=== PATIENT | male | born 1965 | race Caucasian/White ===

== ENCOUNTER 2016-11-23 00:56 | Emergency (ER) | payer OTHER ==
[2016-11-23 01:01] VITALS: BP 136/65
--- NOTE | 2016-11-23 01:42 | ED ---
Tonia Concepcion Matthew, scribed for Bryan Flores MD on 11/23/16 at 0138 . Psychiatric Complaint - HPI Summary HPI Summary: A 51 y/o male presents to the ED with panic attack since 5 days ago. He states that he has 2 panic attacks per day, which last between 2-3 hours. He believes his symptoms began, because he has been decreasing his dosage of seroquel. He has a Hx of panic attacks. - History Of Current Complaint Chief Complaint: [facility]entalHealth Time Seen by Provider: 11/23/16 01:31 Hx Obtained From: Patient Onset/Duration: Sudden Onset, Lasting Hours, Resolved Timing: Intermittent Episode Lasting - 2-3 hours, twice daily Severity Initially: Moderate Severity Currently: Moderate Character: Anxious Aggravating Factor(s): Other - Recent medication change - Allergies/Home Medications Allergies/Adverse Reactions: Allergies Allergy/AdvReac Type Severity Reaction Status Date / Time Shellfish Allergy Allergy Unknown Verified 04/23/14 14:56 Reaction Details PMH/Surg Hx/FS Hx/Imm Hx Endocrine/Hematology History: Denies: Hx Diabetes, Hx Thyroid Disease Cardiovascular History: Denies: Hx Hypertension Respiratory History: Reports: Hx Asthma - child anderson Denies: Hx Chronic Obstructive Pulmonary Disease (COPD) GI History: Denies: Hx Ulcer Psychiatric History: Reports: Other Psychiatric Issues/Disorders - Hx of panic attacks Infectious Disease History: No Infectious Disease History: Denies: Hx Hepatitis, Hx Human Immunodeficiency Virus (HIV), Traveled Outside the [place] in Last 30 Days - Family History Known Family History: Positive: Cardiac Disease, Diabetes - Social History Alcohol Use: Rare Substance Use Type: Reports: None Smoking Status (MU): Heavy Every Day Tobacco Smoker Type: Cigarettes Review of Systems Constitutional: Negative Eyes: Negative ENT: Negative Cardiovascular: Negative Respiratory: Negative Gastrointestinal: Negative Genitourinary: Negative Musculoskeletal: Negative Skin: Negative Neurological: Negative Psychological: Other - Panic Attacks All Other Systems Reviewed And Are Negative: Yes Physical Exam Triage Information Reviewed: Yes Vital Signs On Initial Exam: Initial Vitals Temp Pulse Resp BP Pulse Ox 97.9 F 116 20 136/65 99 11/23/16 00:58 11/23/16 00:58 11/23/16 00:58 11/23/16 00:58 11/23/16 00:58 Vital Signs Reviewed: Yes Appearance: Positive: Well-Appearing, No Pain Distress Skin: Positive: Warm Head/Face: Positive: Normal Head/Face Inspection Eyes: Positive: JOCELYN ENT: Positive: Hearing grossly normal Neck: Positive: Supple Respiratory/Lung Sounds: Positive: Breath Sounds Present Cardiovascular: Positive: RRR Abdomen Description: Positive: Nontender, Soft Musculoskeletal: Positive: Strength/ROM Intact Neurological: Positive: Alert, Oriented to Person Place, Time Psychiatric: Positive: Anxious Diagnostics - Vital Signs Vital Signs Temp Pulse Resp BP Pulse Ox 11/23/16 01:01 97.9 F 116 20 136/65 99 11/23/16 00:58 97.9 F 116 20 136/65 99 - Laboratory Result Diagrams: 11/23/16 01:50 11/23/16 01:50 Lab Statement: Any lab studies that have been ordered have been reviewed, and results considered in the medical decision making process. Course/Dx - Course Assessment/Plan: A 51 y/o male presents to the ED with panic attack since 5 days ago. He states that he has 2 panic attacks per day, which last between 2-3 hours. He believes his symptoms began, because he has been decreasing his dosage of Seroquel. He has a Hx of panic attacks. Labs were reviewed. The patient was cleared for a MHE and have evaluation determined to be safe for discharge. - Differential Dx/Clinical Impression Provider Diagnosis: Panic attack Discharge - Discharge Plan Condition: Stable Disposition: HOME Patient Education Materials: Panic Attack (ED) Referrals: Maxwell Suero MD [Primary Care Provider] - As Soon As Possible (Please call Dr. Suero , at your earliest convenience, for medication management.) The documentation as recorded by the Tonia aldana Matthew accurately reflects the service I personally performed and the decisions made by , Bryan Flores MD.
[2016-11-23 02:01] LABS: Hematocrit 39 % (42-52); Hemoglobin 13.1 g/dl (14.0-18.0); Mean Corpuscular HGB Conc 34 g/dl (31-36); Mean Corpuscular Hemoglobin 32 pg (27-31); Mean Corpuscular Volume 95 fL (80-94); Mean Platelet Volume 7 um3 (7.4-10.4); Red Blood Count 4.07 10^6/ul (4.0-5.4); Red Cell Distribution Width 13 % (10.5-15); White Blood Count 8.4 10^3/ul (3.5-10.8)
[2016-11-23 02:12] LABS: ALT 22 U/L (7-52); AST 21 U/L (13-39); Albumin 4.1 g/dL (3.2-5.2); Alkaline Phosphatase 85 U/L (34-104); Anion Gap 7 mmol/L (2-11); Blood Urea Nitrogen 14 mg/dL (6-24); CO2 Carbon Dioxide 25 mmol/L (22-32); Chloride 105 mmol/L (101-111); EGFR African American 77.5 (>60); EGFR Non-African American 60.3 (>60); Globulin 2.7 g/dL (2-4); Glucose 123 mg/dL (70-100); Potassium 3.6 mmol/L (3.5-5.0); Sodium 137 mmol/L (133-145); Total Protein 6.8 g/dL (6.4-8.9)
[2016-11-23 02:21] LABS: Acetaminophen < 15 mcg/mL; Alcohol < 10 mg/dL (<10); Salicylate < 2.50 mg/dL (<30)
[2016-11-23 02:33] LABS: TSH (Thyroid Stimulating Horm) 5.56 mcIU/mL (0.34-5.60)
== END 2016-11-23 03:20 | disposition home or self-care (01) ==
LOC: ED 00:56
DX: F41.0 Panic disorder [episodic paroxysmal anxiety] (principal); F17.210 Nicotine dependence, cigarettes, uncomplicated
CPT/HCPCS: 36415; 80053; 80320; 80329; 84443; 85025; 99284; G0480

== ENCOUNTER 2016-11-25 21:29 | Emergency (ER) | payer OTHER ==
[2016-11-25] MEDS ORDERED: Aspirin Low Dose CHEW TAB* 81 MG PO ONE (21:45)
[2016-11-25 22:07] LABS: Hematocrit 40 % (42-52); Hemoglobin 13.5 g/dl (14.0-18.0); Mean Corpuscular HGB Conc 34 g/dl (31-36); Mean Corpuscular Hemoglobin 32 pg (27-31); Mean Corpuscular Volume 95 fL (80-94); Mean Platelet Volume 7 um3 (7.4-10.4); Red Blood Count 4.16 10^6/ul (4.0-5.4); Red Cell Distribution Width 13 % (10.5-15); White Blood Count 8.2 10^3/ul (3.5-10.8)
[2016-11-25 22:25] LABS: Troponin I 0.01 ng/mL (<0.04)
--- NOTE | 2016-11-25 22:25 | RAD ---
INDICATION: Chest pain COMPARISON: None. TECHNIQUE: Single AP portable view of the chest was obtained. FINDINGS: Image quality is compromised due to the relative inferiority of a portable chest x-ray. The heart and mediastinum exhibit normal size and contour. The lungs are grossly clear. There is no evidence of a large pleural effusion. Visualized bones are normal for the patient's age. IMPRESSION: No radiographic evidence for acute cardiopulmonary abnormality on this portable chest x-ray.
[2016-11-25 22:27] LABS: ALT 20 U/L (7-52); AST 18 U/L (13-39); Albumin 4.1 g/dL (3.2-5.2); Alkaline Phosphatase 83 U/L (34-104); Anion Gap 8 mmol/L (2-11); BUN/Creatinine Ratio 7.4 (8-20); Blood Urea Nitrogen 9 mg/dL (6-24); CO2 Carbon Dioxide 25 mmol/L (22-32); Calcium 9.2 mg/dL (8.6-10.3); Chloride 104 mmol/L (101-111); EGFR Non-African American 63.7 (>60); Globulin 2.8 g/dL (2-4); Glucose 137 mg/dL (70-100); Potassium 3.3 mmol/L (3.5-5.0); Sodium 137 mmol/L (133-145); Total Protein 6.9 g/dL (6.4-8.9)
[2016-11-26 01:36] LABS: Acetaminophen < 15 mcg/mL; Alcohol < 10 mg/dL (<10); Salicylate < 2.50 mg/dL (<30)
[2016-11-26 01:46] LABS: TSH (Thyroid Stimulating Horm) 2.27 mcIU/mL (0.34-5.60)
[2016-11-26 06:21] VITALS: BP 99/53
--- NOTE | 2016-12-14 12:37 | ED ---
Brandie Concepcion Michael, scribed for Dee Bar MD on 11/25/16 at 2156 . HPI Chest Pain - HPI Summary HPI Summary: 51 y/o male was BIBA to the ED presenting with constant CP that started 7 days ago. The pt describes the CP as crushing throughout his entire torso. The CP does not radiate to other areas, and it is aggravated by movement and not by deep breaths. He also c/o SOB. The pt denies all other symptoms. He is a former smoker who quit 4 months ago. The FHx is significant for ID before the age of 55 , blood cots, and HTN. - History of Current Complaint Chief Complaint: EDChestPainROMI Hx Obtained From: Patient, EMS, Medical Records Onset/Duration: Started Days Ago - 7, Still Present Timing: Constant Initial Severity: Moderate Current Severity: Moderate Pain Intensity: 9 Pain Scale Used: 0-10 Numeric Chest Pain Location: Diffuse Chest Pain Radiates: No Character: Crushing Aggravating Factor(s): Movement Alleviating Factor(s): Nothing Associated Signs and Symptoms: Positive: Chest Pain, Shortness of Breath - Allergy/Home Medications Allergies/Adverse Reactions: Allergies Allergy/AdvReac Type Severity Reaction Status Date / Time Shellfish Allergy Allergy Unknown Verified 04/23/14 14:56 Reaction Details PMH/Surg Hx/FS Hx/Imm Hx Endocrine/Hematology History: Denies: Hx Diabetes, Hx Thyroid Disease Cardiovascular History: Denies: Hx Hypertension Respiratory History: Reports: Hx Asthma - child anderson Denies: Hx Chronic Obstructive Pulmonary Disease (COPD) GI History: Denies: Hx Ulcer Psychiatric History: Reports: Other Psychiatric Issues/Disorders - Hx of panic attacks Denies: Hx Eating Disorder Infectious Disease History: Denies: Hx Hepatitis, Hx Human Immunodeficiency Virus (HIV), Traveled Outside the [place] in Last 30 Days - Family History Known Family History: Positive: Cardiac Disease, Hypertension, Diabetes, Other - blood clots - Social History Lives: Alone Alcohol Use: Rare Substance Use Type: Reports: None Smoking Status (MU): Heavy Every Day Tobacco Smoker Type: Cigarettes Review of Systems Negative: Fever Positive: Chest Pain Positive: Shortness Of Breath All Other Systems Reviewed And Are Negative: Yes Physical Exam Triage Information Reviewed: Yes Vital Signs On Initial Exam: Initial Vitals Temp Pulse Resp BP Pulse Ox 99.2 F 92 16 113/89 98 11/25/16 21:38 11/25/16 21:38 11/25/16 21:38 11/25/16 21:38 11/25/16 21:38 Vital Signs Reviewed: Yes Appearance: Positive: Well-Appearing, No Pain Distress Skin: Positive: Warm, Skin Color Reflects Adequate Perfusion, Dry Eyes: Positive: EOMI, JOCELYN ENT: Positive: Hearing grossly normal, TMs normal Neck: Positive: Supple, Nontender Respiratory/Lung Sounds: Positive: Clear to Auscultation, Breath Sounds Present. Negative: Rales, Rhonchi, Wheezes Cardiovascular: Positive: RRR, Other - no gallops. Negative: Murmur, Rub Abdomen Description: Positive: Nontender, Soft, Other: - no rebound. Negative: Distended, Guarding Bowel Sounds: Positive: Present Musculoskeletal: Positive: Strength/ROM Intact. Negative: Edema Left, Edema Right Neurological: Positive: Sensory/Motor Intact, Alert, Oriented to Person Place, Time, CN Intact II-III Psychiatric: Positive: Affect/Mood Appropriate Diagnostics - Vital Signs Vital Signs Temp Pulse Resp BP Pulse Ox 11/25/16 21:38 99.2 F 92 16 113/89 98 - Laboratory Lab Results: Lab Results 11/25/16 11/25/16 11/25/16 Range/Units 22:00 22:00 22:00 WBC 8.2 (3.5-10.8) 10^3/ul RBC 4.16 (4.0-5.4) 10^6/ul Hgb 13.5 L (14.0-18.0) g/dl Hct 40 L (42-52) % MCV 95 H (80-94) fL MCH 32 H (27-31) pg MCHC 34 (31-36) g/dl RDW 13 (10.5-15) % Plt Count 220 (150-450) 10^3/ul MPV 7 L (7.4-10.4) um3 Neut % (Auto) 74.8 (38-83) % Lymph % (Auto) 16.6 L (25-47) % [place] % (Auto) 7.7 (1-9) % Eos % (Auto) 0.4 (0-6) % Baso % (Auto) 0.5 (0-2) % Absolute Neuts (auto) 6.2 (1.5-7.7) 10^3/ul Absolute Lymphs (auto) 1.4 (1.0-4.8) 10^3/ul Absolute Monos (auto) 0.6 (0-0.8) 10^3/ul Absolute Eos (auto) 0 (0-0.6) 10^3/ul Absolute Basos (auto) 0 (0-0.2) 10^3/ul Absolute Nucleated RBC 0 10^3/ul Nucleated RBC % 0 Sodium 137 (133-145) mmol/L Potassium 3.3 L (3.5-5.0) mmol/L Chloride 104 (101-111) mmol/L Carbon Dioxide 25 (22-32) mmol/L Anion Gap 8 (2-11) mmol/L BUN 9 (6-24) mg/dL Creatinine 1.21 H (0.67-1.17) mg/dL Est GFR ( Amer) 82.0 (>60) Est GFR (Non-Af Amer) 63.7 (>60) BUN/Creatinine Ratio 7.4 L (8-20) Glucose 137 H (70-100) mg/dL Lactic Acid 1.5 (0.5-2.0) mmol/L Calcium 9.2 (8.6-10.3) mg/dL Total Bilirubin 0.50 (0.2-1.0) mg/dL AST 18 (13-39) U/L ALT 20 (7-52) U/L Alkaline Phosphatase 83 (34-104) U/L Troponin I 0.01 (<0.04) ng/mL Total Protein 6.9 (6.4-8.9) g/dL Albumin 4.1 (3.2-5.2) g/dL Globulin 2.8 (2-4) g/dL Albumin/Globulin Ratio 1.5 (1-3) TSH 2.27 (0.34-5.60) mcIU/mL Salicylates < 2.50 (<30) mg/dL Acetaminophen < 15 mcg/mL Serum Alcohol < 10 (<10) mg/dL Result Diagrams: 11/25/16 22:00 11/25/16 22:00 Lab Statement: Any lab studies that have been ordered have been reviewed, and results considered in the medical decision making process. - Radiology CXR Xray Interpretation: No Acute Changes Radiology Interpretation Completed By: Radiologist - EKG EK EKG Rhythm: Sinus Rhythm - [address] Segment: Normal Ectopy: None EKG Interpretation: no st elevation Chest Pain Course/Dx - Course Course Of Treatment: Pt is clear for MHE and transferred to flex unit at 2348 - Diagnoses Provider Diagnoses: Anxiety disorder, Chest pain Discharge - Discharge Plan Condition: Stable Disposition: HOME Referrals: Maxwell Suero MD [Primary Care Provider] - Additional Instructions: Per completion of a mental health evaluation, you are cleared for release and do not require inpatient psychiatric hospitalization at this time. Please go to nearest emergency room or call 911 if safety concerns arise or condition worsens. Contact [facility] for Urgent Intake [address] [place] [address] [phone] Important Phone Numbers: [facility] Unit ph:[phone] Suicide Prevention and Crisis Services ph:[phone] [place] [facility]eline ph:[phone] ([phone]) Alcoholics Anonymous ph:[phone] [facility] ph:[phone] [place] [employer] ph:[phone] The documentation as recorded by the Brandie aldana Michael accurately reflects the service I personally performed and the decisions made by me, Dee Bar MD.
== END 2016-11-26 06:20 | disposition home or self-care (01) ==
LOC: ED 21:29
DX: F41.9 Anxiety disorder, unspecified (principal); R07.9 Chest pain, unspecified; R06.02 Shortness of breath; F17.210 Nicotine dependence, cigarettes, uncomplicated
CPT/HCPCS: 36415; 71010; 80053; 80320; 80329; 83605; 84443; 84484; 85025; 93005; 99282; G0480

== ENCOUNTER 2016-11-27 13:28 | Observation (INO) | payer OTHER ==
--- NOTE | 2016-11-27 15:00 | RAD ---
Indication: Shortness of breath, cough, palpitations. History of tobacco use. Comparison: November 25, 2016 Technique: Upright AP 1425 hours Report: Clear lungs and pleural spaces. Negative for pneumothorax. The heart, pulmonary vasculature, and mediastinal contours are unremarkable. Unremarkable osseous structures and soft tissue contours. IMPRESSION: No evidence for acute intrathoracic disease.
[2016-11-27] MEDS: NS 0.9% 1000 ML* 1,000 ML IV SCH ×2 (15:13→23:17)
[2016-11-27 15:19] LABS: Hematocrit 44 % (42-52); Hemoglobin 14.8 g/dl (14.0-18.0); Mean Corpuscular HGB Conc 34 g/dl (31-36); Mean Corpuscular Hemoglobin 32 pg (27-31); Mean Corpuscular Volume 95 fL (80-94); Mean Platelet Volume 7 um3 (7.4-10.4); Red Cell Distribution Width 13 % (10.5-15)
[2016-11-27 16:18] LABS: Acetaminophen < 15 mcg/mL; Alcohol < 10 mg/dL (<10); Salicylate < 2.50 mg/dL (<30)
[2016-11-27 16:51] LABS: ALT 18 U/L (7-52); AST 19 U/L (13-39); Albumin 4.3 g/dL (3.2-5.2); Alkaline Phosphatase 86 U/L (34-104); Anion Gap 10 mmol/L (2-11); Blood Urea Nitrogen 12 mg/dL (6-24); C Reactive Protein 1.05 mg/L (< 5.00); CO2 Carbon Dioxide 23 mmol/L (22-32); Calcium 9.5 mg/dL (8.6-10.3); Chloride 105 mmol/L (101-111); Creatine Kinase 64 U/L (10-223); EGFR African American 73.5 (>60); EGFR Non-African American 57.1 (>60); Glucose 100 mg/dL (70-100); Lipase 19 U/L (11.0-82.0); Magnesium 2.1 mg/dL (1.9-2.7); Potassium 3.6 mmol/L (3.5-5.0); Sodium 138 mmol/L (133-145); Total Protein 7.3 g/dL (6.4-8.9)
--- NOTE | 2016-11-27 20:09 | HP ---
H&P (Free Text) History and Physical: PCP: Jose Suero MD Date/Time of Evaluation: 11/27/20162009 CC: palpitations, SOB HPI: Mr Marion is a 51YO male HX bipolar, agoraphobia, & social anxiety disorder whose quetiapine has recently been being weaned from 300mg daily, now down to 150mg daily. He relates that ~9 days ago he began having palpitations, SOB, and generalized weakness for which he has been seen twice in the ED this week previously. Today he developed a tightness affecting his entire torso ( abdomen & chest) occurring at rest with associated SOB and palpitations. He denies specific chest pain, but relates his heart races when he stands and so he has been remaining in bed more and more. He denies focal W/N/T, change in vision/swallow, light-headedness, N/V/D, F/C, cough, congestion, or other issues. Today he was found to have a BNP in the 300s and his case was discussed between Ulises Brock MD ED and A MD Pio PCP who felt he could be give furosemide and discharged with follow up at his office on Tuesday. However, mr Marion is quite perseverant regarding his symptoms and belief that he " nearly " today. He states he "saw the white light and everything" and is refusing discharge. I explained to him that his ECG and lab values were non- threatening and that his symptoms were most likely related to a resurgence of anxiety previously controlled on the higher dose of quetiapine, but this did not comfort or satisfy him. He reports being advised by Dr Suero to increase his quetiapine to 200mg/daily which he did today. As such, I agreed to monitor him over night on telemetry and obtain an ECHO in the AM to further evaluate his elevated BNP. PMedHx bipolar disorder agoraphobia social anxiety disorder GERD Ambulatory Orders Nursing to reconcile. Quetiapine Fumarate 300 mg PO DAILY 04/23/14 Ranitidine HCl 150 mg PO Q4HR 04/23/14 Ibuprofen [Advil] 600 mg PO 11/24/14 Omeprazole [Prilosec] 20 mg PO 11/24/14 Allergies Shellfish Allergy Allergy (Verified 04/23/14 14:56) Unknown Reaction Details PSurgHx denies SocHx: former smoker quit 4months ago w/ ~20PYHX, denies alcohol or recreational drugs; full code status FamHx: positive for HTN, CAD, & CVA ROS: as above, otherwise reviewed and all were negative Constitutional: NAD, normally developed, well-nourished white male vitals: Vital Signs Temp 37.6 C 11/27/16 13:32 Pulse 77 11/27/16 19:00 Resp 14 11/27/16 19:00 BP 110/65 11/27/16 19:00 Pulse Ox 97 11/27/16 19:00 Intake & Output 11/26/16 11/27/16 11/27/16 23:59 11:59 23:59 Intake Total 1000 Balance 1000 Weight 58.967 kg Intake: IV Fluids 1000 HEENM: atraumatic; sclera/conjunctiva: non-icteric/clear; hearing: clinically intact; oropharynx: clear, mucosa moist Neck: soft tissue: non-tender; thyroid: normal Pulmonary: clear to auscultation bilaterally, good aeration, no accessory muscle use CV: RR/RR, normal S1S2, no carotid bruit, no jugular venous distention, 2+ B DP/ PT, no edema Abdominal: soft, non-distended, non-tender, no rebound/guarding/rigidity, normoactive bowel sounds, no hepatosplenomegaly or masses, no costovertebral angle tenderness Musculoskeletal: general: grossly intact; gait: stable Integumental: normal appearance and texture Psychiatric orientation: AA&O to PPS affect: calm mood: cooperative eye contact: good content: reliable responses: perseverant regarding concern for near sensation insight: fair to poor Testing: Lab Results 11/27/16 11/27/16 11/27/16 Range/Units 15:07 15:07 15:07 WBC 10.0 (3.5-10.8) 10^3/ul RBC 4.60 (4.0-5.4) 10^6/ul Hgb 14.8 (14.0-18.0) g/dl Hct 44 (42-52) % MCV 95 H (80-94) fL MCH 32 H (27-31) pg MCHC 34 (31-36) g/dl RDW 13 (10.5-15) % Plt Count 230 (150-450) 10^3/ul MPV 7 L (7.4-10.4) um3 Neut % (Auto) 79.2 (38-83) % Lymph % (Auto) 12.9 L (25-47) % [place] % (Auto) 7.3 (1-9) % Eos % (Auto) 0.1 (0-6) % Baso % (Auto) 0.5 (0-2) % Absolute Neuts (auto) 7.9 H (1.5-7.7) 10^3/ul Absolute Lymphs (auto) 1.3 (1.0-4.8) 10^3/ul Absolute Monos (auto) 0.7 (0-0.8) 10^3/ul Absolute Eos (auto) 0 (0-0.6) 10^3/ul Absolute Basos (auto) 0 (0-0.2) 10^3/ul Absolute Nucleated RBC 0 10^3/ul Nucleated RBC % 0 INR (Anticoag Therapy) 0.98 (0.89-1.11) APTT 30.5 (26.0-36.3) seconds D-Dimer, Quantitative < 200 (Less Than 230) ng/mL Sodium 138 (133-145) mmol/L Potassium 3.6 (3.5-5.0) mmol/L Chloride 105 (101-111) mmol/L Carbon Dioxide 23 (22-32) mmol/L Anion Gap 10 (2-11) mmol/L BUN 12 (6-24) mg/dL Creatinine 1.33 H (0.67-1.17) mg/dL Est GFR ( Amer) 73.5 (>60) Est GFR (Non-Af Amer) 57.1 (>60) BUN/Creatinine Ratio 9.0 (8-20) Glucose 100 (70-100) mg/dL Lactic Acid (0.5-2.0) mmol/L Calcium 9.5 (8.6-10.3) mg/dL Magnesium 2.1 (1.9-2.7) mg/dL Total Bilirubin 0.60 (0.2-1.0) mg/dL AST 19 (13-39) U/L ALT 18 (7-52) U/L Alkaline Phosphatase 86 (34-104) U/L Total Creatine Kinase 64 (10-223) U/L CK-MB (CK-2) 0.7 (0.6-6.3) ng/mL Troponin I 0.00 (<0.04) ng/mL C-Reactive Protein 1.05 (< 5.00) mg/L B-Natriuretic Peptide ( - 100) pg/mL Total Protein 7.3 (6.4-8.9) g/dL Albumin 4.3 (3.2-5.2) g/dL Globulin 3.0 (2-4) g/dL Albumin/Globulin Ratio 1.4 (1-3) Lipase 19 (11.0-82.0) U/L TSH 1.70 (0.34-5.60) mcIU/mL Salicylates < 2.50 (<30) mg/dL Acetaminophen < 15 mcg/mL Serum Alcohol < 10 (<10) mg/dL 11/27/16 11/27/16 Range/Units 15:07 15:07 WBC (3.5-10.8) 10^3/ul RBC (4.0-5.4) 10^6/ul Hgb (14.0-18.0) g/dl Hct (42-52) % MCV (80-94) fL MCH (27-31) pg MCHC (31-36) g/dl RDW (10.5-15) % Plt Count (150-450) 10^3/ul MPV (7.4-10.4) um3 Neut % (Auto) (38-83) % Lymph % (Auto) (25-47) % [place] % (Auto) (1-9) % Eos % (Auto) (0-6) % Baso % (Auto) (0-2) % Absolute Neuts (auto) (1.5-7.7) 10^3/ul Absolute Lymphs (auto) (1.0-4.8) 10^3/ul Absolute Monos (auto) (0-0.8) 10^3/ul Absolute Eos (auto) (0-0.6) 10^3/ul Absolute Basos (auto) (0-0.2) 10^3/ul Absolute Nucleated RBC 10^3/ul Nucleated RBC % INR (Anticoag Therapy) (0.89-1.11) APTT (26.0-36.3) seconds D-Dimer, Quantitative (Less Than 230) ng/mL Sodium (133-145) mmol/L Potassium (3.5-5.0) mmol/L Chloride (101-111) mmol/L Carbon Dioxide (22-32) mmol/L Anion Gap (2-11) mmol/L BUN (6-24) mg/dL Creatinine (0.67-1.17) mg/dL Est GFR ( Amer) (>60) Est GFR (Non-Af Amer) (>60) BUN/Creatinine Ratio (8-20) Glucose (70-100) mg/dL Lactic Acid 0.7 (0.5-2.0) mmol/L Calcium (8.6-10.3) mg/dL Magnesium (1.9-2.7) mg/dL Total Bilirubin (0.2-1.0) mg/dL AST (13-39) U/L ALT (7-52) U/L Alkaline Phosphatase (34-104) U/L Total Creatine Kinase (10-223) U/L CK-MB (CK-2) (0.6-6.3) ng/mL Troponin I (<0.04) ng/mL C-Reactive Protein (< 5.00) mg/L B-Natriuretic Peptide 382 H ( - 100) pg/mL Total Protein (6.4-8.9) g/dL Albumin (3.2-5.2) g/dL Globulin (2-4) g/dL Albumin/Globulin Ratio (1-3) Lipase (11.0-82.0) U/L TSH (0.34-5.60) mcIU/mL Salicylates (<30) mg/dL Acetaminophen mcg/mL Serum Alcohol (<10) mg/dL ECG, personally reviewed: NSR rate 84, no ischemia CXR, personally reviewed: IMPRESSION: No evidence for acute intrathoracic disease. Impression: 51M presenting with SOB, palpitations, & generalized weakness DIAGNOSIS & PLAN Primary palpitations, SOB, generalized weakness : BNP elevated ? etiology : telemetry : trend troponin : supplemental oxygen : check ECHO in AM : check orthostatic vitals : TSH normal : supportive care anxiety : increase quetiapine to 100mg BID Secondary GERD : continue ranitidine & omeprazole once reconciled Admission Rational: CDU observation for palpitations & SOB DVTp: DWAYNE Code Status: full
--- NOTE | 2016-11-27 20:11 | ED ---
Jojo Concepcion Erika, scribed for Lamont Brock MD on 11/27/16 at 1556 . Palpitations / Dysrhythmia - HPI Summary HPI Summary: Patient is a 51-year-old male presenting to the ED with a CC of palpitations for the past 6-7 days. Patient reports that he can feel his heart rate increase and decrease, and sometimes he can feel a pounding sensation. He denies feeling skipped beats. Patient also reports 9 days of fatigue, weakness, lightheadedness , chest pain, and SOB. Patient reports he has had decreased PO intake since . He also notes that he has SOB with exertion for at least the last 3 months. Patient denies Hx stress test. Hx agoraphobia, but patient reports he has been able to hike in the last 3 months, but not in the past 9 days. Patient takes seraquil. He denies Hx HTN. FHx CAD, CABG, CVA, HTN. - History of Current Complaint Chief Complaint: EDDysrhythmPalp Time Seen by Provider: 11/27/16 14:32 Hx Obtained From: Patient, Family/Prospecting Observer - Brother Onset/Duration: Gradual Onset, Lasting Weeks - about 9 days, Still Present Timing: Constant Severity Currently: Moderate Character: Slow, Fast, Pounding Alleviating: Nothing Associated Signs & Symptoms: Lightheadedness, Chest Pain, Shortness of Breath - Allergy/Home Medications Allergies/Adverse Reactions: Allergies Allergy/AdvReac Type Severity Reaction Status Date / Time Shellfish Allergy Allergy Unknown Verified 04/23/14 14:56 Reaction Details PMH/Surg Hx/FS Hx/Imm Hx Endocrine/Hematology History: Denies: Hx Diabetes, Hx Thyroid Disease Cardiovascular History: Denies: Hx Hypertension Respiratory History: Reports: Hx Asthma - childhood Denies: Hx Chronic Obstructive Pulmonary Disease (COPD) GI History: Denies: Hx Ulcer Psychiatric History: Reports: Hx Panic Disorder Denies: Hx Eating Disorder, Hx of Violent Episodes Against Others - Immunization History Date of Tetanus Vaccine: unk Date of Influenza Vaccine: none Infectious Disease History: No Infectious Disease History: Denies: Hx Hepatitis, Hx Human Immunodeficiency Virus (HIV), Traveled Outside the [place] in Last 30 Days - Family History Known Family History: Positive: Cardiac Disease, Hypertension, Other - CVA - Social History Alcohol Use: Occasionally Substance Use Type: Reports: None Hx Tobacco Use: Yes Smoking Status (MU): Former Smoker Type: Cigarettes Review of Systems Positive: Fatigue Positive: Palpitations, Chest Pain Positive: Shortness Of Breath Neurological: Other - lightheadedness Positive: Weakness All Other Systems Reviewed And Are Negative: Yes Physical Exam Triage Information Reviewed: Yes Vital Signs On Initial Exam: Initial Vitals Temp Pulse Resp BP Pulse Ox 99.7 F 95 18 114/66 98 11/27/16 13:32 11/27/16 13:32 11/27/16 13:32 11/27/16 13:32 11/27/16 13:32 Vital Signs Reviewed: Yes Appearance: Positive: Well-Appearing, No Pain Distress Skin: Positive: Warm, Skin Color Reflects Adequate Perfusion, Dry Head/Face: Positive: Normal Head/Face Inspection Eyes: Positive: EOMI, JOCELYN ENT: Positive: Normal ENT inspection Neck: Positive: Supple, Nontender Respiratory/Lung Sounds: Positive: Clear to Auscultation, Breath Sounds Present Cardiovascular: Positive: RRR Abdomen Description: Positive: Nontender, Soft Bowel Sounds: Positive: Present Musculoskeletal: Positive: Normal, Strength/ROM Intact Neurological: Positive: Normal, Sensory/Motor Intact, Alert, Oriented to Person Place, Time Psychiatric: Positive: Anxious - Trav Coma Scale Coma Scale Total: 15 Diagnostics - Vital Signs Vital Signs Temp Pulse Resp BP Pulse Ox 11/27/16 13:36 95 16 98 11/27/16 13:32 99.7 F 95 18 114/66 98 - Laboratory Lab Results: Lab Results 11/27/16 11/27/16 11/27/16 Range/Units 15:07 15:07 15:07 WBC 10.0 (3.5-10.8) 10^3/ul RBC 4.60 (4.0-5.4) 10^6/ul Hgb 14.8 (14.0-18.0) g/dl Hct 44 (42-52) % MCV 95 H (80-94) fL MCH 32 H (27-31) pg MCHC 34 (31-36) g/dl RDW 13 (10.5-15) % Plt Count 230 (150-450) 10^3/ul MPV 7 L (7.4-10.4) um3 Neut % (Auto) 79.2 (38-83) % Lymph % (Auto) 12.9 L (25-47) % [place] % (Auto) 7.3 (1-9) % Eos % (Auto) 0.1 (0-6) % Baso % (Auto) 0.5 (0-2) % Absolute Neuts (auto) 7.9 H (1.5-7.7) 10^3/ul Absolute Lymphs (auto) 1.3 (1.0-4.8) 10^3/ul Absolute Monos (auto) 0.7 (0-0.8) 10^3/ul Absolute Eos (auto) 0 (0-0.6) 10^3/ul Absolute Basos (auto) 0 (0-0.2) 10^3/ul Absolute Nucleated RBC 0 10^3/ul Nucleated RBC % 0 INR (Anticoag Therapy) 0.98 (0.89-1.11) APTT 30.5 (26.0-36.3) seconds D-Dimer, Quantitative < 200 (Less Than 230) ng/mL Sodium 138 (133-145) mmol/L Potassium 3.6 (3.5-5.0) mmol/L Chloride 105 (101-111) mmol/L Carbon Dioxide 23 (22-32) mmol/L Anion Gap 10 (2-11) mmol/L BUN 12 (6-24) mg/dL Creatinine 1.33 H (0.67-1.17) mg/dL Est GFR ( Amer) 73.5 (>60) Est GFR (Non-Af Amer) 57.1 (>60) BUN/Creatinine Ratio 9.0 (8-20) Glucose 100 (70-100) mg/dL Lactic Acid (0.5-2.0) mmol/L Calcium 9.5 (8.6-10.3) mg/dL Magnesium 2.1 (1.9-2.7) mg/dL Total Bilirubin 0.60 (0.2-1.0) mg/dL AST 19 (13-39) U/L ALT 18 (7-52) U/L Alkaline Phosphatase 86 (34-104) U/L Total Creatine Kinase 64 (10-223) U/L CK-MB (CK-2) 0.7 (0.6-6.3) ng/mL Troponin I 0.00 (<0.04) ng/mL C-Reactive Protein 1.05 (< 5.00) mg/L B-Natriuretic Peptide ( - 100) pg/mL Total Protein 7.3 (6.4-8.9) g/dL Albumin 4.3 (3.2-5.2) g/dL Globulin 3.0 (2-4) g/dL Albumin/Globulin Ratio 1.4 (1-3) Lipase 19 (11.0-82.0) U/L TSH 1.70 (0.34-5.60) mcIU/mL Salicylates < 2.50 (<30) mg/dL Acetaminophen < 15 mcg/mL Serum Alcohol < 10 (<10) mg/dL 11/27/16 11/27/16 Range/Units 15:07 15:07 WBC (3.5-10.8) 10^3/ul RBC (4.0-5.4) 10^6/ul Hgb (14.0-18.0) g/dl Hct (42-52) % MCV (80-94) fL MCH (27-31) pg MCHC (31-36) g/dl RDW (10.5-15) % Plt Count (150-450) 10^3/ul MPV (7.4-10.4) um3 Neut % (Auto) (38-83) % Lymph % (Auto) (25-47) % [place] % (Auto) (1-9) % Eos % (Auto) (0-6) % Baso % (Auto) (0-2) % Absolute Neuts (auto) (1.5-7.7) 10^3/ul Absolute Lymphs (auto) (1.0-4.8) 10^3/ul Absolute Monos (auto) (0-0.8) 10^3/ul Absolute Eos (auto) (0-0.6) 10^3/ul Absolute Basos (auto) (0-0.2) 10^3/ul Absolute Nucleated RBC 10^3/ul Nucleated RBC % INR (Anticoag Therapy) (0.89-1.11) APTT (26.0-36.3) seconds D-Dimer, Quantitative (Less Than 230) ng/mL Sodium (133-145) mmol/L Potassium (3.5-5.0) mmol/L Chloride (101-111) mmol/L Carbon Dioxide (22-32) mmol/L Anion Gap (2-11) mmol/L BUN (6-24) mg/dL Creatinine (0.67-1.17) mg/dL Est GFR ( Amer) (>60) Est GFR (Non-Af Amer) (>60) BUN/Creatinine Ratio (8-20) Glucose (70-100) mg/dL Lactic Acid 0.7 (0.5-2.0) mmol/L Calcium (8.6-10.3) mg/dL Magnesium (1.9-2.7) mg/dL Total Bilirubin (0.2-1.0) mg/dL AST (13-39) U/L ALT (7-52) U/L Alkaline Phosphatase (34-104) U/L Total Creatine Kinase (10-223) U/L CK-MB (CK-2) (0.6-6.3) ng/mL Troponin I (<0.04) ng/mL C-Reactive Protein (< 5.00) mg/L B-Natriuretic Peptide 382 H ( - 100) pg/mL Total Protein (6.4-8.9) g/dL Albumin (3.2-5.2) g/dL Globulin (2-4) g/dL Albumin/Globulin Ratio (1-3) Lipase (11.0-82.0) U/L TSH (0.34-5.60) mcIU/mL Salicylates (<30) mg/dL Acetaminophen mcg/mL Serum Alcohol (<10) mg/dL Result Diagrams: 11/27/16 15:07 11/27/16 15:07 Lab Statement: Any lab studies that have been ordered have been reviewed, and results considered in the medical decision making process. - Radiology CXR Radiology Interpretation Completed By: Radiologist - IMPRESSION: No evidence for acute intrathoracic disease. - EKG 13:27 Cardiac Rate: NL - at 88 bpm EKG Rhythm: Sinus Rhythm Ectopy: None EKG Interpretation: ST elevation in V3-V4 which is similar to his EKG on 2016 Re-Evaluation - Re-Evaluation First Eval Re-Evaluation Time: 19:25 Comment: Discussed Dr. Gomez's recommendations. Patient states he "saw the light today" and believes he needs to be admitted. Will consult with hospitalist. Course/Dx - Course Course Of Treatment: NO CRITICAL CARE TIME. Assessment/Plan: DISCUSSED RESULTS WITH DR GOMEZ AND PATIENT/BROTHER. PATIENT STATES HE "SAW THE WHITE LIGHT" TODAY AND WISHES TO BE ADMITTED. ADMIT HOSPITALIST STABLE. - Diagnoses Provider Diagnoses: Dyspnea, Palpitations, Chest pain, Anxiety - Physician Notifications Discussed Care Of Patient With: Dr. Gomez (Patient's PCP/Hospitalist) at 17:46 - Discussed plan of care. Recommends starting him on a diuretic and having him follow up with Dr. Gomez on Tuesday. Dr. Wright (hospitalist) at 19:33 - agrees to admit. Discharge - Discharge Plan Condition: Stable Disposition: ADMITTED TO [facility] Referrals: Maxwell Gomez MD [Primary Care Provider] - The documentation as recorded by the Jojo aldana Erika accurately reflects the service I personally performed and the decisions made by me, Lamont Brock MD.
[2016-11-27] MEDS ORDERED: Albuterol 2.5 MG/3 ML NEB.SOL* (0.083%) INH PRN (20:42)
[2016-11-27] MEDS ORDERED: CMCS: Melatonin (NF) 3 MG TAB PO PRN (20:42)
[2016-11-27] MEDS ORDERED: Acetaminophen TAB* 325 MG PO PRN (20:42)
[2016-11-27] MEDS ORDERED: Furosemide IV* 10 MG/ML 10 ML VIAL (100 MG) IV ONE (20:42)
[2016-11-27] MEDS ORDERED: Ondansetron INJ* 2 MG/ML VIAL IV PRN (20:45)
[2016-11-27] MEDS ORDERED: Furosemide IV* 10 MG/ML 2 ML VIAL (20 MG) ONE (23:11)
[2016-11-27] MEDS: Aspirin TAB* 325 MG PO SCH (23:17)
[2016-11-27] MEDS: Docusate CAP* 100 MG PO SCH (23:17)
[2016-11-27] MEDS: QUEtiapine TAB* 100 MG PO SCH (23:17)
[2016-11-28] MEDS: Omeprazole CAP* 20 MG PO SCH ×2 (05:13→05:15)
[2016-11-28] MEDS: NS 0.9% 1000 ML* 1,000 ML IV SCH (06:03)
[2016-11-28] MEDS: QUEtiapine TAB* 100 MG PO SCH ×2 (08:36→20:08)
[2016-11-28] MEDS: Aspirin TAB* 325 MG PO SCH (08:36)
[2016-11-28] MEDS: Docusate CAP* 100 MG PO SCH ×2 (09:12→19:59)
--- NOTE | 2016-11-28 11:48 | ECHO ---
Patient: JOANNE BILLS [facility] Rec#: [id number] : 1965 Date: 11/28/2016 Age: 51y Height: 172.72 cm / 68.0 in Weight: 57.15 kg / 126.0 lbs Sex: M BSA: 1.68 Room#: 444 Admit Date#: 11/27/2016 Type: Inpatient Referring: Atilio Wright MD Reading: Neel Walsh MD Supply Officer: Ana Rosa Eldridge [facility] Transthoracic Echocardiogram Indication: Palpitations/SOB BP: 102/78 HR: 78 Rhythm: NSR Findings History: Bipolar,agorophobia,social anxiety,GERD,quit smoking 4 months ago. Technical Comments: The study is technically limited due to poor apical windows. Completed at 1040. Left Ventricle: The left ventricular chamber size is normal. There is no left ventricular hypertrophy. Left ventricular systolic function is at the lower limits of normal. The estimated ejection fraction is 50-55%. Normal left ventricular diastolic filling is observed. Left Atrium: The left atrial chamber size is normal. Right Ventricle: The right ventricular cavity size is normal. The right ventricular global systolic function is normal. Right Atrium: The right atrial cavity size is normal. Aortic Valve: The aortic valve structure is not well visualized. Mitral Valve: The mitral valve leaflets appear normal. There is no evidence of mitral regurgitation. There is no evidence of mitral stenosis. Tricuspid Valve: The tricuspid valve leaflets are normal. There is no evidence of tricuspid valve regurgitation. Unable to estimate the right ventricular systolic pressure. Pulmonic Valve: The pulmonic valve appears normal. There is no evidence of pulmonic regurgitation. There is no pulmonic stenosis. Pericardium: The pericardium appears normal. Aorta: The ascending aorta is not well visualized. There is no dilatation of the aortic arch. There is no dilation of the aortic root. Pulmonary Artery: The main pulmonary artery appears normal. Venous: The inferior vena cava appears normal in size. There is a greater than 50% respiratory change in the inferior vena cava dimension. Summary: There was not any prior study for comparison. Conclusions The left ventricular chamber size is normal. There is no left ventricular hypertrophy. The estimated ejection fraction is 50-55%. No sig valvular disease Measurements Name Value Normal Range RVIDd (AP) 2D 1.9 cm (0.9 - 2.6) IVSd (2D) 0.6 cm (0.6 - 1) LVPWd (2D) 0.8 cm (0.6 - 1) LVIDd (2D) 3.8 cm (3.6 - 5.4) LVIDs (2D) 3 cm - LV FS (2D) 21 % (25 - 45) Aortic Annulus 1.7 cm (1.4 - 2.6) Ao root diameter (2D) 2.8 cm (2.1 - 3.5) Aortic arch 1.5 cm (1.8 - 3.4) Descending Ao 1.4 cm - LA dimension (AP) 2D 2.4 cm (2.3 - 3.8) Name Value Normal Range MV E-wave Vmax 1 m/sec - MV deceleration time 157 msec - MV A-wave Vmax 0.6 m/sec - MV E:A ratio 1.86 ratio - LV septal e' Vmax 0.13 m/sec - LV lateral e' Vmax 0.14 m/sec - LV E:e' septal ratio 7.69 ratio - LV E:e' lateral ratio 7.14 ratio - Name Value Normal Range AV Vmax 1.2 m/sec - AV VTI 21.7 cm - AV peak gradient 6.17 mmHg - AV mean gradient 2.44 mmHg - LVOT Vmax 1.1 m/sec - LVOT VTI 20.4 cm - LVOT peak gradient 4.64 mmHg - LVOT mean gradient 1.97 mmHg - Name Value Normal Range IVC diameter 1.7 cm - Name Value Normal Range PV Vmax 1 m/sec - PV peak gradient 4.21 mmHg -
--- NOTE | 2016-11-28 13:02 | PN ---
Subjective - Subjective Reason for Note: Progress Note History: This is a primary care patient at my medical office. He has a longstanding history of severe agoraphobia/social phobia/anxiety disorder. 3 months ago he weaned himself off seroquel without any help from my office. He has had several panic attacks - these have been associated with palpitations. He has restarted the seroquel, but 2 ~60s episodes led him to come to the emergency room. He was found to have a BNP that was elevated. Today he is feeling well and has had no further cardiac symptoms - no chest pain , dyspnea, palpitations or edema His anxiety disorder is controlled as long as the seroquel is not wearing off. Active Problems: Active Problems Anxiety disorder (Acute) F41.9 Chronic GERD (Acute) K21.9 Former smoker (Acute) Z87.891 Palpitations (Acute) R00.2 Current Medications: Current Medications Acetaminophen (Tylenol Tab*) 650 mg PO Q6H PRN PRN Reason: FEVER/PAIN Albuterol (Ventolin 2.5 Mg/3 Ml Neb.Sherrell*) 2.5 mg INH Q2H PRN PRN Reason: SOB/WHEEZING Aspirin (Aspirin Tab*) 325 mg PO DAILY [facility] Last Admin: 11/28/16 08:36 Dose: 325 mg Docusate Sodium (Colace Cap*) 200 mg PO BID [facility] Last Admin: 11/28/16 09:12 Dose: Not Given Sodium Chloride (Ns 0.9% 1000 Ml*) 1,000 mls @ 150 mls/hr IV PER RATE [facility] Last Admin: 11/28/16 06:03 Dose: 150 mls/hr Melatonin (Melatonin (Nf)) 3 mg PO BEDTIME PRN; Protocol PRN Reason: Sleep Omeprazole (Prilosec Cap*) 20 mg PO DAILY@0600 [facility] Last Admin: 11/28/16 05:15 Dose: Not Given Ondansetron HCl (Zofran Inj*) 4 mg IV Q6H PRN PRN Reason: NAUSEA Quetiapine Fumarate (Seroquel Tab*) 100 mg PO BID [facility] Last Admin: 11/28/16 08:36 Dose: 100 mg Home Medications: Home Medications Medication Instructions Recorded Confirmed Type Quetiapine Fumarate 150 mg PO DAILY 04/23/14 11/27/16 History Ranitidine HCl 300 mg PO DAILY 04/23/14 11/27/16 History Ibuprofen [Advil] 600 mg PO Q6HR PRN 11/24/14 11/27/16 History Allergies: Allergies Allergy/AdvReac Type Severity Reaction Status Date / Time Shellfish Allergy Allergy Unknown Verified 04/23/14 14:56 Reaction Details Objective - Vital Signs Vital Signs: Vital Signs 11/27/16 11/27/16 11/27/16 21:18 21:19 21:30 Temperature 97.6 F Pulse Rate 70 72 72 Respiratory 18 14 12 Rate Blood Pressure 109/65 101/60 103/65 (mmHg) O2 Sat by Pulse 98 94 96 Oximetry 11/27/16 11/27/16 11/28/16 23:16 23:43 03:58 Temperature 98.6 F Pulse Rate 69 84 63 Respiratory 16 16 Rate Blood Pressure 101/58 111/88 83/53 (mmHg) O2 Sat by Pulse 98 99 Oximetry 11/28/16 11/28/16 11/28/16 04:00 07:22 08:00 Temperature 97.5 F Pulse Rate 72 Respiratory 16 Rate Blood Pressure 102/78 95/52 (mmHg) O2 Sat by Pulse 99 Oximetry 11/28/16 11/28/16 11/28/16 08:58 11:25 12:10 Temperature 97.9 F Pulse Rate 71 77 Respiratory 16 16 Rate Blood Pressure 110/60 (mmHg) O2 Sat by Pulse 99 97 Oximetry - Intake and Output Intake and Output: Intake & Output 11/26/16 11/27/16 11/28/16 11/29/16 11:59 11:59 11:59 11:59 Intake Total 1280 Balance 1280 Weight 126 lb 11.2 oz Intake: IV Fluids 980 NS 867 Oral 300 Other: Estimated Void Medium # Bowel Movements 0 # Voids 0 Intake and Output Start: 11/27/16 21: 18 Freq: DAILY@0600,1400,2200 Status: Active Document 11/28/16 06:00 [id number] (Rec: 11/28/16 06:19 [id number]) - Physical Exam General: No Cyanosis, No Anemia, No Jaundice, No Clubbing Lungs and Chest: Yes: Chest Expansion Full, Chest Expansion Symetrica, Percussion Note Resonant, Vessicular Breath Sounds. No: Crackles, Wheezes, Respiratory Distress, Use of Accessory Muscles Heart Rate and Rhythm: Regular JVP: Not Elevated Additional Cardiovascular: Yes: Normal Heart Sounds. No: Heart Murmur, Pedal Edema Abdominal Exam: Yes: Soft, Bowel Sounds Present. No: Distention, Abdominal Mass , Abdominal Tenderness - Neuro Psychiatric: Anxious Results - Results Lab Results: Laboratory Results - last 24 hr 11/28/16 11/28/16 00:27 07:36 Troponin I 0.00 0.00 Radiology Results: Patient Name: JOANNE BILLS Medical Record#: [id number] Ordering Physician: Lamont Brock MD Acct.#: [id number] : 1965 Age: 51 Sex: M Location: EMERGENCY DEPARTMENT Exam Date: 11/27/161415 ADM Status: REG ER Order Information: CHEST AP PORTABLE Accession Number: [id number] CPT: 64254 Indication: Shortness of breath, cough, palpitations. History of tobacco use. Comparison: November 25, 2016 Technique: Upright AP 1425 hours Report: Clear lungs and pleural spaces. Negative for pneumothorax. The heart, pulmonary vasculature, and mediastinal contours are unremarkable. Unremarkable osseous structures and soft tissue contours. IMPRESSION: No evidence for acute intrathoracic disease. <Electronically signed by Angus Epps MD in OV> 11/27/161455 Dictated By: Angus Epps MD Dictated Date/Time: 11/27/161455 Transcribed Date/Time: 11/27/161453 Copy to: CC:Maxwell Suero MD; Lamont Brock MD Imaging - [facility] Imaging - [facility] Imaging - [facility] [address] [place] [id number] ph ([phone]) ph ([phone]) ph ([phone]) 1 of 1 Other Results/Reports: Echocardiogram Conclusions The left ventricular chamber size is normal. There is no left ventricular hypertrophy. The estimated ejection fraction is 50-55%. No sig valvular disease Assessment - Problem List Assessment: Patient Problems Anxiety disorder (Acute) Chronic GERD (Acute) Former smoker (Acute) Palpitations (Acute) Plan: He presented with a recent history of paroxysmal palpitations and anxiety. He presented x 3 to ED and x 1 to my office. I suspect he had a tachydysrhythmia that led to the increase in his BNP. He has had normal sinus rhythm on telemetry. His D-dimer is not elevated mostly ruling out PE. His transthoracic echocardiogram rules out structural abnormalities and also evidence of cardiomyopathy. I will keep him in for further telemetry and a stress test tomorrow morning. I will treat his anxiety disorder with seroquel 100 mg qam and 200 mg qhs I discussed this plan with the patient and he agrees with the proposal.
[2016-11-28] MEDS: Al Hydrox/Mg Hydrox/Simet LIQ* 30 ML UDC PO PRN (17:47)
[2016-11-29] MEDS: Omeprazole CAP* 20 MG PO SCH (05:23)
--- NOTE | 2016-11-29 07:23 | PN ---
Subjective - Subjective Reason for Note: Discharge Note History: Contingent discharge progress note. He has had no dysrhythmias. He has a brief episode of sinus tachycardia. He has had no symptoms overnight - in particular, no chest pain, dyspnea, palpitations. He has had some heartburn relieved by mylanta Active Problems: Active Problems Anxiety disorder (Acute) F41.9 Chronic GERD (Acute) K21.9 Former smoker (Acute) Z87.891 Palpitations (Acute) R00.2 Current Medications: Current Medications Acetaminophen (Tylenol Tab*) 650 mg PO Q6H PRN PRN Reason: FEVER/PAIN Al Hydrox/Mg Hydrox/Simethicone (Maalox Plus*) 30 ml PO Q6H PRN PRN Reason: HEARTBURN Last Admin: 11/28/16 17:47 Dose: 30 ml Albuterol (Ventolin 2.5 Mg/3 Ml Neb.Sherrell*) 2.5 mg INH Q2H PRN PRN Reason: SOB/WHEEZING Aspirin (Aspirin Tab*) 325 mg PO DAILY [facility] Last Admin: 11/28/16 08:36 Dose: 325 mg Docusate Sodium (Colace Cap*) 200 mg PO BID [facility] Last Admin: 11/28/16 19:59 Dose: Not Given Melatonin (Melatonin (Nf)) 3 mg PO BEDTIME PRN; Protocol PRN Reason: Sleep Omeprazole (Prilosec Cap*) 20 mg PO DAILY@0600 [facility] Last Admin: 11/29/16 05:23 Dose: 20 mg Ondansetron HCl (Zofran Inj*) 4 mg IV Q6H PRN PRN Reason: NAUSEA Quetiapine Fumarate (Seroquel Tab*) 100 mg PO BID [facility] Last Admin: 11/28/16 20:08 Dose: 100 mg Home Medications: Home Medications Medication Instructions Recorded Confirmed Type Quetiapine Fumarate 150 mg PO DAILY 04/23/14 11/27/16 History Ranitidine HCl 300 mg PO DAILY 04/23/14 11/27/16 History Ibuprofen [Advil] 600 mg PO Q6HR PRN 11/24/14 11/27/16 History Allergies: Allergies Allergy/AdvReac Type Severity Reaction Status Date / Time Shellfish Allergy Allergy Unknown Verified 04/23/14 14:56 Reaction Details Objective - Vital Signs Vital Signs: Vital Signs 11/28/16 11/28/16 11/28/16 07:22 08:00 08:58 Temperature 97.5 F Pulse Rate 72 71 Respiratory 16 16 Rate Blood Pressure 95/52 (mmHg) O2 Sat by Pulse 99 99 Oximetry 11/28/16 11/28/16 11/28/16 11:25 12:10 15:04 Temperature 97.9 F 97.2 F Pulse Rate 77 74 Respiratory 16 Rate Blood Pressure 110/60 108/57 (mmHg) O2 Sat by Pulse 97 100 Oximetry 11/28/16 11/28/16 11/28/16 15:45 18:48 19:44 Temperature 98.2 F 97.7 F Pulse Rate 24 71 67 Respiratory 16 15 Rate Blood Pressure 103/57 119/64 97/54 (mmHg) O2 Sat by Pulse 94 100 100 Oximetry 11/28/16 11/29/16 23:32 03:53 Temperature 99.2 F 98.8 F Pulse Rate 70 70 Respiratory 16 16 Rate Blood Pressure 100/57 96/56 (mmHg) O2 Sat by Pulse 98 99 Oximetry - Intake and Output Intake and Output: Intake & Output 11/26/16 11/27/16 11/28/16 11/29/16 11:59 11:59 11:59 11:59 Intake Total 1930 2490 Output Total 700 Balance 1930 1790 Weight 126 lb 11.2 oz 127 lb 4.8 oz Intake: IV Fluids 980 1040 NS 867 1040 Oral 950 1450 Output: Urine 700 Other: Estimated Void Medium Medium # Bowel Movements 0 0 # Voids 0 0 ADLs: Meal Record Start: 11/27/16 21: 18 Freq: DAILY@0900,1400,1800 Status: Active Document 11/28/16 09:00 [id number] (Rec: 11/28/16 13:57 [id number]) Document 11/28/16 18:00 [id number] (Rec: 11/28/16 21:49 [id number] [id number]) Intake and Output Start: 11/27/16 21: 18 Freq: DAILY@0600,1400,2200 Status: Active Document 11/28/16 06:00 [id number] (Rec: 11/28/16 06:19 [id number] [id number]) Document 11/28/16 14:00 [id number] (Rec: 11/28/16 15:10 [id number] [id number]) Document 11/28/16 22:00 [id number] (Rec: 11/28/16 22:09 [id number] [id number]) Document 11/29/16 06:00 [id number] (Rec: 11/29/16 06:19 [id number] [id number]) - Physical Exam General: No Cyanosis, No Anemia, No Jaundice, No Clubbing Lungs and Chest: Yes: Chest Expansion Full, Chest Expansion Symetrica, Percussion Note Resonant, Vessicular Breath Sounds. No: Crackles, Wheezes, Respiratory Distress, Use of Accessory Muscles Heart Rate and Rhythm: Regular JVP: Not Elevated Additional Cardiovascular: Yes: Normal Heart Sounds. No: Pedal Edema Abdominal Exam: Yes: Soft, Bowel Sounds Present. No: Distention, Abdominal Mass , Hepatomegaly Results - Results Lab Results: Laboratory Results - last 24 hr 11/28/16 07:36 Troponin I 0.00 Assessment - Problem List Assessment: Patient Problems Anxiety disorder (Acute) Chronic GERD (Acute) Former smoker (Acute) Palpitations (Acute) Plan: We admitted him on the basis of symptoms of a cardiac arrhythmia plus an elevated BNP that we could not explain. He has not reproduced a rhythm disturbance during this telemetry. I will continue this current plan of a stress test to ensure his presumed rhythm disturbance was not due to ischemic heart disease. He wonders if he will be able to manage the treadmill echocardiogram. This is a manifestation of his anxiety disorder as there are no physical barriers to exercise. If this is normal, I will discharge him home on his usual medication. I will consider an event monitor should he remain symptomatic. If he has a positive stress test I will request a cardiology consultation. I discussed this with the patient and he agrees with this management plan
[2016-11-29] MEDS: QUEtiapine TAB* 100 MG PO SCH (08:44)
[2016-11-29] MEDS: Al Hydrox/Mg Hydrox/Simet LIQ* 30 ML UDC PO PRN (08:44)
[2016-11-29] MEDS ORDERED: LORazepam TAB(*) 0.5 MG PO ONE (10:50)
[2016-11-29 13:26] VITALS: BP 98/57
== END 2016-11-29 16:00 | disposition home or self-care (01) ==
LOC: ED 13:28 → MEDTELE 21:14
PROVIDERS: ADMIT Hospitalist; ATTEND Internal Medicine
DX: R00.2 Palpitations (principal); R06.02 Shortness of breath; R53.1 Weakness; F41.9 Anxiety disorder, unspecified; K21.9 Gastro-esophageal reflux disease without esophagitis; Z79.899 Other long term (current) drug therapy
CPT/HCPCS: 36415; 71010; 80053; 80320; 80329; 82550; 82553; 83605; 83690; 83735; 83880; 84443; 84484; 85025; 85379; 85610; 85730; 86140; 93005; 93306; 93350; 96374; 99283; A9270-GY; G0378; G0480; J1940

== ENCOUNTER 2017-02-28 17:04 | Emergency (ER) | payer OTHER ==
--- NOTE | 2017-02-28 20:35 | RAD ---
INDICATION: Short of breath COMPARISON: November 27, 2016 TECHNIQUE: PA and lateral dual-energy views were obtained. FINDINGS: Bones/Soft Tissues: There are no acute bony findings. Cardiomediastinal: The cardiomediastinal silhouette is normal. Lungs: There are no infiltrates. There is mild hyperinflation Pleura: There are no pleural effusions. Other: None IMPRESSION: NO ACTIVE DISEASE
[2017-02-28 21:15] LABS: Hematocrit 43 % (42-52); Hemoglobin 14.5 g/dl (14.0-18.0); Mean Corpuscular HGB Conc 34 g/dl (31-36); Mean Corpuscular Hemoglobin 33 pg (27-31); Mean Corpuscular Volume 98 fL (80-94); Mean Platelet Volume 7 um3 (7.4-10.4); Red Blood Count 4.39 10^6/ul (4.0-5.4); Red Cell Distribution Width 13 % (10.5-15); White Blood Count 8.8 10^3/ul (3.5-10.8)
[2017-02-28 21:17] LABS: Anion Gap 14 mmol/L (2-11); EGFR African American 82.8 (>60); EGFR Non-African American 64.4 (>60); Manual Entry Verification MD; POC CO2 Carbon Dioxide 24 mmol/L (24-29); POC Chloride 103 mmol/L (98-109); POC Glucose 98 mg/dL (70-105); POC Potassium 3.5 mmol/L (3.5-4.9); POC Sodium 141 mmol/L (138-146)
[2017-02-28 21:32] VITALS: BP 120/80
[2017-02-28 22:03] LABS: Albumin 4.3 g/dL (3.2-5.2); BUN/Creatinine Ratio 10.9 (8-20); Calcium 9.5 mg/dL (8.6-10.3); EGFR African American 83.6 (>60); Globulin 2.9 g/dL (2-4); Potassium 3.5 mmol/L (3.5-5.0); Total Bilirubin 0.6 mg/dL (0.2-1.0); Total Protein 7.2 g/dL (6.4-8.9)
--- NOTE | 2017-02-28 22:14 | ED ---
Respiratory - HPI Summary HPI Summary: 51M presents with SOB that is worst today. He denies any chest pain or palpations. He says he often gets SOB but it never persists this long. He states he believes that his seroquel is too low. He denies it being related to anxiety though. The SOB does not change with anxiety. He denies any wheezing or chest tightness. it is a feeling that he can not catch his breath. He has been worked up for this in the past and everything was normal. did have elevated bnp last time. normal stress test a couple months ago. denies any sore throat, cough, fever, or sinus congestion. He states whenever he gets the SOB he has a hard time staying away from the ED. He has a 30 year smoke history of a pack a day. - History of Current Complaint Chief Complaint: EDGeneral Stated Complaint: DIFF BREATHING Time Seen by Provider: 02/28/17 19:56 Pain Intensity: 0 - Allergy/Home Medications Allergies/Adverse Reactions: Allergies Allergy/AdvReac Type Severity Reaction Status Date / Time Shellfish Allergy Allergy Unknown Verified 04/23/14 14:56 Reaction Details PMH/Surg Hx/FS Hx/Imm Hx Endocrine/Hematology History: Denies: Hx Diabetes, Hx Thyroid Disease, Hx Anemia Cardiovascular History: Reports: Hx Angina Denies: Hx Coronary Artery Disease, Hx Hypercholesterolemia, Hx Hypertension , Hx Myocardial Infarction, Hx Valvular Heart Disease Respiratory History: Reports: Hx Asthma - childhood Denies: Hx Chronic Obstructive Pulmonary Disease (COPD) GI History: Denies: Hx Jaundice, Hx Ulcer Sensory History: Denies: Hx Contacts or Glasses, Hx Hearing Aid Opthamlomology History: Denies: Hx Contacts or Glasses Psychiatric History: Reports: Hx Panic Disorder, Other Psychiatric Issues/ Disorders - Hx of panic attacks Denies: Hx Eating Disorder, Hx of Violent Episodes Against Others - Immunization History Date of Tetanus Vaccine: unk Date of Influenza Vaccine: none Infectious Disease History: No Infectious Disease History: Denies: Hx Hepatitis, Hx Human Immunodeficiency Virus (HIV), Traveled Outside the US in Last 30 Days - Family History Known Family History: Positive: Cardiac Disease, Hypertension, Diabetes, Other - CVA - Social History Alcohol Use: Weekly Substance Use Type: Reports: None Hx Tobacco Use: Yes Smoking Status (MU): Former Smoker Type: Cigarettes Review of Systems Negative: Fever Negative: Chest Pain Positive: Shortness Of Breath. Negative: Cough Negative: Abdominal Pain All Other Systems Reviewed And Are Negative: Yes Physical Exam Triage Information Reviewed: Yes Vital Signs On Initial Exam: Initial Vitals Temp Pulse Resp BP Pulse Ox 98.6 F 80 16 118/73 95 02/28/17 17:22 02/28/17 17:22 02/28/17 17:22 02/28/17 17:22 02/28/17 17:22 Vital Signs Reviewed: Yes Appearance: Positive: Well-Appearing Skin: Positive: Warm, Dry Head/Face: Positive: Normal Head/Face Inspection Eyes: Positive: Normal, Conjunctiva Clear ENT: Positive: Normal ENT inspection, Pharynx normal, TMs normal Respiratory/Lung Sounds: Positive: Clear to Auscultation, Breath Sounds Present Cardiovascular: Positive: Normal, RRR Diagnostics - Vital Signs Vital Signs Temp Pulse Resp BP Pulse Ox 02/28/17 21:29 98.8 F 64 18 120/80 98 02/28/17 17:22 98.6 F 80 16 118/73 95 - Laboratory Lab Results: Lab Results 02/28/17 02/28/17 02/28/17 Range/Units 21:02 21:02 21:02 WBC 8.8 (3.5-10.8) 10^3/ul RBC 4.39 (4.0-5.4) 10^6/ul Hgb 14.5 (14.0-18.0) g/dl Hct 43 (42-52) % MCV 98 H (80-94) fL MCH 33 H (27-31) pg MCHC 34 (31-36) g/dl RDW 13 (10.5-15) % Plt Count 213 (150-450) 10^3/ul MPV 7 L (7.4-10.4) um3 Neut % (Auto) 69.3 (38-83) % Lymph % (Auto) 22.2 L (25-47) % Barron % (Auto) 6.7 (1-9) % Eos % (Auto) 0.5 (0-6) % Baso % (Auto) 1.3 (0-2) % Absolute Neuts (auto) 6.1 (1.5-7.7) 10^3/ul Absolute Lymphs (auto) 2.0 (1.0-4.8) 10^3/ul Absolute Monos (auto) 0.6 (0-0.8) 10^3/ul Absolute Eos (auto) 0 (0-0.6) 10^3/ul Absolute Basos (auto) 0.1 (0-0.2) 10^3/ul Absolute Nucleated RBC 0.01 10^3/ul Nucleated RBC % 0.1 D-Dimer, Quantitative < 200 (Less Than 230) ng/mL POC Venous Sodium (138-146) mmol/L Sodium 137 (133-145) mmol/L POC Venous Potassium (3.5-4.9) mmol/L Potassium 3.5 (3.5-5.0) mmol/L POC Venous Chloride (98-109) mmol/L Chloride 105 (101-111) mmol/L Carbon Dioxide 22 (22-32) mmol/L POC Venous Total CO2 (24-29) mmol/L Anion Gap 10 (2-11) mmol/L BUN 13 (6-24) mg/dL POC Venous BUN (8-26) mg/dL Creatinine 1.19 H (0.67-1.17) mg/dL POC Venous Creatinine (0.6-1.3) mg/dL Est GFR ( Amer) 83.6 (>60) Est GFR (Non-Af Amer) 65.0 (>60) BUN/Creatinine Ratio 10.9 (8-20) Glucose 96 (70-100) mg/dL POC Venous Glucose (70-105) mg/dL Calcium 9.5 (8.6-10.3) mg/dL Total Bilirubin 0.60 (0.2-1.0) mg/dL AST 22 (13-39) U/L ALT 26 (7-52) U/L Alkaline Phosphatase 98 (34-104) U/L Troponin I 0.00 (<0.04) ng/mL B-Natriuretic Peptide ( - 100) pg/mL Total Protein 7.2 (6.4-8.9) g/dL Albumin 4.3 (3.2-5.2) g/dL Globulin 2.9 (2-4) g/dL Albumin/Globulin Ratio 1.5 (1-3) 02/28/17 02/28/17 Range/Units 21:02 21:02 WBC (3.5-10.8) 10^3/ul RBC (4.0-5.4) 10^6/ul Hgb (14.0-18.0) g/dl Hct (42-52) % MCV (80-94) fL MCH (27-31) pg MCHC (31-36) g/dl RDW (10.5-15) % Plt Count (150-450) 10^3/ul MPV (7.4-10.4) um3 Neut % (Auto) (38-83) % Lymph % (Auto) (25-47) % Barron % (Auto) (1-9) % Eos % (Auto) (0-6) % Baso % (Auto) (0-2) % Absolute Neuts (auto) (1.5-7.7) 10^3/ul Absolute Lymphs (auto) (1.0-4.8) 10^3/ul Absolute Monos (auto) (0-0.8) 10^3/ul Absolute Eos (auto) (0-0.6) 10^3/ul Absolute Basos (auto) (0-0.2) 10^3/ul Absolute Nucleated RBC 10^3/ul Nucleated RBC % D-Dimer, Quantitative (Less Than 230) ng/mL POC Venous Sodium 141 (138-146) mmol/L Sodium (133-145) mmol/L POC Venous Potassium 3.5 (3.5-4.9) mmol/L Potassium (3.5-5.0) mmol/L POC Venous Chloride 103 (98-109) mmol/L Chloride (101-111) mmol/L Carbon Dioxide (22-32) mmol/L POC Venous Total CO2 24 (24-29) mmol/L Anion Gap 14 H (2-11) mmol/L BUN (6-24) mg/dL POC Venous BUN 13 (8-26) mg/dL Creatinine (0.67-1.17) mg/dL POC Venous Creatinine 1.20 (0.6-1.3) mg/dL Est GFR ( Amer) 82.8 (>60) Est GFR (Non-Af Amer) 64.4 (>60) BUN/Creatinine Ratio 10.8 (8-20) Glucose (70-100) mg/dL POC Venous Glucose 98 (70-105) mg/dL Calcium (8.6-10.3) mg/dL Total Bilirubin (0.2-1.0) mg/dL AST (13-39) U/L ALT (7-52) U/L Alkaline Phosphatase (34-104) U/L Troponin I (<0.04) ng/mL B-Natriuretic Peptide 39 ( - 100) pg/mL Total Protein (6.4-8.9) g/dL Albumin (3.2-5.2) g/dL Globulin (2-4) g/dL Albumin/Globulin Ratio (1-3) Result Diagrams: 02/28/17 21:02 02/28/17 21:02 Lab Statement: Any lab studies that have been ordered have been reviewed, and results considered in the medical decision making process. - Radiology chest Xray Interpretation: No Acute Changes Radiology Interpretation Completed By: Radiologist - EKG No standard instances Cardiac Rate: NL EKG Rhythm: Sinus Rhythm ST Segment: Normal Disposition - Course Course Of Treatment: 51M presents with SOB that is worst today. He denies any chest pain or palpations. He says he often gets SOB but it never persists this long. He states he believes that his seroquel is too low. He denies it being related to anxiety though. The SOB does not change with anxiety. He denies any wheezing or chest tightness. it is a feeling that he can not catch his breath. He has been worked up for this in the past and everything was normal. did have elevated bnp last time. normal stress test a couple months ago. denies any sore throat, cough, fever, or sinus congestion. He states whenever he gets the SOB he has a hard time staying away from the ED. He has a 30 year smoke history of a pack a day. normal EKG. normal troponin, d-dimer, chest xray. lungs CTA. explained could be anxiety or potential COPD? told to follow up with primary to consider respiratory testing for COPD and to consider having psych meds adjusted. - Differential Dx - Cardiopulmonary Differential Diagnoses - Cardiopulmonary: Acute Dyspnea, CHF, Lower Resp Infection, Pneumothorax, Pulmonary Embolism - Diagnoses Provider Diagnoses: Shortness of breath Discharge - Discharge Plan Condition: Good Disposition: HOME Patient Education Materials: Dyspnea (ED) Referrals: Maxwell Suero MD [Primary Care Provider] - Additional Instructions: Follow up with primary within 5 days Return to ED if develop any new or worsening symptoms
== END 2017-02-28 22:55 | disposition home or self-care (01) ==
LOC: ED 17:04
DX: R06.02 Shortness of breath (principal); Z87.891 Personal history of nicotine dependence
CPT/HCPCS: 36415; 71020; 80048; 80053; 83880; 84484; 85025; 85379; 93005; 99282

== ENCOUNTER 2017-03-08 23:55 | Inpatient (IN) | payer MEDICAID, OTHER ==
[2017-03-09 00:41] LABS: Hematocrit 43 % (42-52); Hemoglobin 14.5 g/dl (14.0-18.0); Mean Corpuscular HGB Conc 34 g/dl (31-36); Mean Corpuscular Hemoglobin 33 pg (27-31); Mean Corpuscular Volume 98 fL (80-94); Mean Platelet Volume 7 um3 (7.4-10.4); Red Blood Count 4.36 10^6/ul (4.0-5.4); Red Cell Distribution Width 13 % (10.5-15); White Blood Count 8.2 10^3/ul (3.5-10.8)
[2017-03-09 00:43] LABS: Urine Bilirubin Negative (Negative); Urine Glucose Negative (Negative); Urine Nitrite Negative (Negative)
[2017-03-09 00:57] LABS: ALT 25 U/L (7-52); AST 17 U/L (13-39); Albumin 4.4 g/dL (3.2-5.2); Alkaline Phosphatase 90 U/L (34-104); Anion Gap 7 mmol/L (2-11); BUN/Creatinine Ratio 14.8 (8-20); Blood Urea Nitrogen 18 mg/dL (6-24); CO2 Carbon Dioxide 26 mmol/L (22-32); Calcium 9.4 mg/dL (8.6-10.3); Chloride 104 mmol/L (101-111); EGFR African American 81.2 (>60); EGFR Non-African American 63.1 (>60); Globulin 2.7 g/dL (2-4); Glucose 104 mg/dL (70-100); Potassium 3.5 mmol/L (3.5-5.0); Sodium 137 mmol/L (133-145); Total Protein 7.1 g/dL (6.4-8.9)
[2017-03-09 01:03] LABS: Acetaminophen < 15 mcg/mL; Alcohol < 10 mg/dL (<10); Salicylate < 2.50 mg/dL (<30)
--- NOTE | 2017-03-09 01:04 | ED ---
Elver Concepcion SooYoung, scribed for Bryan Flores MD on 03/09/17 at 0020 . Psychiatric Complaint - HPI Summary HPI Summary: A 51 y/o M presents to ED for MHE. Pt has secondary c/o mild CP mild dyspnea, and general fatigue onset nine days ago. He describes the CP feeling like "something sitting on my chest." He says the fatigue has been debilitating. Pt has been taking Seroquel for approx 8 years, he's worried his sx may be related to it. PCP is Dr. Suero. - History Of Current Complaint Chief Complaint: EDMentalHealth Time Seen by Provider: 03/09/17 00:12 Hx Obtained From: Patient Onset/Duration: Lasting Days - nine days ago, Still Present Timing: Constant Severity Initially: Moderate Severity Currently: Moderate Related History: Positive For: Prior Psychiatric Issues Has Suicidal: Denies: Thoughts Has Homicidal: Denies: Thoughts - Allergies/Home Medications Allergies/Adverse Reactions: Allergies Allergy/AdvReac Type Severity Reaction Status Date / Time Shellfish Allergy Allergy Unknown Verified 04/23/14 14:56 Reaction Details Home Medications: Home Medications Lansoprazole [Prevacid] 30 mg PO DAILY 03/09/17 [History Confirmed 03/09/17] QUEtiapine TAB* [SEROquel TAB*] 200 mg PO BEDTIME 03/09/17 [History Confirmed ] PMH/Surg Hx/FS Hx/Imm Hx Previously Healthy: No Endocrine/Hematology History: Denies: Hx Diabetes, Hx Thyroid Disease, Hx Anemia Cardiovascular History: Reports: Hx Angina Denies: Hx Coronary Artery Disease, Hx Hypercholesterolemia, Hx Hypertension , Hx Myocardial Infarction, Hx Valvular Heart Disease Respiratory History: Reports: Hx Asthma - childhood Denies: Hx Chronic Obstructive Pulmonary Disease (COPD) GI History: Denies: Hx Jaundice, Hx Ulcer Sensory History: Denies: Hx Contacts or Glasses, Hx Hearing Aid Opthamlomology History: Denies: Hx Contacts or Glasses Psychiatric History: Reports: Hx Panic Disorder, Other Psychiatric Issues/ Disorders - Hx of panic attacks Denies: Hx Eating Disorder, Hx of Violent Episodes Against Others - Immunization History Date of Tetanus Vaccine: unk Date of Influenza Vaccine: none Infectious Disease History: Denies: Hx Hepatitis, Hx Human Immunodeficiency Virus (HIV), Traveled Outside the US in Last 30 Days - Family History Known Family History: Positive: Cardiac Disease, Hypertension, Diabetes, Other - CVA - Social History Occupation: Unemployed - OTHER Lives: With Family Alcohol Use: Weekly Hx Substance Use: No Substance Use Type: Reports: None Hx Tobacco Use: Yes Smoking Status (MU): Former Smoker Type: Cigarettes Review of Systems Positive: Fatigue Positive: Chest Pain Positive: Other - pos: dyspnea Psychological: Other - neg: SI All Other Systems Reviewed And Are Negative: Yes Physical Exam Triage Information Reviewed: Yes Vital Signs On Initial Exam: Initial Vitals Temp Pulse Resp BP Pulse Ox 97.2 F 94 22 116/72 97 03/08/17 23:56 03/08/17 23:56 03/08/17 23:56 03/08/17 23:56 03/08/17 23:56 Vital Signs Reviewed: Yes Appearance: Positive: Well-Appearing, No Pain Distress Skin: Positive: Warm Head/Face: Positive: Normal Head/Face Inspection Eyes: Positive: JOCELYN ENT: Positive: Hearing grossly normal Neck: Positive: Supple Respiratory/Lung Sounds: Positive: Breath Sounds Present Cardiovascular: Positive: RRR Abdomen Description: Positive: Nontender, Soft Bowel Sounds: Positive: Present Musculoskeletal: Positive: Strength/ROM Intact Neurological: Positive: Alert, Oriented to Person Place, Time Diagnostics - Vital Signs Vital Signs Temp Pulse Resp BP Pulse Ox 03/08/17 23:56 97.2 F 94 22 116/72 97 - Laboratory Result Diagrams: 03/09/17 00:31 03/09/17 00:31 Lab Statement: Any lab studies that have been ordered have been reviewed, and results considered in the medical decision making process. Course/Dx - Course Course Of Treatment: Blood work and lab results are without significant abnormalities. Pt is medically cleared for MHE at 0105. Voluntary admission due to SI. - Differential Dx/Clinical Impression Provider Diagnosis: Suicidal ideations - Physician Notifications Instructed by Provider To: Admit As Inpatient Discharge - Discharge Plan Condition: Fair Disposition: ADMITTED TO [facility] Referrals: Maxwell Suero MD [Primary Care Provider] - The documentation as recorded by the Elver aldana SooYoung accurately reflects the service I personally performed and the decisions made by , Bryan Flores MD.
[2017-03-09 01:05] LABS: Benzodiazepine Urine Screen None Detected (None Detect)
[2017-03-09 01:13] LABS: TSH (Thyroid Stimulating Horm) 6.99 mcIU/mL (0.34-5.60)
[2017-03-09] MEDS ORDERED: Al Hydrox/Mg Hydrox/Simet LIQ* 30 ML UDC PO PRN (05:43)
[2017-03-09] MEDS: Omeprazole CAP* 20 MG PO SCH (08:53)
[2017-03-09] MEDS: Vitamin THERAPEUTIC TAB PO SCH (08:53)
[2017-03-09] MEDS: Famotidine TAB* 20 MG PO SCH (08:54)
--- NOTE | 2017-03-09 11:57 | PN ---
[facility]: Group Therapy Note - Service Type Service Type: [id number] Group Psychotherapy - Cognitive Behavioral Group Therapy ( CBT):Patient was attentive and participatory in CBT programming this morning, and remained in good behavioral control. Patient expressed positive insights regarding relevant treatment interventions and goals.
[2017-03-09] MEDS: Nicotine GUM* 2 MG PO PRN ×3 (13:43→20:08)
--- NOTE | 2017-03-09 17:06 | HP ---
H&P (Free Text) History and Physical: HPI: ---- Patient is a 51yo male with PPHx significant for MYLES, Social Anxiety d/o, and Agoraphobia. Patient presented to the [facility] [place] reporting a now 3rd episode of chest discomfort he describes as a sensation of lack of air. Patient also describes a "heavy pressure on his chest" and a sense of "body tension". Patient reports this episode has persisted for 10 days now. Patient reports over the last 10 days, he has experienced episodes of anxiety attacks that last 30-40 minutes, associated with dry mouth and fatigue which resolves only when he lays down for a while. Patient reports also during the last 10 days he has been monitoring his BP, which is averaging 105-110 systolic over 65-70 diastolic. Patient reports his HR stays around the mid 80's, but he reports he becomes tacchycardic in the 110's with light exertion. Patient reports his mood has declined during this episode, mostly 2/2 concerns for his health. He reports his appetite has dropped by 50%. Patient reports his fluid intake is wnl or increased, as has been drinking more water with each anxiety attack to help with the associated dry mouth. Patient denies recent use of supplements, taking any other Rx meds, meds from friends, or illicit substances. Patient reports no hx of abuse of alcohol, reporting 1-2, 12oz beers on average 2-3 nights per week. Patient reports the 1st of these episodes of chest discomfort started in 10/2016 , prompted by patient's self taper off of Seroquel which he'd been on for > 9years for mx of nighttime anxiety and insomnia. He started the taper without medical supervision in 08/2016 while on 300mg po qhs of Seroquel. Patient reports the taper progressed without issue until 10/2016 when he'd dropped to only ~50mg po qhs. Patient experienced at that point the 1st episode of chest discomfort. He reports he called his PCP, who'd been Rx'ing Seroquel and was told to take immediately 200mg of Seroquel, which patient reports he did. Patient reports after doing so his HR went into the 180's and he presented to the [facility] for workup of CP. Paitient was admitted and the cardiac workup reveals all NEG cardiac studies. Patient reports after discharge he was continued on Seroquel, and Rx 150mg po qhs. He reports the 2nd episode occurred 1.5months later, but did not lead to a hospitalization to workup his CP. On interview patient is anxious in affect and reports ongoing anxiety and poor mood due to concerns for his health. He attributes these episodes to Seroquel and requests safe taper off the med. He though would like a full eval to ensure there are no medical causes. Patient denies SI/HI and AH/VH. Patient denies hx of suicide attempts and denies hx of SIB. Patient denies hx of emotional, physical or sexual abuse. Patient has slept well on Seroquel since starting it 9years ago, but is amenable to med modification and initiation of new anxiety/ insomnia meds as Seroquel is tapered off. Patient reports no symptoms of psychosis nor were any elicited on interview. Past Psych Hx: Inpt - This is patient's 1st Outpt - Patient has no recent MH encounters, hx of therapy at [facility] Psychotropic med hx - Zoloft, Seroquel(Rx'd by PCP) Suicide attempt Hx / SIB Hx: Patient denies hx of suicide attempts and denies hx of SIB. Trauma Hx: Patient denies hx of emotional, physical or sexual abuse. Substance Hx: Patient denies abuse of alcohol, reporting 1-2 12oz beers on average 2-3 nights per week. Patient denies hx of use of illicit substances. Medical Hx: NONE Allergies: --------- Shellfish, NKDA Social Hx: -Patient born and raised in [place], [place] -Raised by mom and dad -1 brother, who patient lives next to, but reports they are not close -Single, never -No children -Patient reports he is homosexual and has not had sexual encounter since 2006 -Patient is unemployed and lives off his inheritance from his father -Patient describes his life as "shut-in" since 2006 -Patient reports no guns in the home -Patient reports no stockpiles of pills in the home Home Medications: Medication Instructions Recorded Confirmed Type Ranitidine HCl 300 mg PO DAILY 04/23/14 03/09/17 History Lansoprazole [Prevacid] 30 mg PO DAILY 03/09/17 03/09/17 History QUEtiapine TAB* [SEROquel TAB*] 200 mg PO BEDTIME 03/09/17 03/09/17 History Vitals: ------ Vital Signs (72 hours) 03/08/17 03/09/17 03/09/17 23:56 00:35 05:35 Temperature 97.2 F 97.2 F 97.4 F Pulse Rate 94 94 80 Respiratory 22 22 16 Rate Blood Pressure 116/72 116/72 106/67 (mmHg) O2 Sat by Pulse 97 97 99 Oximetry 03/09/17 03/09/17 03/09/17 07:52 09:22 10:58 Temperature 98.1 F Pulse Rate 80 Respiratory 16 16 18 Rate Blood Pressure 113/68 (mmHg) O2 Sat by Pulse 100 Oximetry 03/10/17 08:04 Temperature 97.8 F Pulse Rate 87 Respiratory 18 Rate Blood Pressure 103/71 (mmHg) O2 Sat by Pulse 98 Oximetry LABS: ----- Laboratory Tests 03/09/17 03/09/17 03/09/17 00:31 00:31 00:31 WBC 8.2 RBC 4.36 Hgb 14.5 Hct 43 MCV 98 H MCH 33 H MCHC 34 RDW 13 Plt Count 225 MPV 7 L Neut % (Auto) 60.8 Lymph % (Auto) 25.5 Mora % (Auto) 11.7 H Eos % (Auto) 1.5 Baso % (Auto) 0.5 Absolute Neuts (auto) 5.0 Absolute Lymphs (auto) 2.1 Absolute Monos (auto) 1.0 H Absolute Eos (auto) 0.1 Absolute Basos (auto) 0 Absolute Nucleated RBC 0 Nucleated RBC % 0 Sodium 137 Potassium 3.5 Chloride 104 Carbon Dioxide 26 Anion Gap 7 BUN 18 Creatinine 1.22 H Est GFR ( Amer) 81.2 Est GFR (Non-Af Amer) 63.1 BUN/Creatinine Ratio 14.8 Glucose 104 H Calcium 9.4 Total Bilirubin 0.40 AST 17 ALT 25 Alkaline Phosphatase 90 Troponin I 0.00 Total Protein 7.1 Albumin 4.4 Globulin 2.7 Albumin/Globulin Ratio 1.6 TSH 6.99 H Urine Color Colorless Urine Appearance Clear Urine pH 7.0 Ur Specific Brackney 1.003 L Urine Protein Negative Urine Ketones Negative Urine Blood Negative Urine Nitrate Negative Urine Bilirubin Negative Urine Urobilinogen Negative Ur Leukocyte Esterase Negative Urine Glucose Negative Salicylates < 2.50 Urine Opiates Screen Acetaminophen < 15 Ur Barbiturates Screen Ur Phencyclidine Scrn Ur Amphetamines Screen U Benzodiazepines Scrn Urine Cocaine Screen U Cannabinoids Screen Serum Alcohol < 10 03/09/17 00:31 WBC RBC Hgb Hct MCV MCH MCHC RDW Plt Count MPV Neut % (Auto) Lymph % (Auto) Mora % (Auto) Eos % (Auto) Baso % (Auto) Absolute Neuts (auto) Absolute Lymphs (auto) Absolute Monos (auto) Absolute Eos (auto) Absolute Basos (auto) Absolute Nucleated RBC Nucleated RBC % Sodium Potassium Chloride Carbon Dioxide Anion Gap BUN Creatinine Est GFR ( Amer) Est GFR (Non-Af Amer) BUN/Creatinine Ratio Glucose Calcium Total Bilirubin AST ALT Alkaline Phosphatase Troponin I Total Protein Albumin Globulin Albumin/Globulin Ratio TSH Urine Color Urine Appearance Urine pH Ur Specific Brackney Urine Protein Urine Ketones Urine Blood Urine Nitrate Urine Bilirubin Urine Urobilinogen Ur Leukocyte Esterase Urine Glucose Salicylates Urine Opiates Screen None detected Acetaminophen Ur Barbiturates Screen None detected Ur Phencyclidine Scrn None detected Ur Amphetamines Screen None detected U Benzodiazepines Scrn None detected Urine Cocaine Screen None detected U Cannabinoids Screen None detected Serum Alcohol PHYSICAL EXAM: GEN - in NAD, looks stated age HEENT - NC/AT, EOEMI, no lesions or discharge noted, conjunctivae clear NECK - supple, no JVD, no LAD, CARDIAC - S1/S2, no discernable murmurs ABD - (+) BS x 4 quad, non-tender EXT - no edema, no lesions MUSCULOSKEL - 5/5 muscle strength in all extremities SKIN - intact, no lesions NEURO - CN 2-12, steady gait MSE: ----- Appearance - thin build, fair hygeine, looks stated age, in NAD Behavior - calm, cooperative Speech - RRR, prosody wnl Eye Contact - good Mood - "anxious" Affect - anxious TP - linear and GD TC - concerned Seroquel has contributed to episodes of CP and fatigue, wants safe taper off med Perception - no signs of psychosis noted or reported Orientation - A&Ox3 Cognition - intact Insight - poor to fair Judgement - poor to fair SI / HI - denies both ASSESSMENT: 1. Somatic symptom d/o, with predominant pain, severe 2. Agoraphobia 3. MYLES 4. Social Anxiety d/o PLAN: ------ 1. Continue admission to [facility] for safety and symptom mx. 2. Will continue Seroquel at lower dose of 150mg po qhs for nighttime anxiety/ insomnia. Plan to taper off Seroquel as this med has been associated with multiple recent cardiovascular issues. Slow taper schedule of 50mg q2week discussed with patient to assure no discontinuation syndrome issues. 3. Patient gives informed consent to start Effexor XR at 37.5mg po qam for anxiety issues with plan to uptitrate. 4. Patient gives informed consent to start Remeron 7.5mg po qhs for nighttime anxiety/ insomnia. 5. Nutrition consulted to develop diet to help increase patient's po. 6. Patient encouraged to ensure proper po fluid intake. 7. Will sidebar with hospitalist regarding eval of abdomen/renal etiology of patient's pain. 8. Continue compiling collateral information from family and PCP(Dr. Suero). 9. Patient to participate in milieu activities and groups.
[2017-03-09] MEDS ORDERED: QUEtiapine TAB* 100 MG PO SCH (21:00)
[2017-03-09] MEDS: QUEtiapine TAB* 100 MG PO SCH (21:03)
[2017-03-09] MEDS: Mirtazapine TAB* 15 MG PO SCH (21:03)
[2017-03-10] MEDS: Omeprazole CAP* 20 MG PO SCH (08:28)
[2017-03-10] MEDS: Famotidine TAB* 20 MG PO SCH (08:28)
[2017-03-10] MEDS: Venlafaxine EXT RELEASE CAP* 37.5 MG PO SCH (08:29)
[2017-03-10] MEDS: Vitamin THERAPEUTIC TAB PO SCH (08:29)
[2017-03-10] MEDS: Nicotine GUM* 2 MG PO PRN ×3 (08:31→16:57)
--- NOTE | 2017-03-10 14:56 | PN ---
Subjective - Subjective Service Type: 36442 Hosp care 15 min low complexity Subjective: Patient reports being up for yoga this morning. He reports noticing return of chest discomfort and sense of SOB during this exertion. He reports noting his HR rising and reports it >100bpm on self- measurement. Patient reports going back to his room to lay down and reports he felt better around lunchtime. Patient noted to be visible in the milieu in the afternoon and evening for milieu activities. He was encouraged to participate in all groups and be social/active in milieu activities. Patient reports his father suffered with a lung disease, which was worked up as cardiac, and later noted to be pulmonary. He reports concern his issues may be pulmonary in etiology. Patient is amenable to Cxr, D-dimer, ESR, CRP, JEFFERY exams to look for pulmonary issues including autoimmune, clotting, infectious/inflammatory in nature. He is also amenable to KUB for r/o of structural issues in his abdomen which may be contributing to his SOB and chest pain. Objective - Appearance Appearance: Thin Framed Dysmorphic Features: No Hygiene: Normal Grooming: Well Kept - Behavior Psychomotor Activities: Normal Exhibits Abnormal Movement: No - Attitude and Relatedness Attitude and Relatedness: Cooperative Eye Contact: Good - Speech Quality: Unpressured Latencies: Normal Quantity: Appropriate - Mood Patient's Decription of Mood: "Anxious" - Affect Observed Affect: Tense Affect Consistent with: Dysphoria - Thought Process Patient's Thought Process: Coherent Thought Content: No Passive Wish, No Suicidal Planning, No Homicidal Ideation, No Paranoid Ideation - Sensorium Experiencing Hallucinations: No, Sensorium is Clear Type of Hallucinations: Visual: No, Auditory: No, Command: No - Level of Consciousness Level of Consciousness: Alert Orientation: Yes Intact, Yes Orientated to Time, Yes Orientated to Place, Yes Orientated to Person - Impulse Control Impulse Control: Intact - Insight and Judgement Insight and Judgement: Fair - Group Participation Particating in Group Activities: Yes - Medication Management Medication Management Adherence: Yes Assessment - Assessment Merits Inpatient Hospitalization: For Immediate Safety, For Stabilization Inpatient DSM-IV Dx: 1. Somatic symptom d/o, with predominant pain, severe. 2. Agoraphobia. 3. MYLES. 4. Social Anxiety d/o Plan - Plan Treatment Plan: Name: JOANNE BILLS Birthdate: 1965 [id number] PLAN: ------ 1. Continue admission to [facility] for safety and symptom mx. 2. Will continue Seroquel at lower dose of 150mg po qhs for nighttime anxiety/ insomnia. Plan to taper off Seroquel as this med has been associated with multiple recent cardiovascular issues. Slow taper schedule of 50mg q2week discussed with patient to assure no discontinuation syndrome issues. 3. Continue Effexor XR at 37.5mg po qam for anxiety issues with plan to uptitrate. 4. Continue Remeron 7.5mg po qhs for nighttime anxiety/ insomnia. 5. Nutrition consulted to develop diet to help increase patient's po intake. 6. Patient encouraged to ensure proper po fluid intake. 7. Will sidebar with hospitalist regarding eval of abdomen/renal/pulmonary etiology of patient's pain. 8. Continue compiling collateral information from family and PCP(Dr. Suero). 9. Patient to participate in milieu activities and groups. Continued Medication Management: Different Medication Medications: Current Medications Acetaminophen (Tylenol Tab*) 650 mg PO Q4H PRN PRN Reason: PAIN or TEMP > 101 F Al Hydrox/Mg Hydrox/Simethicone (Maalox Plus*) 30 ml PO Q4H PRN PRN Reason: INDIGESTION Famotidine (Pepcid Tab*) 40 mg PO DAILY [facility] Last Admin: 03/10/17 08:28 Dose: 40 mg Mirtazapine (Remeron Tab*) 7.5 mg PO BEDTIME [facility] Last Admin: 03/09/17 21:03 Dose: 7.5 mg Multivitamins (Theragran Tab*) 1 tab PO DAILY [facility] Last Admin: 03/10/17 08:29 Dose: 1 tab Nicotine Polacrilex (Nicotine Gum*) 2 mg PO Q2H PRN PRN Reason: CRAVING Last Admin: 03/10/17 12:08 Dose: 2 mg Omeprazole (Prilosec Cap*) 20 mg PO DAILY@0730 [facility] Last Admin: 03/10/17 08:28 Dose: 20 mg Quetiapine Fumarate (Seroquel Tab*) 150 mg PO BEDTIME [facility] Last Admin: 03/09/17 21:03 Dose: 150 mg Venlafaxine HCl (Effexor Xr Cap*) 37.5 mg PO QAM [facility] Last Admin: 03/10/17 08:29 Dose: 37.5 mg - Discharge Plan Discharge Plan: Outpatient Follow Up Outpatient Program: [facility]
[2017-03-10] MEDS: QUEtiapine TAB* 100 MG PO SCH (21:42)
[2017-03-10] MEDS: Mirtazapine TAB* 15 MG PO SCH (21:43)
[2017-03-10] MEDS: Acetaminophen TAB* 325 MG PO PRN (21:47)
--- NOTE | 2017-03-11 08:21 | RAD ---
INDICATION: Chest pain and pressure for several months. Shortness of breath. COMPARISON: February 28, 2017 chest radiograph. TECHNIQUE: Dual energy PA and routine lateral views of the chest were obtained. Supine abdomen radiograph. REPORT: Elevated lung volumes and both diffuse mild prominence of the interstitial markings and patchy rarefaction of the mid to upper lung zone interstitial markings. The heart, pulmonary vasculature, and mediastinal contours are unremarkable. Pectus excavatum deformity noted. Negative for free air beneath the diaphragm on the upright chest views. Large volume of stool present throughout the colon without significant rectal distention with stool. Negative for dilated bowel loops. Negative for suspicious calcifications or mass effect. IMPRESSION: 1. Stigmata of probable chronic obstructive pulmonary disease and emphysema without evidence for an acute cardiopulmonary process. 2. Large volume of stool throughout the colon without additional radiographic finding on the abdomen views.
[2017-03-11] MEDS: Famotidine TAB* 20 MG PO SCH (08:37)
[2017-03-11] MEDS: Vitamin THERAPEUTIC TAB PO SCH (08:37)
[2017-03-11] MEDS: Omeprazole CAP* 20 MG PO SCH (08:37)
[2017-03-11] MEDS: Venlafaxine EXT RELEASE CAP* 37.5 MG PO SCH (08:38)
[2017-03-11] MEDS: Nicotine GUM* 2 MG PO PRN ×3 (08:41→19:15)
--- NOTE | 2017-03-11 11:38 | PN ---
[facility]: Group Therapy Note - Service Type Service Type: 14166 Group Psychotherapy - Cognitive Behavioral Group Therapy ( CBT):Patient was attentive and participatory in CBT programming this morning, and remained in good behavioral control. Patient expressed positive insights regarding relevant treatment interventions and goals.
[2017-03-11] MEDS: QUEtiapine TAB* 100 MG PO SCH (21:06)
[2017-03-11] MEDS: Mirtazapine TAB* 15 MG PO SCH (21:07)
--- NOTE | 2017-03-12 07:19 | PN ---
Subjective - Subjective Service Type: 65097 Hosp care 15 min low complexity - NOTE for 03/11/17 Encounter Subjective: Patient noted to be more visible in the milieu. Patient participating in groups and noted to be social with select peers. Patient reports med compliance and denies med s/e's on current regimen. Patient reports fair sleep and appetite. Patient does report ongoing significant anxiety. He reports experiencing SOB which woke him out of his sleep. He reports it took 30minutes to return to sleep. He also reports again today experiencing chest discomfort and sensation of SOB with light exertion. Patient informed of CXR, KUB, JEFFERY, CRP, ESR, and D-dimer results. He was informed JEFFERY is pending. CRP, ESR, and D-dimer results were wnl. Patient informed KUB noted only signs of constipation. He is amenable to initiation of Colace. Patient informed Cxr showed signs of COPD. Patient endorses smoking 1ppd since age 20yo. He reports quitting in 06/2016. Patient informed hospitalist would be consulted for mx of COPD symptoms. Patient denies SI/HI and AH/VH. Objective - Appearance Appearance: Thin Framed Dysmorphic Features: No Hygiene: Normal Grooming: Fairly Well Kept - Behavior Psychomotor Activities: Normal Exhibits Abnormal Movement: No - Attitude and Relatedness Attitude and Relatedness: Cooperative Eye Contact: Good - Speech Quality: Unpressured Latencies: Normal Quantity: Appropriate - Mood Patient's Decription of Mood: "Anxious" - Affect Observed Affect: Depressed Affect Consistent with: Dysphoria - Thought Process Patient's Thought Process: Coherent Thought Content: No Passive Wish, No Suicidal Planning, No Homicidal Ideation, No Paranoid Ideation - Sensorium Experiencing Hallucinations: No, Sensorium is Clear Type of Hallucinations: Visual: No, Auditory: No, Command: No - Level of Consciousness Level of Consciousness: Alert Orientation: Yes Intact, Yes Orientated to Time, Yes Orientated to Place, Yes Orientated to Person - Impulse Control Impulse Control: Intact - Insight and Judgement Insight and Judgement: Fair - Group Participation Particating in Group Activities: Yes - Medication Management Medication Management Adherence: Yes Assessment - Assessment Merits Inpatient Hospitalization: For Immediate Safety, For Stabilization Inpatient DSM-IV Dx: 1. Somatic symptom d/o, with predominant pain, severe (new COPD dx). 2. Agoraphobia. 3. MYLES. 4. Social Anxiety d/o Plan - Plan Treatment Plan: Name: JOANNE BILLS Birthdate: 1965 [id number] PLAN: ------ 1. Continue admission to [facility] for safety and symptom mx. 2. Will continue Seroquel at lower dose of 150mg po qhs for nighttime anxiety/ insomnia. Plan to taper off Seroquel, via slow taper schedule of 50mg q2week discussed with patient to assure no discontinuation syndrome issues. 3. Patient informed of CXR, KUB, JEFFERY, CRP, ESR, and D-dimer results. He was informed JEFFERY ordered is pending. CRP, ESR, and D-dimer results were wnl. Patient informed KUB noted only signs of constipation. He is amenable to initiation of Colace. Patient informed Cxr showed signs of COPD. Patient endorses smoking 1ppd since age 20yo, quitting in 06/2016. He was informed hospitalist would be consulted for COPD symptom eval and treat. 4. Consult to hospitalist discontinued as Dr. Suero, patient's PCP, would have been consulted. Dr. Suero side-barred and recommended patient be started on Ipratropium bromide inh 2 puff BID for COPD symptoms. 5. Will start Colace 100mg po daily for constipation. 6. Continue Effexor XR at 37.5mg po qam for anxiety issues with plan to uptitrate. 7. Continue Remeron 7.5mg po qhs for nighttime anxiety/ insomnia. 8. Nutrition consulted to develop diet to help increase patient's po intake. 9. Patient encouraged to ensure proper po fluid intake. 10. Collateral information from PCP(Dr. Suero) obtained. 11. Patient to participate in milieu activities and groups. Continued Medication Management: Different Medication Medications: Current Medications Acetaminophen (Tylenol Tab*) 650 mg PO Q4H PRN PRN Reason: PAIN or TEMP > 101 F Last Admin: 03/10/17 21:47 Dose: 650 mg Al Hydrox/Mg Hydrox/Simethicone (Maalox Plus*) 30 ml PO Q4H PRN PRN Reason: INDIGESTION Device (Tiotropium Inhaler Device*) 1 each INH 0900 ONE Stop: 03/12/17 09:01 Famotidine (Pepcid Tab*) 40 mg PO DAILY [facility] Last Admin: 03/11/17 08:37 Dose: 40 mg Mirtazapine (Remeron Tab*) 7.5 mg PO BEDTIME [facility] Last Admin: 03/11/17 21:07 Dose: 7.5 mg Multivitamins (Theragran Tab*) 1 tab PO DAILY [facility] Last Admin: 03/11/17 08:37 Dose: 1 tab Nicotine Polacrilex (Nicotine Gum*) 2 mg PO Q2H PRN PRN Reason: CRAVING Last Admin: 03/11/17 19:15 Dose: 2 mg Omeprazole (Prilosec Cap*) 20 mg PO DAILY@0730 [facility] Last Admin: 03/11/17 08:37 Dose: 20 mg Quetiapine Fumarate (Seroquel Tab*) 150 mg PO BEDTIME [facility] Last Admin: 03/11/17 21:06 Dose: 150 mg Tiotropium [place] (Spiriva Cap.Inh*) 1 cap INH DAILY [facility] Venlafaxine HCl (Effexor Xr Cap*) 37.5 mg PO QAM [facility] Last Admin: 03/11/17 08:38 Dose: 37.5 mg - Discharge Plan Discharge Plan: Outpatient Follow Up Outpatient Program: [facility]
[2017-03-12] MEDS: Famotidine TAB* 20 MG PO SCH (08:29)
[2017-03-12] MEDS: Omeprazole CAP* 20 MG PO SCH (08:30)
[2017-03-12] MEDS: Vitamin THERAPEUTIC TAB PO SCH (08:30)
[2017-03-12] MEDS: Nicotine GUM* 2 MG PO PRN ×3 (08:30→19:05)
[2017-03-12] MEDS ORDERED: Spiriva Inhaler DEVICE* 1 EACH DEVICE INH ONE (09:00)
[2017-03-12] MEDS: Venlafaxine EXT RELEASE CAP* 37.5 MG PO SCH (09:17)
[2017-03-12] MEDS: Docusate CAP* 100 MG PO SCH (10:14)
[2017-03-12] MEDS: Tiotropium CAP.INH* CAP.INH/18 MCG INH SCH (11:37)
[2017-03-12] MEDS: QUEtiapine TAB* 100 MG PO SCH (20:54)
[2017-03-12] MEDS: Mirtazapine TAB* 15 MG PO SCH (20:55)
[2017-03-13] MEDS: Nicotine GUM* 2 MG PO PRN ×5 (06:20→20:17)
[2017-03-13] MEDS: Tiotropium CAP.INH* CAP.INH/18 MCG INH SCH (09:25)
[2017-03-13] MEDS: Famotidine TAB* 20 MG PO SCH (09:27)
[2017-03-13] MEDS: Docusate CAP* 100 MG PO SCH (09:27)
[2017-03-13] MEDS: Omeprazole CAP* 20 MG PO SCH (09:27)
[2017-03-13] MEDS: Venlafaxine EXT RELEASE CAP* 37.5 MG PO SCH (09:27)
[2017-03-13] MEDS: Vitamin THERAPEUTIC TAB PO SCH (09:27)
--- NOTE | 2017-03-13 13:09 | PN ---
Subjective - Subjective Service Type: 73325 Hosp care 15 min low complexity Subjective: Patient more visible in the milieu but isolated and less social. Patient was informed of dx of COPD. He has been noted crying over weekend. Staff reports he attends groups. Patient reports his mood has "dropped". He denies SI/HI. Patient reports fair sleep and appetite. Objective - Appearance Appearance: Thin Framed Dysmorphic Features: No Hygiene: Normal Grooming: Fairly Well Kept - Behavior Psychomotor Activities: Normal Exhibits Abnormal Movement: No - Attitude and Relatedness Attitude and Relatedness: Cooperative Eye Contact: Fair - Speech Quality: Unpressured Latencies: Normal Quantity: Terse - Mood Patient's Decription of Mood: "Anxious" - Affect Observed Affect: Depressed Affect Consistent with: Dysphoria - Thought Process Patient's Thought Process: Coherent Thought Content: No Passive Wish, No Suicidal Planning, No Homicidal Ideation - Sensorium Experiencing Hallucinations: No, Sensorium is Clear Type of Hallucinations: Visual: No, Auditory: No, Command: No - Level of Consciousness Level of Consciousness: Alert Orientation: Yes Intact, Yes Orientated to Time, Yes Orientated to Place, Yes Orientated to Person - Impulse Control Impulse Control: Intact - Insight and Judgement Insight and Judgement: Fair - Group Participation Particating in Group Activities: Yes - Medication Management Medication Management Adherence: Yes Assessment - Assessment Merits Inpatient Hospitalization: For Immediate Safety, For Stabilization Inpatient DSM-IV Dx: 1. Somatic symptom d/o, with predominant pain, severe (new COPD dx). 2. Agoraphobia. 3. MYLES. 4. Social Anxiety d/o Plan - Plan Treatment Plan: Name: JOANNE BILLS Birthdate: 1965 [id number] PLAN: ------ 1. Continue admission to [facility] for safety and symptom mx. 2. Will continue Seroquel at lower dose of 150mg po qhs for nighttime anxiety/ insomnia. Plan to taper off Seroquel, via slow taper schedule of 50mg q2week discussed with patient to assure no discontinuation syndrome issues. 3. Patient informed of CXR, KUB, JEFFERY, CRP, ESR, and D-dimer results. He was informed JEFFERY ordered is pending. CRP, ESR, and D-dimer results were wnl. Patient informed KUB noted only signs of constipation. He is amenable to initiation of Colace. Patient informed Cxr showed signs of COPD. Patient endorses smoking 1ppd since age 20yo, quitting in 06/2016. He was informed hospitalist would be consulted for COPD symptom eval and treat. 4. Consult to hospitalist discontinued as Dr. Suero, patient's PCP, would have been consulted. Dr. Suero side-barred and recommended patient be started on Ipratropium bromide inh 2 puff BID for COPD symptoms. 5. continue Colace 100mg po daily for constipation. 6. Continue Effexor XR at 37.5mg po qam for anxiety issues with plan to uptitrate. 7. Continue Remeron 7.5mg po qhs for nighttime anxiety/ insomnia. 8. Nutrition consulted to develop diet to help increase patient's po intake. 9. Patient encouraged to ensure proper po fluid intake. 10. Collateral information from PCP(Dr. Suero) obtained. 11. Patient to participate in milieu activities and groups. Medications: Current Medications Acetaminophen (Tylenol Tab*) 650 mg PO Q4H PRN PRN Reason: PAIN or TEMP > 101 F Last Admin: 03/10/17 21:47 Dose: 650 mg Al Hydrox/Mg Hydrox/Simethicone (Maalox Plus*) 30 ml PO Q4H PRN PRN Reason: INDIGESTION Docusate Sodium (Colace Cap*) 100 mg PO DAILY [facility] Last Admin: 03/13/17 09:27 Dose: 100 mg Famotidine (Pepcid Tab*) 40 mg PO DAILY [facility] Last Admin: 03/13/17 09:27 Dose: 40 mg Mirtazapine (Remeron Tab*) 7.5 mg PO BEDTIME [facility] Last Admin: 03/12/17 20:55 Dose: 7.5 mg Multivitamins (Theragran Tab*) 1 tab PO DAILY [facility] Last Admin: 03/13/17 09:27 Dose: 1 tab Nicotine Polacrilex (Nicotine Gum*) 2 mg PO Q2H PRN PRN Reason: CRAVING Last Admin: 03/13/17 10:34 Dose: 2 mg Omeprazole (Prilosec Cap*) 20 mg PO DAILY@0730 [facility] Last Admin: 03/13/17 09:27 Dose: 20 mg Quetiapine Fumarate (Seroquel Tab*) 150 mg PO BEDTIME [facility] Last Admin: 03/12/17 20:54 Dose: 150 mg Tiotropium [place] (Spiriva Cap.Inh*) 1 cap INH DAILY [facility] Last Admin: 03/13/17 09:25 Dose: 1 inh Venlafaxine HCl (Effexor Xr Cap*) 37.5 mg PO QAM [facility] Last Admin: 03/13/17 09:27 Dose: 37.5 mg - Discharge Plan Discharge Plan: Outpatient Follow Up
[2017-03-13] MEDS: QUEtiapine TAB* 100 MG PO SCH (20:14)
[2017-03-13] MEDS: Mirtazapine TAB* 15 MG PO SCH (20:15)
--- NOTE | 2017-03-14 08:37 | PN ---
Subjective - Subjective Reason for Note: Consultation Note History: Magno Bills is a primary care patient. He is disabled by a severe anxiety disorder with agoraphobia. He has had a complete work up previously for different somatic symptoms of chest pressure/pain/problems with breathing. He stopped smoking last year. He started spiriva during this hospital stay in the [facility], where he is having inpatient adjustment of his psychopharmacology. He notices some improvement in his breathing. He has no cough/sputum. He has had no chest pain, palpitations or edema. Current Medications: Current Medications Acetaminophen (Tylenol Tab*) 650 mg PO Q4H PRN PRN Reason: PAIN or TEMP > 101 F Last Admin: 03/10/17 21:47 Dose: 650 mg Al Hydrox/Mg Hydrox/Simethicone (Maalox Plus*) 30 ml PO Q4H PRN PRN Reason: INDIGESTION Docusate Sodium (Colace Cap*) 100 mg PO DAILY [facility] Last Admin: 03/13/17 09:27 Dose: 100 mg Famotidine (Pepcid Tab*) 40 mg PO DAILY [facility] Last Admin: 03/13/17 09:27 Dose: 40 mg Mirtazapine (Remeron Tab*) 7.5 mg PO BEDTIME [facility] Last Admin: 03/13/17 20:15 Dose: 7.5 mg Multivitamins (Theragran Tab*) 1 tab PO DAILY [facility] Last Admin: 03/13/17 09:27 Dose: 1 tab Nicotine Polacrilex (Nicotine Gum*) 2 mg PO Q2H PRN PRN Reason: CRAVING Last Admin: 03/13/17 20:17 Dose: 2 mg Omeprazole (Prilosec Cap*) 20 mg PO DAILY@0730 [facility] Last Admin: 03/13/17 09:27 Dose: 20 mg Quetiapine Fumarate (Seroquel Tab*) 150 mg PO BEDTIME [facility] Last Admin: 03/13/17 20:14 Dose: 150 mg Tiotropium [place] (Spiriva Cap.Inh*) 1 cap INH DAILY [facility] Last Admin: 03/13/17 09:25 Dose: 1 inh Venlafaxine HCl (Effexor Xr Cap*) 37.5 mg PO QAM [facility] Last Admin: 03/13/17 09:27 Dose: 37.5 mg Home Medications: Home Medications Medication Instructions Recorded Confirmed Type Ranitidine HCl 300 mg PO DAILY 04/23/14 03/09/17 History Lansoprazole [Prevacid] 30 mg PO DAILY 03/09/17 03/09/17 History QUEtiapine TAB* [SEROquel TAB*] 200 mg PO BEDTIME 03/09/17 03/09/17 History Allergies: Allergies Allergy/AdvReac Type Severity Reaction Status Date / Time Shellfish Allergy Allergy Unknown Verified 03/09/17 14:55 Reaction Details Objective - Vital Signs Vital Signs: Vital Signs 03/13/17 03/14/17 22:17 07:44 Temperature 98.6 F Pulse Rate 77 Respiratory 19 16 Rate Blood Pressure 103/67 (mmHg) O2 Sat by Pulse 100 Oximetry - Intake and Output Intake and Output: ADLs: Meal Record Start: 03/09/17 06: 15 Freq: Status: Active Created 03/09/17 06:15 System (Rec: 03/09/17 06:15 System [id number]) - Physical Exam General: No Cyanosis, No Anemia, No Jaundice, No Clubbing Skin: Normal: Rash Lungs and Chest: Yes: Chest Expansion Full, Chest Expansion Symetrica, Percussion Note Resonant, Vessicular Breath Sounds. No: Crackles, Wheezes, Respiratory Distress, Use of Accessory Muscles Heart Rate and Rhythm: Regular JVP: Not Elevated Additional Cardiovascular: Yes: Normal Heart Sounds. No: Heart Murmur, Carotid Bruits, Pedal Edema Abdominal Exam: Yes: Soft. No: Distention, Abdominal Mass, Abdominal Tenderness Results - Results Radiology Results: Patient Name: MAGNO BILLS Medical Record#: [id number] Ordering Physician: Adan Mac MD Acct.#: [id number] : 1965 Age: 51 Sex: M Location: [facility] Exam Date: 03/11/17 0900 ADM Status: ADM IN Order Information: CHEST PA & LAT 2 VWS Accession Number: [id number] CPT: 78157 INDICATION: Chest pain and pressure for several months. Shortness of breath. COMPARISON: February 28, 2017 chest radiograph. TECHNIQUE: Dual energy PA and routine lateral views of the chest were obtained. Supine abdomen radiograph. REPORT: Elevated lung volumes and both diffuse mild prominence of the interstitial markings and patchy rarefaction of the mid to upper lung zone interstitial markings. The heart, pulmonary vasculature, and mediastinal contours are unremarkable. Pectus excavatum deformity noted. Negative for free air beneath the diaphragm on the upright chest views. Large volume of stool present throughout the colon without significant rectal distention with stool. Negative for dilated bowel loops. Negative for suspicious calcifications or mass effect. IMPRESSION: 1. Stigmata of probable chronic obstructive pulmonary disease and emphysema without evidence for an acute cardiopulmonary process. 2. Large volume of stool throughout the colon without additional radiographic finding on the abdomen views. <Electronically signed by Angus Epps MD in OV> 03/11/17816 Dictated By: Angus Epps MD Dictated Date/Time: 03/11/17816 Transcribed Date/Time: 03/11/17813 Copy to: CC:Maxwell Suero MD; Adan Mac MD; Colby Rolon MD Imaging - [facility] Imaging - [facility] Imaging - [facility] [address] [address] ph ([phone]) ph ([phone]) ph ([phone]) Assessment - Problem List Assessment: Patient Problems Anxiety disorder (Acute) Chronic GERD (Acute) Former smoker (Acute) Palpitations (Acute) Plan: COPD - I think this is reasonable controlled with spiriva - I suggested avoiding an adrenoceptor agonist as this might increase his anxiety. His O2 saturations have been normal on room air. He asks about the need for supplemental O2 - he has no requirement for this. I reviewed his cardiac work up - I think he has a low risk. Clearly, his anxiety disorder is tied up with worries about his health and somatic representations of anxiety. I will follow up his COPD as an outpatient and consider PFTs at that time. Anxiety disorder - I am grateful to see his psychopharmacology is now being changed. He has had some insomnia and this may continue to be an issue when he is stabilized on venlafaxine. I hope that this can be watched by the [facility] after discharge. I discussed the above with the patient and we agreed to follow up at his existing outpatient appt in around 1 week from now.
[2017-03-14] MEDS: Tiotropium CAP.INH* CAP.INH/18 MCG INH SCH (09:07)
[2017-03-14] MEDS: Omeprazole CAP* 20 MG PO SCH (09:07)
[2017-03-14] MEDS: Nicotine GUM* 2 MG PO PRN ×4 (09:07→21:37)
[2017-03-14] MEDS: Venlafaxine EXT RELEASE CAP* 37.5 MG PO SCH (09:07)
[2017-03-14] MEDS: Famotidine TAB* 20 MG PO SCH (09:07)
[2017-03-14] MEDS: Vitamin THERAPEUTIC TAB PO SCH (09:07)
[2017-03-14] MEDS: Docusate CAP* 100 MG PO SCH (09:07)
[2017-03-14] MEDS: Acetaminophen TAB* 325 MG PO PRN (17:55)
[2017-03-14] MEDS: QUEtiapine TAB* 100 MG PO SCH (21:35)
[2017-03-14] MEDS: Mirtazapine TAB* 15 MG PO SCH (21:35)
--- NOTE | 2017-03-15 06:00 | PN ---
Subjective - Subjective Service Type: 39028 Hosp care 15 min low complexity - NOTE for 03/14/17 Encounter Subjective: Patient noted to be visible in the milieu. Patient noted to be sullen and tearful over the weekend triggered by his dx COPD. Patient reports being seen by Dr. Suero this morning and reports benefit to sensation of air hunger since starting Spiriva. Patient reports he has not benefitted from Mirtazepine for sleep. He requests a new med for insomnia. Patient reports he is wrapping his head around his COPD dx. He expresses insight that he and his dad's lung conditions are equal and that he immediately tied their dx and prognosis together. Patient denies SI/HI and AH/VH. Appetite is fair. Objective - Appearance Appearance: Thin Framed Dysmorphic Features: No Hygiene: Normal Grooming: Fairly Well Kept - Behavior Psychomotor Activities: Normal Exhibits Abnormal Movement: No - Attitude and Relatedness Attitude and Relatedness: Cooperative Eye Contact: Good - Speech Quality: Unpressured Latencies: Normal Quantity: Appropriate - Mood Patient's Decription of Mood: "Anxious" - Affect Observed Affect: Tense Affect Consistent with: Dysphoria - Thought Process Patient's Thought Process: Coherent Thought Content: No Passive Wish, No Suicidal Planning, No Homicidal Ideation, No Paranoid Ideation - Sensorium Experiencing Hallucinations: No, Sensorium is Clear Type of Hallucinations: Visual: No, Auditory: No, Command: No - Level of Consciousness Level of Consciousness: Alert Orientation: Yes Intact, Yes Orientated to Time, Yes Orientated to Place, Yes Orientated to Person - Impulse Control Impulse Control: Intact - Insight and Judgement Insight and Judgement: Fair - Group Participation Particating in Group Activities: Yes - Medication Management Medication Management Adherence: Yes Assessment - Assessment Merits Inpatient Hospitalization: For Immediate Safety, For Stabilization Inpatient DSM-IV Dx: 1. Illness Anxiety d/o. 2. Agoraphobia. 3. MYLES. 4. Social Anxiety d/o Plan - Plan Treatment Plan: Name: JOANNE BILLS Birthdate: 1965 [id number] PLAN: ------ 1. Continue admission to [facility] for safety and symptom mx. 2. Will continue Seroquel at lower dose of 150mg po qhs for nighttime anxiety/ insomnia. Plan to taper off Seroquel, via slow taper schedule of 50mg q2week discussed with patient to assure no discontinuation syndrome issues. 3. Patient informed of CXR, KUB, JEFFERY, CRP, ESR, and D-dimer results. He was informed JEFFERY ordered is pending. CRP, ESR, and D-dimer results were wnl. Patient informed KUB noted only signs of constipation. He is amenable to initiation of Colace. Patient informed Cxr showed signs of COPD. Patient endorses smoking 1ppd since age 20yo, quitting in 06/2016. He was informed hospitalist would be consulted for COPD symptom eval and treat. 4. Consult to hospitalist discontinued as Dr. Suero, patient's PCP, would have been consulted. Dr. Suero side-barred and recommended patient be started on Ipratropium bromide inh 2 puff BID for COPD symptoms. 5. Continue Colace 100mg po daily for constipation. 6. Continue Effexor XR at 37.5mg po qam for anxiety issues with plan to uptitrate. 7. D/C Remeron due to ineffectiveness. 8. Patient gives informed consent to start Trazodone 50mg po qhs for insomnia. 8. Nutrition consulted to develop diet to help increase patient's po intake. 9. Patient encouraged to ensure proper po fluid intake. 10. Collateral information from PCP(Dr. Suero) obtained. 11. Patient to participate in milieu activities and groups. Medications: Current Medications Acetaminophen (Tylenol Tab*) 650 mg PO Q4H PRN PRN Reason: PAIN or TEMP > 101 F Last Admin: 03/14/17 17:55 Dose: 650 mg Al Hydrox/Mg Hydrox/Simethicone (Maalox Plus*) 30 ml PO Q4H PRN PRN Reason: INDIGESTION Docusate Sodium (Colace Cap*) 100 mg PO DAILY [facility] Last Admin: 03/14/17 09:07 Dose: 100 mg Famotidine (Pepcid Tab*) 40 mg PO DAILY [facility] Last Admin: 03/14/17 09:07 Dose: 40 mg Multivitamins (Theragran Tab*) 1 tab PO DAILY [facility] Last Admin: 03/14/17 09:07 Dose: 1 tab Nicotine Polacrilex (Nicotine Gum*) 2 mg PO Q2H PRN PRN Reason: CRAVING Last Admin: 03/14/17 21:37 Dose: 2 mg Omeprazole (Prilosec Cap*) 20 mg PO DAILY@0730 [facility] Last Admin: 03/14/17 09:07 Dose: 20 mg Quetiapine Fumarate (Seroquel Tab*) 150 mg PO BEDTIME [facility] Last Admin: 03/14/17 21:35 Dose: 150 mg Tiotropium [place] (Spiriva Cap.Inh*) 1 cap INH DAILY [facility] Last Admin: 03/14/17 09:07 Dose: 1 inh Trazodone HCl (Desyrel Tab*) 50 mg PO BEDTIME [facility] Venlafaxine HCl (Effexor Xr Cap*) 37.5 mg PO QAM [facility] Last Admin: 03/14/17 09:07 Dose: 37.5 mg - Discharge Plan Discharge Plan: Outpatient Follow Up
[2017-03-15] MEDS: Docusate CAP* 100 MG PO SCH (08:43)
[2017-03-15] MEDS: Famotidine TAB* 20 MG PO SCH (08:43)
[2017-03-15] MEDS: Vitamin THERAPEUTIC TAB PO SCH (08:43)
[2017-03-15] MEDS: Omeprazole CAP* 20 MG PO SCH (08:43)
[2017-03-15] MEDS: Tiotropium CAP.INH* CAP.INH/18 MCG INH SCH (08:44)
[2017-03-15] MEDS: Venlafaxine EXT RELEASE CAP* 37.5 MG PO SCH (08:44)
[2017-03-15] MEDS: Nicotine GUM* 2 MG PO PRN ×5 (08:46→21:17)
--- NOTE | 2017-03-15 15:29 | PN ---
Subjective - Subjective Service Type: 94818 Hosp care 15 min low complexity Subjective: Patient reports good sleep last night. Again reporting his body getting used to Effexor may have been the issue. Patient reports improved mood with sleep. Patient reports he is processing the new dx. Patient reports he feels ready for discharge tomorrow. Patient denies SI/HI and AH/VH. Objective - Appearance Appearance: Thin Framed Dysmorphic Features: No Hygiene: Normal Grooming: Well Kept - Behavior Psychomotor Activities: Normal Exhibits Abnormal Movement: No - Attitude and Relatedness Attitude and Relatedness: Cooperative Eye Contact: Fair - Speech Quality: Unpressured Latencies: Normal Quantity: Appropriate - Mood Patient's Decription of Mood: "Okay" - Affect Observed Affect: Fair Affect Consistent with: Euthymia - Thought Process Patient's Thought Process: Coherent Thought Content: No Passive Wish, No Suicidal Planning, No Homicidal Ideation, No Paranoid Ideation - Sensorium Experiencing Hallucinations: No, Sensorium is Clear Type of Hallucinations: Visual: No, Auditory: No, Command: No - Level of Consciousness Level of Consciousness: Alert Orientation: Yes Intact, Yes Orientated to Time, Yes Orientated to Place, Yes Orientated to Person - Impulse Control Impulse Control: Intact - Insight and Judgement Insight and Judgement: Fair - Group Participation Particating in Group Activities: Yes - Medication Management Medication Management Adherence: Yes Assessment - Assessment Merits Inpatient Hospitalization: For Immediate Safety, For Stabilization Inpatient DSM-IV Dx: 1. Illness Anxiety d/o. 2. Agoraphobia. 3. MYLES. 4. Social Anxiety d/o Plan - Plan Treatment Plan: Name: JOANNE BILLS Birthdate: 1965 [id number] PLAN: ------ 1. Continue admission to [facility] for safety and symptom mx. 2. Will continue Seroquel at lower dose of 150mg po qhs for nighttime anxiety/ insomnia. Plan to taper off Seroquel, via slow taper schedule of 50mg q2week discussed with patient to assure no discontinuation syndrome issues. 3. Patient informed of CXR, KUB, JEFFERY, CRP, ESR, and D-dimer results. He was informed JEFFERY ordered is pending. CRP, ESR, and D-dimer results were wnl. Patient informed KUB noted only signs of constipation. He is amenable to initiation of Colace. Patient informed Cxr showed signs of COPD. Patient endorses smoking 1ppd since age 20yo, quitting in 06/2016. He was informed hospitalist would be consulted for COPD symptom eval and treat. 4. Consult to hospitalist discontinued as Dr. Suero, patient's PCP, would have been consulted. Dr. Suero side-barred and recommended patient be started on Ipratropium bromide inh 2 puff BID for COPD symptoms. 5. Continue Colace 100mg po daily for constipation. 6. Continue Effexor XR at 37.5mg po qam for anxiety issues with plan to uptitrate. 7. D/C Remeron due to ineffectiveness. 8. Patient gives informed consent to start Trazodone 50mg po qhs for insomnia. 8. Nutrition consulted to develop diet to help increase patient's po intake. 9. Patient encouraged to ensure proper po fluid intake. 10. Collateral information from PCP(Dr. Suero) obtained. 11. Patient to participate in milieu activities and groups. Medications: Current Medications Acetaminophen (Tylenol Tab*) 650 mg PO Q4H PRN PRN Reason: PAIN or TEMP > 101 F Last Admin: 03/14/17 17:55 Dose: 650 mg Al Hydrox/Mg Hydrox/Simethicone (Maalox Plus*) 30 ml PO Q4H PRN PRN Reason: INDIGESTION Docusate Sodium (Colace Cap*) 100 mg PO DAILY [facility] Last Admin: 03/15/17 08:43 Dose: 100 mg Famotidine (Pepcid Tab*) 40 mg PO DAILY [facility] Last Admin: 03/15/17 08:43 Dose: 40 mg Mirtazapine (Remeron Tab*) 7.5 mg PO BEDTIME [facility] Multivitamins (Theragran Tab*) 1 tab PO DAILY [facility] Last Admin: 03/15/17 08:43 Dose: 1 tab Nicotine Polacrilex (Nicotine Gum*) 2 mg PO Q2H PRN PRN Reason: CRAVING Last Admin: 03/15/17 12:45 Dose: 2 mg Omeprazole (Prilosec Cap*) 20 mg PO DAILY@0730 [facility] Last Admin: 03/15/17 08:43 Dose: 20 mg Quetiapine Fumarate (Seroquel Tab*) 150 mg PO BEDTIME [facility] Last Admin: 03/14/17 21:35 Dose: 150 mg Tiotropium [place] (Spiriva Cap.Inh*) 1 cap INH DAILY [facility] Last Admin: 03/15/17 08:44 Dose: 1 inh Venlafaxine HCl (Effexor Xr Cap*) 37.5 mg PO QAM [facility] Last Admin: 03/15/17 08:44 Dose: 37.5 mg - Discharge Plan Discharge Plan: Outpatient Follow Up Outpatient Program: Private Clinician(s)
[2017-03-15] MEDS ORDERED: Albuterol HFA INHALER* 8 gm MDI INH PRN (18:04)
[2017-03-15] MEDS ORDERED: traZODone TAB* 50 MG TAB PO SCH (21:00)
[2017-03-15] MEDS ORDERED: Mirtazapine TAB* 15 MG PO SCH (21:00)
[2017-03-15] MEDS: QUEtiapine TAB* 100 MG PO SCH (21:16)
[2017-03-16] MEDS: Nicotine GUM* 2 MG PO PRN ×2 (07:38→11:05)
[2017-03-16 08:00] VITALS: BP 113/60
[2017-03-16] MEDS: Vitamin THERAPEUTIC TAB PO SCH (09:03)
[2017-03-16] MEDS: Docusate CAP* 100 MG PO SCH (09:03)
[2017-03-16] MEDS: Omeprazole CAP* 20 MG PO SCH (09:03)
[2017-03-16] MEDS: Famotidine TAB* 20 MG PO SCH (09:04)
[2017-03-16] MEDS: Venlafaxine EXT RELEASE CAP* 37.5 MG PO SCH (09:04)
[2017-03-16] MEDS: Tiotropium CAP.INH* CAP.INH/18 MCG INH SCH (09:04)
--- NOTE | 2017-03-16 12:17 | DS ---
Subjective - Subjective Service Types: 90198 Hosp DC Day Mgmt simple under 30 min Subjective: Patient again noted to be visible in the milieu, participating in groups and [employer] activities. Patient reports med compliance and denies me s/e. Sleep was "good" for 2nd night in a row. Appetite has been improved since admission. He and his brother report decreased anxiety since COPD dx made. Patient reports feeling ready for discharge. Discharge plan was discussed. Patient acknowledges understanding and is amenable. Patient will have an appt with his new psychiatrist Tuesday this week. Patient reports awareness of his community and family supports. He reports understanding that he can call 911, the hotline , or present to his local ED if SI recurs. Patient denies SI/HI and AH/VH. Objective - Appearance Appearance: Thin Framed Dysmorphic Features: No Hygiene: Normal Grooming: Well Kept - Behavior Psychomotor Activities: Normal Exhibits Abnormal Movement: No - Attitude and Relatedness Attitude and Relatedness: Cooperative Eye Contact: Fair - Speech Quality: Unpressured Latencies: Normal Quantity: Terse - Mood Patient's Decription of Mood: "Good" - Affect Observed Affect: Good Affect Consistent with: Euthymia - Thought Process Patient's Thought Process: Coherent Thought Content: No Passive Wish, No Suicidal Planning, No Homicidal Ideation, No Paranoid Ideation - Sensorium Experiencing Hallucinations: Yes Type of Hallucinations: Visual: No, Auditory: No, Command: No - Level of Consciousness Level of Consciousness: Alert Orientation: Yes Intact, Yes Orientated to Time, Yes Orientated to Place, Yes Orientated to Person - Impulse Control Impulse Control: Intact - Insight and Judgement Insight and Judgement: Fair - Group Participation Particating in Group Activities: Yes - Medication Management Medication Management Adherence: Yes Treatment Course & Assessment Clinical Course & Impression: Hospital Course: Patient is a 51yo male with PPHx significant for MYLES, Social Anxiety d/o, and Agoraphobia. Patient presented to the [facility] reporting a now 3rd episode of chest discomfort he describes as a sensation of lack of air. Patient also describes a "heavy pressure on his chest" and a sense of "body tension". Patient reports this episode has persisted for 10 days now. Patient reports over the last 10 days, he has experienced episodes of anxiety attacks that last 30-40 minutes, associated with dry mouth and fatigue which resolves only when he lays down for a while. Patient reports also during the last 10 days he has been monitoring his BP, which is averaging 105-110 systolic over 65-70 diastolic. Patient reports his HR stays around the mid 80's, but he reports he becomes tacchycardic in the 110's with light exertion. Patient reports his mood has declined during this episode, mostly 2/2 concerns for his health. He reports his appetite has dropped by 50%. Patient reports his fluid intake is wnl or increased, as has been drinking more water with each anxiety attack to help with the associated dry mouth. Patient denies recent use of supplements, taking any other Rx meds, meds from friends, or illicit substances. Patient reports no hx of abuse of alcohol, reporting 1-2, 12oz beers on average 2-3 nights per week. Patient reports the 1st of these episodes of chest discomfort started in 10/2016 , prompted by patient's self taper off of Seroquel which he'd been on for > 9years for mx of nighttime anxiety and insomnia. He started the taper without medical supervision in 08/2016 while on 300mg po qhs of Seroquel. Patient reports the taper progressed without issue until 10/2016 when he'd dropped to only ~50mg po qhs. Patient experienced at that point the 1st episode of chest discomfort. He reports he called his PCP, who'd been Rx'ing Seroquel and was told to take immediately 200mg of Seroquel, which patient reports he did. Patient reports after doing so his HR went into the 180's and he presented to the [facility] for workup of CP. Paitient was admitted and the cardiac workup reveals all NEG cardiac studies. Patient reports after discharge he was continued on Seroquel, and Rx 150mg po qhs. He reports the 2nd episode occurred 1.5months later, but did not lead to a hospitalization to workup his CP. Seroquel taper initiated and dose decreased from 200mg to 150mg po qhs for nighttime anxiety/ insomnia. Plan to taper off Seroquel as this med has been associated with multiple recent cardiovascular issues. Slow taper schedule of 50mg q2week discussed with patient to assure no discontinuation syndrome issues. Patient gave informed consent to start Effexor XR at 37.5mg po qam for anxiety issues with plan to uptitrate. Patient gave informed consent to start Remeron 7.5mg po qhs for nighttime anxiety/ insomnia. Nutrition consulted to develop diet to help increase patient's po. Patient encouraged to ensure proper po fluid intake. On admission day 2, Patient reports being up for yoga this morning. He reports noticing return of chest discomfort and sense of SOB during this exertion. He reports noting his HR rising and reports it >100bpm on self- measurement. Patient reports going back to his room to lay down and reports he felt better around lunchtime. Patient noted to be visible in the milieu in the afternoon and evening for milieu activities. He was encouraged to participate in all groups and be social/active in milieu activities. Patient reports his father suffered with a lung disease, which was worked up as cardiac, and later noted to be pulmonary. He reports concern his issues may be pulmonary in etiology. Patient is amenable to Cxr, D-dimer, ESR, CRP, JEFFERY exams to look for pulmonary issues including autoimmune, clotting, infectious/inflammatory in nature. He is also amenable to KUB for r/o of structural issues in his abdomen which may be contributing to his SOB and chest pain. On admission day 3, Patient noted to be more visible in the milieu. Patient participating in groups and noted to be social with select peers. Patient reports med compliance and denies med s/e's on current regimen. Patient reports fair sleep and appetite. Patient does report ongoing significant anxiety. He reports experiencing SOB which woke him out of his sleep. He reports it took 30minutes to return to sleep. He also reports again today experiencing chest discomfort and sensation of SOB with light exertion. Patient informed of CXR, KUB, JEFFERY, CRP, ESR, and D-dimer results. He was informed JEFFERY is pending. CRP, ESR, and D-dimer results were wnl. Patient informed KUB noted only signs of constipation. He is amenable to initiation of Colace. Patient informed Cxr showed signs of COPD. Patient endorses smoking 1ppd since age 20yo. He reports quitting in 06/2016. Patient informed hospitalist would be consulted for mx of COPD symptoms. Patient denied SI/HI and AH/VH. Admission day 4 & 5 were weekend days. On [place], admission day 6, Patient noted to be visible in the milieu. Patient noted to be sullen and tearful over the weekend triggered by his dx COPD. Patient reports being seen by Dr. Suero this morning and reports benefit to sensationof air hunger since starting Spiriva. Patient reports he has not benefitted from Mirtazepine for sleep. He requests a new med for insomnia. Patient reports he is wrapping his head around his COPD dx. He expresses insight that he and his dad's lung conditions are equal and that he immediately tied their dx and prognosis together. Patient denied SI/HI and AH/VH. Appetite was fair. On hospital day 7, patient reported good sleep last night. Again reporting his body getting used to Effexor may have been the issue. Patient reports improved mood with sleep. Patient reports he is processing the new dx. Patient reports he feels ready for discharge tomorrow. Patient denied SI/HI and AH/VH. On day of discharge, patient is A&Ox3, he is linear and GD in TP and is future oriented in TC. Patient reports desire to re-engage in socializing and has mentioned the [facility] as where he will start. He reports desire to participate in groups and social events there. He reports great benefit from this admission and feels "it got the rust off" regarding his social interaction.Patient has not expressed SI/HI since admission. Patient is psychiatrically stable. His brother who he lives in an adjacent apt from, is here to tow picker patient and transport him home at discharge. Patient reports understanding of discharge plan and is amenable to it. Pertinent labs: ABD film - wnl with exception of signs of constipation CXR - noted for significant COPD changes Laboratory Tests 03/09/17 03/09/17 03/09/17 00:31 00:31 00:31 WBC 8.2 RBC 4.36 Hgb 14.5 Hct 43 MCV 98 H MCH 33 H MCHC 34 RDW 13 Plt Count 225 MPV 7 L Neut % (Auto) 60.8 Lymph % (Auto) 25.5 [place] % (Auto) 11.7 H Eos % (Auto) 1.5 Baso % (Auto) 0.5 Absolute Neuts (auto) 5.0 Absolute Lymphs (auto) 2.1 Absolute Monos (auto) 1.0 H Absolute Eos (auto) 0.1 Absolute Basos (auto) 0 Absolute Nucleated RBC 0 Nucleated RBC % 0 ESR D-Dimer, Quantitative Sodium 137 Potassium 3.5 Chloride 104 Carbon Dioxide 26 Anion Gap 7 BUN 18 Creatinine 1.22 H Est GFR ( Amer) 81.2 Est GFR (Non-Af Amer) 63.1 BUN/Creatinine Ratio 14.8 Glucose 104 H Calcium 9.4 Total Bilirubin 0.40 AST 17 ALT 25 Alkaline Phosphatase 90 Troponin I 0.00 C-Reactive Protein Total Protein 7.1 Albumin 4.4 Globulin 2.7 Albumin/Globulin Ratio 1.6 TSH 6.99 H Urine Color Colorless Urine Appearance Clear Urine pH 7.0 Ur Specific [place] 1.003 L Urine Protein Negative Urine Ketones Negative Urine Blood Negative Urine Nitrate Negative Urine Bilirubin Negative Urine Urobilinogen Negative Ur Leukocyte Esterase Negative Urine Glucose Negative Salicylates < 2.50 Urine Opiates Screen Acetaminophen < 15 Ur Barbiturates Screen Ur Phencyclidine Scrn Ur Amphetamines Screen U Benzodiazepines Scrn Urine Cocaine Screen U Cannabinoids Screen Serum Alcohol < 10 Anti-Nuclear Antibody 03/09/17 03/11/17 03/11/17 00:31 07:07 07:07 WBC RBC Hgb Hct MCV MCH MCHC RDW Plt Count MPV Neut % (Auto) Lymph % (Auto) [place] % (Auto) Eos % (Auto) Baso % (Auto) Absolute Neuts (auto) Absolute Lymphs (auto) Absolute Monos (auto) Absolute Eos (auto) Absolute Basos (auto) Absolute Nucleated RBC Nucleated RBC % ESR 10 D-Dimer, Quantitative < 200 Sodium Potassium Chloride Carbon Dioxide Anion Gap BUN Creatinine Est GFR ( Amer) Est GFR (Non-Af Amer) BUN/Creatinine Ratio Glucose Calcium Total Bilirubin AST ALT Alkaline Phosphatase Troponin I C-Reactive Protein Total Protein Albumin Globulin Albumin/Globulin Ratio TSH Urine Color Urine Appearance Urine pH Ur Specific [place] Urine Protein Urine Ketones Urine Blood Urine Nitrate Urine Bilirubin Urine Urobilinogen Ur Leukocyte Esterase Urine Glucose Salicylates Urine Opiates Screen None detected Acetaminophen Ur Barbiturates Screen None detected Ur Phencyclidine Scrn None detected Ur Amphetamines Screen None detected U Benzodiazepines Scrn None detected Urine Cocaine Screen None detected U Cannabinoids Screen None detected Serum Alcohol Anti-Nuclear Antibody 03/11/17 03/11/17 07:07 07:07 WBC RBC Hgb Hct MCV MCH MCHC RDW Plt Count MPV Neut % (Auto) Lymph % (Auto) [place] % (Auto) Eos % (Auto) Baso % (Auto) Absolute Neuts (auto) Absolute Lymphs (auto) Absolute Monos (auto) Absolute Eos (auto) Absolute Basos (auto) Absolute Nucleated RBC Nucleated RBC % ESR D-Dimer, Quantitative Sodium Potassium Chloride Carbon Dioxide Anion Gap BUN Creatinine Est GFR ( Amer) Est GFR (Non-Af Amer) BUN/Creatinine Ratio Glucose Calcium Total Bilirubin AST ALT Alkaline Phosphatase Troponin I C-Reactive Protein 1.51 Total Protein Albumin Globulin Albumin/Globulin Ratio TSH Urine Color Urine Appearance Urine pH Ur Specific [place] Urine Protein Urine Ketones Urine Blood Urine Nitrate Urine Bilirubin Urine Urobilinogen Ur Leukocyte Esterase Urine Glucose Salicylates Urine Opiates Screen Acetaminophen Ur Barbiturates Screen Ur Phencyclidine Scrn Ur Amphetamines Screen U Benzodiazepines Scrn Urine Cocaine Screen U Cannabinoids Screen Serum Alcohol Anti-Nuclear Antibody 1.1 H Consultants: Nutrition Discharge Meds: Home Medications Medication Instructions Recorded Confirmed Type Ranitidine HCl 300 mg PO DAILY 04/23/14 03/09/17 History Albuterol HFA INHALER* [Ventolin 2 puff INH Q6H PRN #1 ea 03/16/17 Rx HFA Inhaler*] Docusate CAP* [Colace Cap*] 100 mg PO DAILY #30 cap 03/16/17 Rx Lansoprazole [Prevacid] 30 mg PO DAILY #30 03/16/17 Rx Mirtazapine TAB* [Remeron TAB*] 7.5 mg PO BEDTIME #60 tab 03/16/17 Rx QUEtiapine TAB* [Seroquel TAB*] 150 mg PO BEDTIME #10 tab 03/16/17 Rx Tiotropium CAP.INH* [Spiriva 1 cap INH DAILY #1 cap.inh 03/16/17 Rx CAP.INH*] Venlafaxine EXT RELEASE CAP* 37.5 mg PO QAM #30 cap.sr 03/16/17 Rx [Effexor Xr CAP*] Vitamin THERAPEUTIC TAB* 1 tab PO DAILY #30 tab 03/16/17 Rx [Theragran TAB*] Follow-up appt: LIZ has scheduled f/u appt with psychiatrist at [facility] for Tuesday Clear for Discharge: Adequate Clinical Respons, Acceptable Safety Profile Inpatient DSM-IV Dx: 1. Illness Anxiety d/o. 2. Agoraphobia. 3. MYLES. 4. Social Anxiety d/o Discharge Planning - Discharge Planning Discharge Plan: Outpatient Follow Up Outpatient Program: [facility] Recommendations for Continuing Care: Medication Management, Primary Care Followup, Specialty Followup Medications: Current Medications Acetaminophen (Tylenol Tab*) 650 mg PO Q4H PRN PRN Reason: PAIN or TEMP > 101 F Last Admin: 03/14/17 17:55 Dose: 650 mg Al Hydrox/Mg Hydrox/Simethicone (Maalox Plus*) 30 ml PO Q4H PRN PRN Reason: INDIGESTION Albuterol (Ventolin Hfa Inhaler*) 2 puff INH Q6H PRN PRN Reason: SOB/WHEEZING Docusate Sodium (Colace Cap*) 100 mg PO DAILY [facility] Last Admin: 03/16/17 09:03 Dose: 100 mg Famotidine (Pepcid Tab*) 40 mg PO DAILY [facility] Last Admin: 03/16/17 09:04 Dose: 40 mg Mirtazapine (Remeron Tab*) 7.5 mg PO BEDTIME [facility] Last Admin: 03/15/17 21:15 Dose: 7.5 mg Multivitamins (Theragran Tab*) 1 tab PO DAILY [facility] Last Admin: 03/16/17 09:03 Dose: 1 tab Nicotine Polacrilex (Nicotine Gum*) 2 mg PO Q2H PRN PRN Reason: CRAVING Last Admin: 03/16/17 11:05 Dose: 2 mg Omeprazole (Prilosec Cap*) 20 mg PO DAILY@0730 [facility] Last Admin: 03/16/17 09:03 Dose: 20 mg Quetiapine Fumarate (Seroquel Tab*) 150 mg PO BEDTIME [facility] Last Admin: 03/15/17 21:16 Dose: 150 mg Tiotropium Waldo (Spiriva Cap.Inh*) 1 cap INH DAILY [facility] Last Admin: 03/16/17 09:04 Dose: 1 inh Venlafaxine HCl (Effexor Xr Cap*) 37.5 mg PO QAM [facility] Last Admin: 03/16/17 09:04 Dose: 37.5 mg Discharge Planning: Prescriptions provided for discharge [x] Yes [] No Follow up care details as per social work arrangements. Patient response to discharge plan: [] eager for discharge [x] agreeable with discharge plan [] ambivalent about discharge [] disagrees with discharge today
== END 2017-03-16 12:35 | disposition home or self-care (01) | DRG 755 ==
LOC: ED 23:55 → BSU 03-09 05:49
PROVIDERS: ADMIT Psychiatry & Neurology Psychiatry; ATTEND Psychiatry & Neurology Psychiatry
PROC: GZHZZZZ Group Psychotherapy (ICD-10-PCS; principal; 2017-03-14)
DX: F45.21 Hypochondriasis (principal); J44.9 Chronic obstructive pulmonary disease, unspecified; F41.1 Generalized anxiety disorder; F41.8 Other specified anxiety disorders; Z91.013 Allergy to seafood; F40.01 Agoraphobia with panic disorder; Z82.49 Family history of ischemic heart disease and other diseases of the circulatory system; Z83.3 Family history of diabetes mellitus; Z82.3 Family history of stroke; Z87.891 Personal history of nicotine dependence; K59.00 Constipation, unspecified; K21.9 Gastro-esophageal reflux disease without esophagitis
CPT/HCPCS: 36415; 71020; 74000; 80053; 80307; 80320; 80329; 81003; 84443; 84484; 85025; 85379; 85652; 86038; 86140; 90853; 99222; 99231; 99238; A9270-GY; G0480

== ENCOUNTER 2017-10-03 19:58 | Inpatient (IN) | payer OTHER ==
[2017-10-03] MEDS ORDERED: ALPRAZolam TAB* 0.5 MG PO ONE (20:48)
[2017-10-03 21:21] LABS: Urine Appearance Cloudy; Urine Blood Negative (Negative); Urine Color Yellow; Urine Ketones Negative (Negative); Urine Protein Negative (Negative); Urine Specific Gravity 1.011 (1.010-1.030); Urine Urobilinogen Negative (Negative)
[2017-10-03 21:28] LABS: ABS Basophils 0 10^3/ul (0-0.2); ABS Eosinophils 0 10^3/ul (0-0.6); ABS Lymphocytes 1.6 10^3/ul (1.0-4.8); ABS Monocytes 0.7 10^3/ul (0-0.8); ABS Neutrophils 5.2 10^3/ul (1.5-7.7); ABS Nucleated RBC 0 10^3/ul; Eosinophil % 0.6 % (0-6); Hematocrit 44 % (42-52); Lymphocyte % 20.6 % (25-47); Mean Corpuscular HGB Conc 34 g/dl (31-36); Mean Corpuscular Hemoglobin 33 pg (27-31); Mean Corpuscular Volume 97 fL (80-94); Mean Platelet Volume 7 um3 (7.4-10.4); Nucleated Red Blood Cells % 0; Platelet Count 221 10^3/ul (150-450); Red Blood Count 4.58 10^6/ul (4.0-5.4); Red Cell Distribution Width 14 % (10.5-15); White Blood Count 7.5 10^3/ul (3.5-10.8)
[2017-10-03 21:39] LABS: EGFR Non-African American 64.1 (>60)
[2017-10-04] MEDS ORDERED: Mirtazapine TAB* 15 MG PO SCH (01:00)
--- NOTE | 2017-10-04 01:37 | ED ---
Fozia Concepcion Gabriel, scribed for Martín Reed MD on 10/03/17 at 2048 . Psychiatric Complaint - HPI Summary HPI Summary: This patient is a 52 year old M presenting to [facility] with a chief complaint of intermittent body tension due to anxiety since two weeks ago that happens every day but was worse today. Patient reports SOB and SI. He sees his psychiatrist once every three months. Hx COPD - History Of Current Complaint Chief Complaint: EDGeneral Time Seen by Provider: 10/03/17 20:37 Hx Obtained From: Patient Onset/Duration: Still Present Timing: Constant Severity Initially: Moderate Severity Currently: Moderate Character: Anxious Related History: Positive For: Prior Psychiatric Issues Has Suicidal: Reports: Thoughts. Denies: With A Plan, Demonstrates Gesture Has Homicidal: Denies: Thoughts, With A Plan - Allergies/Home Medications Allergies/Adverse Reactions: Allergies Allergy/AdvReac Type Severity Reaction Status Date / Time shellfish derived Allergy Unknown Verified 10/03/17 22:13 Reaction Details Home Medications: Home Medications Tiotropium CAP.INH* [Spiriva CAP.INH*] 1 cap.inh INH DAILY 10/03/17 [History Confirmed 10/03/17] PMH/Surg Hx/FS Hx/Imm Hx Endocrine/Hematology History: Denies: Hx Diabetes, Hx Thyroid Disease, Hx Anemia Cardiovascular History: Reports: Hx Angina Denies: Hx Coronary Artery Disease, Hx Hypercholesterolemia, Hx Hypertension , Hx Myocardial Infarction, Hx Valvular Heart Disease Respiratory History: Reports: Hx Asthma - childhood, Hx Chronic Obstructive Pulmonary Disease (COPD) GI History: Reports: Hx Gastroesophageal Reflux Disease, Other GI Disorders - GERD Denies: Hx Jaundice, Hx Ulcer Sensory History: Reports: Hx Cataracts, Hx Contacts or Glasses - for driving only Denies: Hx Hearing Aid Opthamlomology History: Reports: Hx Cataracts, Hx Contacts or Glasses - for driving only Psychiatric History: Reports: Hx Anxiety, Hx Depression, Hx Panic Disorder, Hx Community Mental Health Tx, Hx Bipolar Disorder - patient disagrees with diagnosis, Hx Substance Abuse - marijuana - quit 2006, Other Psychiatric Issues/ Disorders - Hx of panic attacks Denies: Hx Eating Disorder, Hx Inpatient Treatment, Hx Suicide Attempt, Hx of Violent Episodes Against Others - Surgical History Surgery Procedure, Year, and Place: vasectomy - 2002 - Immunization History Date of Tetanus Vaccine: unk Date of Influenza Vaccine: none Infectious Disease History: No Infectious Disease History: Denies: Hx Hepatitis, Hx Human Immunodeficiency Virus (HIV), Traveled Outside the [place] in Last 30 Days - Family History Known Family History: Positive: Cardiac Disease, Hypertension, Diabetes, Other - CVA - Social History Alcohol Use: Weekly Hx Substance Use: No Substance Use Type: Reports: None Hx Tobacco Use: Yes Smoking Status (MU): Former Smoker Type: Cigarettes Amount Used/How Often: 2-3 per day Review of Systems Positive: Shortness Of Breath Positive: Other - body "tightness" Positive: Anxious, Other - SI All Other Systems Reviewed And Are Negative: Yes Physical Exam - Summary Physical Exam Summary: VITAL SIGNS: Reviewed. GENERAL: Patient is a well-developed and nourished MALE who is lying comfortable in the stretcher. Patient is not in any acute respiratory distress. HEAD AND FACE: No signs of trauma. No ecchymosis, hematomas or skull depressions. No sinus tenderness. EYES: PERRLA, EOMI x 2, No injected conjunctiva, no nystagmus. EARS: Hearing grossly intact. Ear canals and tympanic membranes are within normal limits. MOUTH: Oropharynx within normal limits. NECK: Supple, trachea is midline, no adenopathy, no JVD, no carotid bruit, no c- spine tenderness, neck with full ROM. CHEST: Symmetric, no tenderness at palpation LUNGS: Clear to auscultation bilaterally. No wheezing or crackles. CVS: Regular rate and rhythm, S1 and S2 present, no murmurs or gallops appreciated. ABDOMEN: Soft, non-tender. No signs of distention. No rebound no guarding, and no masses palpated. Bowel sounds are normal. EXTREMITIES: FROM in all major joints, no edema, no cyanosis or clubbing. NEURO: Alert and oriented x 3. No acute neurological deficits. Speech is normal and follows commands. SKIN: Dry and warm Triage Information Reviewed: Yes Vital Signs On Initial Exam: Initial Vitals Temp Pulse Resp BP Pulse Ox 99.5 F 76 18 122/57 97 10/03/17 20:01 10/03/17 20:01 10/03/17 20:01 10/03/17 20:01 10/03/17 20:01 Vital Signs Reviewed: Yes Diagnostics - Vital Signs Vital Signs Temp Pulse Resp BP Pulse Ox 10/03/17 20:01 99.5 F 76 18 122/57 97 - Laboratory Result Diagrams: 10/03/17 21:12 10/03/17 21:12 Lab Statement: Any lab studies that have been ordered have been reviewed, and results considered in the medical decision making process. Course/Dx - Course Assessment/Plan: This patient is a 52 year old M presenting to [facility] with a chief complaint of intermittent body tension due to anxiety since two weeks ago that happens every day but was worse today. Patient reports SOB and SI. He sees his psychiatrist once every three months. Hx COPD. The MHE was done by Dr. Sanchez. Dx mood disorder nos. Patient will be admitted. The patient is agreeable with this plan. - Differential Dx/Clinical Impression Provider Diagnosis: Mood disorder due to known physiological condition, unspecified Discharge - Discharge Plan Condition: Fair Disposition: ADMITTED TO [facility] The documentation as recorded by the Fozia aldana Gabriel accurately reflects the service I personally performed and the decisions made by me, Martín Reed MD.
[2017-10-04] MEDS ORDERED: Nicotine GUM* 2 MG ONE (02:59)
[2017-10-04] MEDS: Tiotropium CAP.INH* CAP.INH/18 MCG (USE ORDER SET !) INH SCH (08:40)
[2017-10-04] MEDS: Vitamin THERAPEUTIC TAB PO SCH (08:41)
[2017-10-04] MEDS: Nicotine GUM* 2 MG PO PRN ×4 (08:46→20:40)
[2017-10-04] MEDS ORDERED: Spiriva Inhaler DEVICE* 1 EACH DEVICE INH ONE (09:00)
--- NOTE | 2017-10-04 11:49 | ADMNOTE ---
History - Objective HPI: Psychiatric Attending History and Physical NAME:Magno Marion : 1965 AGE: 52 PROVIDER: Leonardo Vanegas DATE OF ADMISSION: 10/04/2017 JUSTIFICATION FOR ADMISSION: 09/05/2017 CHIEF COMPLAINT:"I have this terrible anxiety which has gotten worse in the past few weeks and making me feel suicidal" HISTORY OF THE PRESENT ILLNESS: 52 yo single unemployed male who lives alone in [place]. Patient has been unable to work since 2006 which he attributes to severe anxiety which he describes as lifelong and beginning in first grade. Patient reports history of social anxiety disorder, panic disorder, agoraphobia, and depression. He reports that for most of his life he did not seek out treatment and cannot give a reason why. He moved back to [place] where he was raised, from [place] in 2006 but descirbes his mental health having deteriorated since returning with recurrent episodes of depression, persistent dysphroic mood, disabling anxiety, panic attacks, inability to leave the home. He further acknowledges anergia, amotivation, anhedonia, indecisiveness. He denies appetite or sleep difficulties. He He reports that since August of 2016 his anxiety has been so severe that it prevents him from leaving house which further exacerbates his sense of hopelessness and isolation. He has no friends.and has only occasional contact with his brother who lives in [place]. Patient has been receiving psychiatic treatment for the past year or so at [facility] where he has been seeing a therapist and psychiatrist (Dr. Benz). First psychiatric adission was here in 03/2017 for a two week period. At that time he was having shortness of breath which was felt to be related to combination of newly diagnosed COPD and and Panic Disorder. patient began having suicidal ideation in October of 2016 which he attributed to the increased severity of anxiety beginning in August of the same year. Over the past year patient has had infrequent intermittent suicidal ideation. In past two weeks he describes having increasingly severe anxiety which begins abruptly and comes to a peak after which the symptoms persist but to a lesser degree: symptoms include breathlessness, tension/pain in chest and stomach, palpitations/increased heart rate, fear that he is dying, trembling /shaking, lightheadedness, chills. acute episodes are occurring 3 to 4 times daily but never completely remit. patient self presented to ED due to his severe level of distress over his symptoms. PAST PSYCHIATRIC HISTORY: Reports he was diagnosed with bipolar disorder many years ago but deneis history of jus and feels strongly that he does not have bipolar disorder. as above. denies history of suicide attempt no family history of suicide attempt. past medication trials: 03/2017 discharged from [facility] on Remeron 7.5 mg and Effexor. Effexor discontinued after a few weeks because he felt "an unnatural high" Treated with Seroquel 300 mg daily X 10 years. this was tapered in fall after discharge from hospital. treated with zoloft many years ago for a month or so but doesnt remember effect. NO OTHER PSYCHIATRIC MEDICATIONS USED OTHER THAN MEDICATIONS LISTED ABOVE. SUBSTANCE ABUSE HISTORY: DENIES HISTORY OF PAST OR PRESENT ALCOHOL OR SUBSTANCE ABUSE. USED MARIJUANA DAILY FOR MANY YEARS BUT QUIT IN 2006 SMOKED ONE PPD TOBACCO FOR 35 YEARS BUT QUIT IN 2015 PAST MEDICAL HISTORY: COPD TREATED WITH SPIRIVA PCP IS DR. GOMEZ CURRENT MEDICATIONS: REMERON 7.5 MG QHS SPIRIVA ONCE DAILY INHALATION IN AM ALLERGIES: SHELL FISH FAMILY PSYCHIATRIC HISTORY: depression and anxiety in multiple maternal family members including: brother, Maternal Grandmother and mother no history of completed suicide in family FAMILY/PSYCHOSOCIAL HISTORY: born and raised in [facility] until 9th grade when his father landed a position as a professor at [employer] Family moved here. He completed high school in [place]. Completed 3 and one half years of his Bachelors at [employer] in [place] arts. Anxiety and agoraphobia worsened and he fell in love with girl from [place] causing him to leave school. today this is his biggest regret. 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 no history of legal problems. longest relationship was 5 years with woman in [place]. no children. denies history of past trauma. REVIEW OF SYSTEMS: all noncontributory per hospitalist's H and P completed in ED on 09/05/2017 PHYSICAL EXAMINATION: UNREMARKABLE (NORMAL PHYSICAL EXAMINATION) per hospitalist 's H and P completed in ED on 09/05/2017 MENTAL STATUS EXAMINATION: Patient presents and fairly well related 52 yo male who has short stature, shen hair with central balding His eye contact is diminished. His demeanor is anxious. He shuffles in his seat and is mildly restless. speech: normal rate, volume, and rhythm, there is a vibration/flutter in his speech likely result of his social anxiety. he pauses and looks down often. mood: described as sad and anxious. Affect: is congruent with mood. He has a worried and apprehensive countenance. Thought process is organized, goal directed and coherent but at times vague. He has some degree of difficulty articulating exactly what he is feeling He describes ongoing internal sense of restlessness, movement, agitation, uneasiness. TC: denies worrying about particular issues related to real life. preoccupied with sob and somatic discomforts attrituted to anxiety. denies present or history of hallucinations, delusons, parania. reports that he has no gun nor intent to purchase a gun. suicidal ideation comes when anxiety is so severe. report that relaxation, and low stimulation (quiet, darkness, relaxation such as lying down ) ameliorates symptoms. Alert fully oriented in all spheres. patient has fairly good insight. judgment intact. LABORATORY DATA: Laboratory Results - last 24 hr 10/03/17 10/03/17 10/03/17 21:09 21:09 21:12 WBC RBC Hgb Hct MCV MCH MCHC RDW Plt Count MPV Neut % (Auto) Lymph % (Auto) Greene % (Auto) Eos % (Auto) Baso % (Auto) Absolute Neuts (auto) Absolute Lymphs (auto) Absolute Monos (auto) Absolute Eos (auto) Absolute Basos (auto) Absolute Nucleated RBC Nucleated RBC % Sodium 137 Potassium 3.7 Chloride 104 Carbon Dioxide 27 Anion Gap 6 BUN 12 Creatinine 1.20 H Est GFR ( Amer) 82.4 Est GFR (Non-Af Amer) 64.1 BUN/Creatinine Ratio 10.0 Glucose 98 Calcium 9.4 Total Bilirubin 0.30 AST 23 ALT 30 Alkaline Phosphatase 90 Total Protein 6.9 Albumin 4.2 Globulin 2.7 Albumin/Globulin Ratio 1.6 TSH 2.22 Urine Color Yellow Urine Appearance Cloudy Urine pH 7.0 Ur Specific [place] 1.011 Urine Protein Negative Urine Ketones Negative Urine Blood Negative Urine Nitrate Negative Urine Bilirubin Negative Urine Urobilinogen Negative Ur Leukocyte Esterase Negative Urine Glucose Negative Salicylates < 2.50 Urine Opiates Screen None detected Acetaminophen < 15 Ur Barbiturates Screen None detected Ur Phencyclidine Scrn None detected Ur Amphetamines Screen None detected U Benzodiazepines Scrn None detected Urine Cocaine Screen None detected U Cannabinoids Screen None detected Serum Alcohol < 10 10/03/17 21:12 WBC 7.5 RBC 4.58 Hgb 15.0 Hct 44 MCV 97 H MCH 33 H MCHC 34 RDW 14 Plt Count 221 MPV 7 L Neut % (Auto) 69.0 Lymph % (Auto) 20.6 L Greene % (Auto) 9.3 H Eos % (Auto) 0.6 Baso % (Auto) 0.5 Absolute Neuts (auto) 5.2 Absolute Lymphs (auto) 1.6 Absolute Monos (auto) 0.7 Absolute Eos (auto) 0 Absolute Basos (auto) 0 Absolute Nucleated RBC 0 Nucleated RBC % 0 Sodium Potassium Chloride Carbon Dioxide Anion Gap BUN Creatinine Est GFR ( Amer) Est GFR (Non-Af Amer) BUN/Creatinine Ratio Glucose Calcium Total Bilirubin AST ALT Alkaline Phosphatase Total Protein Albumin Globulin Albumin/Globulin Ratio TSH Urine Color Urine Appearance Urine pH Ur Specific Strat[place] Urine Protein Urine Ketones Urine Blood Urine Nitrate Urine Bilirubin Urine Urobilinogen Ur Leukocyte Esterase Urine Glucose Salicylates Urine Opiates Screen Acetaminophen Ur Barbiturates Screen Ur Phencyclidine Scrn Ur Amphetamines Screen U Benzodiazepines Scrn Urine Cocaine Screen U Cannabinoids Screen Serum Alcohol IMPRESSION: 52 yo with history of longstaning social anxiety, panic disorder , agoraphobia and persistent depressive disorder which meets criteria at present for major depressive disorder single episode. patient has no history of substance use. He is relatively treatment naive having only been treated with a moderate dose of seroquel for many years. interestingly, he has deteriorated since seroquel was discontinued 6 months ago with increased anxiety, panic attacks, worsening agoraphobia and depressive symptoms. DIAGNOSES: Social Anxiety Disorder Panic Disorder with Agoraphobia Persistent Depressive Disorder Major Depressive Disorder single episode severe suicidal ideation with plan COPD PLAN: admit to [facility] on q 15 min observation status individual and group therapy and milieu involvement DBT group and anxiety management techniques increase remeron to 15 mg qhs start klonopin 0.25 mg BID and 0.5 mg QHS Gabapentin 200 mg Q4h prn anxiety Trazodone 50 mg po QHS prn insomnia social work consult for eval, therapy and d/c planning nicotine replacement therapy for w/d symptoms Exam Insight and Judgement: Fair
[2017-10-04] MEDS ORDERED: Pneumococcal *Vac Polyvalent 0.5 ML VIAL IM ONE (14:00)
[2017-10-04] MEDS ORDERED: clonazePAM TAB(*) 0.5 MG PO ONE (18:37)
[2017-10-04] MEDS ORDERED: Gabapentin CAP(*) 100 MG PO PRN (18:39)
[2017-10-04] MEDS ORDERED: traZODone TAB* 50 MG TAB PO PRN (18:42)
[2017-10-04] MEDS: clonazePAM TAB(*) 0.5 MG PO SCH (20:39)
[2017-10-04] MEDS: Mirtazapine TAB* 15 MG PO SCH (20:39)
[2017-10-05] MEDS: Vitamin THERAPEUTIC TAB PO SCH (08:55)
[2017-10-05] MEDS: Tiotropium CAP.INH* CAP.INH/18 MCG (USE ORDER SET !) INH SCH (08:55)
[2017-10-05] MEDS: clonazePAM TAB(*) 0.5 MG PO SCH ×3 (08:56→21:18)
[2017-10-05] MEDS: Nicotine GUM* 2 MG PO PRN ×5 (08:58→21:17)
--- NOTE | 2017-10-05 12:05 | PN ---
MHU: Group Therapy Note - Service Type Service Type: [id number] Group Psychotherapy - Cognitive Behavioral Group Therapy ( CBT):Patient was attentive and participatory in CBT programming this morning, and remained in good behavioral control. Patient expressed positive insights regarding relevant treatment interventions and goals.
--- NOTE | 2017-10-05 12:05 | PN ---
Subjective - Subjective Subjective: Psychiatric attending progress note: attended all groups. cooperative medication compliant Met with patient X 25 min unshaved, hygiene fair. speech normal mood: anxious affect: anxious, diminished range TP organized TC no psychotic symptoms. denies SI today reports 15 percent reduction in somatic component of his anxiety (less chest tightness) likes the klonopin as it gives him relief from anxiety insight: fair judgment: intact denies side effects of sedation, dizziness, ataxia. Reports he slept much more soundly last night than he usually does Impression: Social Anxiety Panic Disorder and agoraphobia MDD single episode Plan: start Gabapentin 100 mg TID X 2 then 200 mg X 2 d then 300 mg daily continue other medications unchanged add nicotine patch Plan - Plan Treatment Plan: Name: JOANNE Adilson BILLS Birthdate: 1965 [id number]
[2017-10-05] MEDS: Al Hydrox/Mg Hydrox/Simet LIQ* 30 ML UDC PO PRN ×2 (13:52→20:01)
[2017-10-05] MEDS: Nicotine PATCH 7 MG/24 HR* PATCH TRANSDERM SCH (18:39)
[2017-10-05] MEDS: Nicotine Patch Removal NOTE FOLLOW UP SCH (21:18)
[2017-10-05] MEDS: Mirtazapine TAB* 15 MG PO SCH (21:18)
[2017-10-06] MEDS: Nicotine PATCH 7 MG/24 HR* PATCH TRANSDERM SCH (08:43)
[2017-10-06] MEDS: Gabapentin CAP(*) 100 MG PO SCH ×3 (08:44→17:20)
[2017-10-06] MEDS: Vitamin THERAPEUTIC TAB PO SCH (08:44)
[2017-10-06] MEDS: Nicotine GUM* 2 MG PO PRN ×4 (08:46→21:36)
[2017-10-06] MEDS: Acetaminophen TAB* 325 MG PO PRN (08:46)
[2017-10-06] MEDS: Tiotropium CAP.INH* CAP.INH/18 MCG (USE ORDER SET !) INH SCH (08:47)
[2017-10-06] MEDS: clonazePAM TAB(*) 0.5 MG PO SCH ×3 (09:00→21:35)
--- NOTE | 2017-10-06 11:17 | PN ---
Subjective - Subjective Subjective: PSYCHIATRIC ATTENDING PROGRESS NOTE: Magno reports that he feels less anxious, calmer than yesterday. also feels less sedation from klonopin today. reports that he has begun to notice a clear benefit from medication changes. Reports that somatic discomfort which he describes as tightness about his chest and stomach have diminished feels less worried, less self conscious, and has improved clarity in his thinking. We discussed goal of titrating Gabapentin over the weekend in order to further stabalize his mood and optimize control of anxiety and panic symptoms reports he slept very well last night and feels improved sleep has also helped foster increased feeling of well being. MSE: well related no SI, intention or plan no psychotic symptoms Impression: panic with severe agoraphobia social anxiety disorder Major depressive episode moderate to severe improving with medication changes. will titrate gabapentin over weekend. discharge will be tuesday10/06/2017 Plan - Plan Treatment Plan: Name: MAGNO BILLS Birthdate: 1965 [id number] Medications: Current Medications Acetaminophen (Tylenol Tab*) 650 mg PO Q4H PRN PRN Reason: PAIN or TEMP > 101 F Last Admin: 10/06/17 08:46 Dose: 650 mg Al Hydrox/Mg Hydrox/Simethicone (Maalox Plus*) 30 ml PO Q4H PRN PRN Reason: INDIGESTION Last Admin: 10/05/17 20:01 Dose: 30 ml Clonazepam (Klonopin Tab(*)) 0.5 mg PO BEDTIME [facility] Last Admin: 10/05/17 21:18 Dose: 0.5 mg Clonazepam (Klonopin Tab(*)) 0.25 mg PO BID@,14 [facility] Last Admin: 10/06/17 09:00 Dose: 0.25 mg Gabapentin (Neurontin Cap(*)) 100 mg PO TID@ [facility] Stop: 10/07/17 17:01 Last Admin: 10/06/17 08:44 Dose: 100 mg Gabapentin (Neurontin Cap(*)) 200 mg PO TID@ [facility] Stop: 10/09/17 17:01 Gabapentin (Neurontin Cap(*)) 300 mg PO TID@ [facility] Mirtazapine (Remeron Tab*) 15 mg PO BEDTIME [facility] Last Admin: 10/05/17 21:18 Dose: 15 mg Multivitamins (Theragran Tab*) 1 tab PO DAILY [facility] Last Admin: 10/06/17 08:44 Dose: 1 tab Nicotine (Nicotine Patch 7 Mg/24 Hr*) 1 patch TRANSDERM DAILY [facility] Last Admin: 10/06/17 08:43 Dose: 1 patch Nicotine Polacrilex (Nicotine Gum*) 2 mg PO Q2H PRN PRN Reason: CRAVING Last Admin: 10/06/17 08:46 Dose: 2 mg Pharmacy Profile Note (Nicotine Patch Removal Note*) 1 note FOLLOW UP 2100 [facility] Last Admin: 10/05/17 21:18 Dose: Not Given Tiotropium [place] (Spiriva Cap.Inh*) 1 cap INH DAILY [facility] Last Admin: 10/06/17 08:47 Dose: 1 cap Trazodone HCl (Desyrel Tab*) 50 mg PO BEDTIME PRN PRN Reason: INSOMNIA
--- NOTE | 2017-10-06 11:49 | PN ---
MHU: Group Therapy Note - Service Type Service Type: [id number] Group Psychotherapy - Cognitive Behavioral Group Therapy ( CBT):Patient was attentive and participatory in CBT programming this morning, and remained in good behavioral control. Patient expressed positive insights regarding relevant treatment interventions and goals.
[2017-10-06] MEDS: Al Hydrox/Mg Hydrox/Simet LIQ* 30 ML UDC PO PRN (13:13)
[2017-10-06] MEDS: Famotidine TAB* 20 MG PO SCH (13:54)
--- NOTE | 2017-10-06 16:47 | PN ---
MHU: Group Therapy Note - Service Type Service Type: [id number] Group Psychotherapy - Medication Education Group: Patient was attentive and participatory in group, and remained in good behavioral control. Patient expressed positive insights regarding relevant treatment interventions. Patient stated understanding of material discussed and had appropriate questions.
[2017-10-06] MEDS: Mirtazapine TAB* 15 MG PO SCH (21:35)
[2017-10-06] MEDS: Nicotine Patch Removal NOTE FOLLOW UP SCH (21:35)
[2017-10-07] MEDS: Nicotine GUM* 2 MG PO PRN ×5 (04:36→22:01)
[2017-10-07] MEDS: Vitamin THERAPEUTIC TAB PO SCH (08:40)
[2017-10-07] MEDS: Tiotropium CAP.INH* CAP.INH/18 MCG (USE ORDER SET !) INH SCH (08:40)
[2017-10-07] MEDS: Nicotine PATCH 7 MG/24 HR* PATCH TRANSDERM SCH (08:40)
[2017-10-07] MEDS: Famotidine TAB* 20 MG PO SCH (08:41)
[2017-10-07] MEDS: Gabapentin CAP(*) 100 MG PO SCH ×3 (08:45→17:58)
[2017-10-07] MEDS: clonazePAM TAB(*) 0.5 MG PO SCH ×3 (08:45→21:58)
--- NOTE | 2017-10-07 10:39 | PN ---
Subjective - Subjective Subjective: PSYCHIATRIC ATTENDING PROGRESS NOTE: met with patient x 20 min. He reports that he is feeling better daily. notices decreased somatic anxiety and reduced psychical component as well. no chest tightness today and no shortness of breath. tolerating gabapentin titration. denies dizziness, lethargy, sedation, headache, unsteady gait. Objective - Appearance Appearance: Well Developed/Nourished Dysmorphic Features: No Hygiene: Normal Grooming: Fairly Well Kept - Behavior Psychomotor Activities: Normal Exhibits Abnormal Movement: No - Attitude and Relatedness Attitude and Relatedness: Cooperative Eye Contact: Good - Mood Patient's Decription of Mood: "Anxious" - Affect Observed Affect: Non-labile - Thought Process Patient's Thought Process: Coherent Thought Content: No Passive Wish, No Suicidal Planning, No Homicidal Ideation, No Paranoid Ideation - Sensorium Experiencing Hallucinations: No, Sensorium is Clear Type of Hallucinations: Visual: No, Auditory: No, Command: No - Level of Consciousness Level of Consciousness: Alert Orientation: Yes Intact, Yes Orientated to Time, Yes Orientated to Place, Yes Orientated to Person - Impulse Control Impulse Control: Intact - Insight and Judgement Insight and Judgement: Good - Group Participation Particating in Group Activities: Yes - Medication Management Medication Management Adherence: Yes Assessment - Assessment Clinical Impression: 52 yo admitted with panic disorder, agoraphobia, illness associated anxiety and depressive episode with sucidal ideation. patient making good progress with good response to combination of remeron, klonopin, gabapentin and trazodone. Plan - Plan Medications: increase remeron to 30 mg qhs increase gabapentin to 200 mg tid X 2 d then 300 mg TID other medications unchanged discharge will be tuesday with [facility]
--- NOTE | 2017-10-07 11:44 | PN ---
MHU: Group Therapy Note - Service Type Service Type: [id number] Group Psychotherapy - Cognitive Behavioral Group Therapy ( CBT):Patient was attentive and participatory in CBT programming this morning, and remained in good behavioral control. Patient expressed positive insights regarding relevant treatment interventions and goals.
[2017-10-07] MEDS: Al Hydrox/Mg Hydrox/Simet LIQ* 30 ML UDC PO PRN (14:03)
[2017-10-07] MEDS: Acetaminophen TAB* 325 MG PO PRN (14:03)
[2017-10-07] MEDS: Nicotine Patch Removal NOTE FOLLOW UP SCH (21:58)
[2017-10-07] MEDS: Mirtazapine TAB* 15 MG PO SCH (21:58)
[2017-10-07] MEDS: Omeprazole CAP* 20 MG PO SCH (21:58)
[2017-10-08] MEDS: Nicotine PATCH 7 MG/24 HR* PATCH TRANSDERM SCH (08:53)
[2017-10-08] MEDS: Tiotropium CAP.INH* CAP.INH/18 MCG (USE ORDER SET !) INH SCH (08:54)
[2017-10-08] MEDS: Vitamin THERAPEUTIC TAB PO SCH (08:54)
[2017-10-08] MEDS: Omeprazole CAP* 20 MG PO SCH ×2 (08:55→21:14)
[2017-10-08] MEDS: Gabapentin CAP(*) 100 MG PO SCH ×3 (08:55→17:19)
[2017-10-08] MEDS: clonazePAM TAB(*) 0.5 MG PO SCH ×3 (08:56→21:13)
[2017-10-08] MEDS: Nicotine GUM* 2 MG PO PRN ×4 (08:58→19:44)
[2017-10-08] MEDS: Acetaminophen TAB* 325 MG PO PRN (13:44)
[2017-10-08] MEDS: Mirtazapine TAB* 15 MG PO SCH (21:12)
[2017-10-08] MEDS: Nicotine Patch Removal NOTE FOLLOW UP SCH (21:13)
[2017-10-09] MEDS: Tiotropium CAP.INH* CAP.INH/18 MCG (USE ORDER SET !) INH SCH (08:44)
[2017-10-09] MEDS: Gabapentin CAP(*) 100 MG PO SCH ×3 (08:44→17:35)
[2017-10-09] MEDS: clonazePAM TAB(*) 0.5 MG PO SCH ×3 (08:45→20:53)
[2017-10-09] MEDS: Vitamin THERAPEUTIC TAB PO SCH (08:45)
[2017-10-09] MEDS: Nicotine GUM* 2 MG PO PRN ×5 (08:48→20:55)
[2017-10-09] MEDS: Omeprazole CAP* 20 MG PO SCH ×2 (08:48→20:53)
[2017-10-09] MEDS: Nicotine PATCH 7 MG/24 HR* PATCH TRANSDERM SCH (08:49)
[2017-10-09] MEDS: Mirtazapine TAB* 15 MG PO SCH (20:53)
--- NOTE | 2017-10-09 22:03 | PN ---
Subjective - Subjective Date of Service: 10/09/17 Service Type: [id number] Hosp care 15 min low complexity Subjective: Patient thinks he is doing much better on current meds and can see a difference in his anxiety level. Otherwise denies psychosis, SI or HI. Objective - Appearance Appearance: Healthy Appearing Dysmorphic Features: No Hygiene: Normal Grooming: Fairly Well Kept - Behavior Psychomotor Activities: Abnormal-Increased - Attitude and Relatedness Attitude and Relatedness: Cooperative Eye Contact: Fair - Speech Quality: Unpressured Latencies: Normal Quantity: Appropriate - Mood Patient's Decription of Mood: "Good" - Affect Affect Consistent with: Euthymia - Thought Process Patient's Thought Process: Coherent, Goal Directed Thought Content: No Passive Wish, No Suicidal Planning, No Homicidal Ideation, No Paranoid Ideation - Sensorium Experiencing Hallucinations: No, Sensorium is Clear Type of Hallucinations: Visual: No, Auditory: No, Command: No - Level of Consciousness Level of Consciousness: Alert Orientation: Yes Intact, Yes Orientated to Time, Yes Orientated to Place, Yes Orientated to Person - Impulse Control Impulse Control: Intact - Insight and Judgement Insight and Judgement: Fair - Group Participation Particating in Group Activities: Yes - Medication Management Medication Management Adherence: Yes Assessment - Assessment Merits Inpatient Hospitalization: Consolidate Improvements, For Discharge Planning Plan - Plan Treatment Plan: Name: JOANNE BILLS Birthdate: 1965 [id number] Continued Medication Management: Continue Outpt Medication Medications: Current Medications Acetaminophen (Tylenol Tab*) 650 mg PO Q4H PRN PRN Reason: PAIN or TEMP > 101 F Last Admin: 10/08/17 13:44 Dose: 650 mg Al Hydrox/Mg Hydrox/Simethicone (Maalox Plus*) 30 ml PO Q4H PRN PRN Reason: INDIGESTION Last Admin: 10/07/17 14:03 Dose: 30 ml Clonazepam (Klonopin Tab(*)) 0.5 mg PO BEDTIME [facility] Last Admin: 10/09/17 20:53 Dose: 0.5 mg Clonazepam (Klonopin Tab(*)) 0.25 mg PO BID@,14 [facility] Last Admin: 10/09/17 13:38 Dose: 0.25 mg Gabapentin (Neurontin Cap(*)) 300 mg PO TID@,13,17 [facility] Mirtazapine (Remeron Tab*) 30 mg PO BEDTIME [facility] Last Admin: 10/09/17 20:53 Dose: 30 mg Multivitamins (Theragran Tab*) 1 tab PO DAILY [facility] Last Admin: 10/09/17 08:45 Dose: 1 tab Nicotine (Nicotine Patch 7 Mg/24 Hr*) 1 patch TRANSDERM DAILY [facility] Last Admin: 10/09/17 08:49 Dose: 1 patch Nicotine Polacrilex (Nicotine Gum*) 2 mg PO Q2H PRN PRN Reason: CRAVING Last Admin: 10/09/17 20:55 Dose: 2 mg Omeprazole (Prilosec Cap*) 20 mg PO BID@ [facility] Last Admin: 10/09/17 20:53 Dose: 20 mg Pharmacy Profile Note (Nicotine Patch Removal Note*) 1 note FOLLOW UP 2100 [facility] Last Admin: 10/08/17 21:13 Dose: 1 note Tiotropium [place] (Spiriva Cap.Inh*) 1 cap INH DAILY [facility] Last Admin: 10/09/17 08:44 Dose: 1 cap Trazodone HCl (Desyrel Tab*) 50 mg PO BEDTIME PRN PRN Reason: INSOMNIA - Discharge Plan Discharge Plan: Outpatient Follow [facility]
[2017-10-10] MEDS: Nicotine GUM* 2 MG PO PRN (07:37)
[2017-10-10] MEDS: Vitamin THERAPEUTIC TAB PO SCH (07:37)
[2017-10-10] MEDS: Tiotropium CAP.INH* CAP.INH/18 MCG (USE ORDER SET !) INH SCH (07:38)
[2017-10-10] MEDS: Nicotine PATCH 7 MG/24 HR* PATCH TRANSDERM SCH (07:39)
[2017-10-10] MEDS ORDERED: Gabapentin CAP(*) 300 MG PO SCH (09:00)
[2017-10-10] MEDS: clonazePAM TAB(*) 0.5 MG PO SCH (09:17)
[2017-10-10] MEDS: Omeprazole CAP* 20 MG PO SCH (09:18)
[2017-10-10 09:40] VITALS: BP 103/68
[2017-10-10] MEDS: Nicotine Patch Removal NOTE FOLLOW UP SCH (09:42)
--- NOTE | 2017-10-10 10:49 | DS ---
Treatment Course & Assessment Clinical Course & Impression: 52 yo admitted with panic disorder, agoraphobia, illness associated anxiety and depressive episode with sucidal ideation. patient making good progress with good response to combination of remeron, klonopin, gabapentin and trazodone. Discharge Planning - Discharge Planning Medications: Current Medications Acetaminophen (Tylenol Tab*) 650 mg PO Q4H PRN PRN Reason: PAIN or TEMP > 101 F Last Admin: 10/08/17 13:44 Dose: 650 mg Al Hydrox/Mg Hydrox/Simethicone (Maalox Plus*) 30 ml PO Q4H PRN PRN Reason: INDIGESTION Last Admin: 10/07/17 14:03 Dose: 30 ml Clonazepam (Klonopin Tab(*)) 0.5 mg PO BEDTIME [facility] Last Admin: 10/09/17 20:53 Dose: 0.5 mg Clonazepam (Klonopin Tab(*)) 0.25 mg PO BID@,14 [facility] Last Admin: 10/10/17 09:17 Dose: 0.25 mg Gabapentin (Neurontin Cap(*)) 300 mg PO TID@,, [facility] Last Admin: 10/10/17 09:16 Dose: 300 mg Mirtazapine (Remeron Tab*) 30 mg PO BEDTIME [facility] Last Admin: 10/09/17 20:53 Dose: 30 mg Multivitamins (Theragran Tab*) 1 tab PO DAILY [facility] Last Admin: 10/10/17 07:37 Dose: 1 tab Nicotine (Nicotine Patch 7 Mg/24 Hr*) 1 patch TRANSDERM DAILY [facility] Last Admin: 10/10/17 07:39 Dose: 1 patch Nicotine Polacrilex (Nicotine Gum*) 2 mg PO Q2H PRN PRN Reason: CRAVING Last Admin: 10/10/17 07:37 Dose: 2 mg Omeprazole (Prilosec Cap*) 20 mg PO BID@, [facility] Last Admin: 10/10/17 09:18 Dose: 20 mg Pharmacy Profile Note (Nicotine Patch Removal Note*) 1 note FOLLOW UP 2100 [facility] Last Admin: 10/10/17 09:42 Dose: Not Given Tiotropium [place] (Spiriva Cap.Inh*) 1 cap INH DAILY [facility] Last Admin: 10/10/17 07:38 Dose: 1 cap Trazodone HCl (Desyrel Tab*) 50 mg PO BEDTIME PRN PRN Reason: INSOMNIA Discharge Planning: Prescriptions provided for discharge [] Yes [] No Follow up care details as per social work arrangements. Patient response to discharge plan: [] eager for discharge [] agreeable with discharge plan [] ambivalent about discharge [] disagrees with discharge today
--- NOTE | 2017-10-10 11:44 | PN ---
MHU: Group Therapy Note - Service Type Service Type: [id number] Group Psychotherapy - Cognitive Behavioral Group Therapy ( CBT):Patient was attentive and participatory in CBT programming this morning, and remained in good behavioral control. Patient expressed positive insights regarding relevant treatment interventions and goals.
== END 2017-10-10 11:05 | disposition home or self-care (01) | DRG 755 ==
LOC: ED 19:58 → BSU 10-04 01:31
PROVIDERS: ADMIT Psychiatry & Neurology Psychiatry; ATTEND Psychiatry & Neurology Psychiatry
DX: F40.01 Agoraphobia with panic disorder (principal); F33.2 Major depressive disorder, recurrent severe without psychotic features; R45.851 Suicidal ideations; F40.10 Social phobia, unspecified; F34.1 Dysthymic disorder; J44.9 Chronic obstructive pulmonary disease, unspecified; Z87.891 Personal history of nicotine dependence; Z79.899 Other long term (current) drug therapy; Z91.013 Allergy to seafood; Z81.8 Family history of other mental and behavioral disorders
CPT/HCPCS: 36415; 80053; 80307; 80320; 80329; 81003; 84443; 85025; 90732; 90853; 99222; 99231; 99232; 99238; 99284; A9270-GY; G0480

== ENCOUNTER 2019-02-23 11:22 | Observation (INO) | payer BC, OTHER ==
[2019-02-23 12:12] LABS: ABS Lymphocytes 0.9 10^3/ul (1.0-4.8); ABS Monocytes 0.6 10^3/ul (0-0.8); Eosinophil % 0.1 %; Hematocrit 42 % (42-52); Hemoglobin 14.2 g/dL (14.0-18.0); Lymphocyte % 10.5 %; Mean Corpuscular HGB Conc 34 g/dL (31-36); Mean Corpuscular Hemoglobin 34 pg (27-31); Mean Corpuscular Volume 99 fL (80-94); Mean Platelet Volume 7.5 fL (7.4-10.4); Platelet Count 190 10^3/uL (150-450); Red Blood Count 4.24 10^6 /uL (4.18-5.48); Red Cell Distribution Width 13 % (10-15); White Blood Count 8.5 10^3/uL (3.5-10.8)
[2019-02-23 12:29] LABS: Albumin 4.3 g/dL (3.2-5.2); Albumin/Globulin Ratio 1.7 (1-3); BUN/Creatinine Ratio 17.4 (8-20); Calcium 8.9 mg/dL (8.6-10.3); EGFR African American 76.5 (>60); EGFR Non-African American 63.2 (>60); Globulin 2.6 g/dL (2-4); Potassium 3.9 mmol/L (3.5-5.0); Total Bilirubin 0.5 mg/dL (0.2-1.0); Total Protein 6.9 g/dL (6.4-8.9)
[2019-02-23] MEDS ORDERED: NS 0.9% 1000 ML** 2,000 ML IV ONE (12:46)
--- NOTE | 2019-02-23 12:48 | ED ---
Syncope/Near Syncope - HPI Summary HPI Summary: This patient is a 53 year old M presenting to [facility] with a chief complaint of syncope following low back pain since 199902/22/19. He stated that he was unable to stand and when he went to the bathroom the next morning that night he had a syncopal episode due to pain which is rated a 9/10. The condition has been worsening since this morning when 2 syncopal episodes occurred. The pt reports low back pain on 02/22/19 and stated that he began doing work on his computer before heading to bed. When he originally woke up he had to hold onto the wall due to the pain from his back. He states that after he stood up from the toilet he became dizzy and fell to the floor unconscious. This happened one more time when he stood up out of bed later in the day. He states that the pain radiates down to his R knee. He also reports nausea and feeling feverish prior to the syncopal episodes. He states that when he arrived to the hospital his back has felt progressively better. Pt denies any chills, erythema of eyes, sore throat, CP, SOB, cough, abdominal pain, N, dysuria, hematuria, myalgia, edema, rash. The symptoms are aggravated by movement and positional changes and alleviated by lying down. The pt does not have a PMHx of low back pain. He did state that he has COPD and anxiety. - History Of Current Complaint Chief Complaint: EDSyncope Time Seen by Provider: 02/23/19 12:31 Hx Obtained From: Patient Onset/Duration: Sudden Onset - 199902/22/19 back pain, syncopal episode today x2 FUR NAILER, Still Present - back pain, Resolved Timing: Frequency Of Episodes - 2 episodes Context: Unwitnessed Activity At Onset: Other - standing from a sitting position Aggravating Factor(s): Position Change, Other - movement Alleviating Factor(s): Rest, Other - Lying down Associated Signs And Symptoms: Negative - chills, erythema of eyes, sore throat , CP, SOB, cough, abdominal pain, N, dysuria, hematuria, myalgia, edema, rash., Dizzy, Pain - back pain, Other - feverish Frequency: Episodes x___ - 2 FUR NAILER - Allergies/Home Medications Allergies/Adverse Reactions: Allergies Allergy/AdvReac Type Severity Reaction Status Date / Time shellfish derived Allergy Unknown Verified 10/03/17 22:13 Reaction Details Home Medications: Home Medications Albuterol HFA INHALER* [Ventolin HFA Inhaler*] 1 - 2 puff INH Q6H PRN 02/23/19 [ History Confirmed 02/23/19] Gabapentin CAP(*) [Neurontin 300 CAP(*)] 300 mg PO TID 02/23/19 [History Confirmed 02/23/19] Lansoprazole SOLUTAB* [Prevacid Solutab*] 30 mg SL DAILY 02/23/19 [History Confirmed 02/23/19] Tiotropium CAP.INH* [Spiriva CAP.INH*] 1 cap.inh INH DAILY 02/23/19 [History Confirmed 02/23/19] clonazePAM TAB(*) [KlonoPIN TAB(*)] 0.5 mg PO BID PRN 02/23/19 [History Confirmed 02/23/19] PMH/Surg Hx/FS Hx/Imm Hx Previously Healthy: Yes Endocrine/Hematology History: Denies: Hx Diabetes, Hx Thyroid Disease, Hx Anemia Cardiovascular History: Reports: Hx Angina Denies: Hx Coronary Artery Disease, Hx Hypercholesterolemia, Hx Hypertension , Hx Myocardial Infarction, Hx Valvular Heart Disease Respiratory History: Reports: Hx Asthma - childhood, Hx Chronic Obstructive Pulmonary Disease (COPD) GI History: Reports: Hx Gastroesophageal Reflux Disease, Other GI Disorders - GERD Denies: Hx Jaundice, Hx Ulcer Sensory History: Reports: Hx Cataracts, Hx Contacts or Glasses - for driving only Denies: Hx Hearing Aid Opthamlomology History: Reports: Hx Cataracts, Hx Contacts or Glasses - for driving only Psychiatric History: Reports: Hx Anxiety, Hx Depression, Hx Panic Disorder, Hx Community Mental Health Tx - PR[facility] program [facility], Hx Bipolar Disorder - patient disagrees with diagnosis, Hx Substance Abuse - marijuana - quit 2006, Other Psychiatric Issues/Disorders - Hx of panic attacks Denies: Hx Eating Disorder, Hx Inpatient Treatment, Hx Suicide Attempt, Hx of Violent Episodes Against Others - Surgical History Surgery Procedure, Year, and Place: vasectomy - 2002 - Immunization History Date of Tetanus Vaccine: unk Date of Influenza Vaccine: none Infectious Disease History: No Infectious Disease History: Denies: Hx Hepatitis, Hx Human Immunodeficiency Virus (HIV), Traveled Outside the [place] in Last 30 Days - Family History Known Family History: Positive: Cardiac Disease, Hypertension, Diabetes, Other - CVA - Social History Alcohol Use: None Hx Substance Use: No Substance Use Type: Reports: None Hx Tobacco Use: Yes Smoking Status (MU): Former Smoker Type: Cigarettes Amount Used/How Often: 3 pouches per day Have You Smoked in the Last Year: No Review of Systems Positive: Fever. Negative: Chills Negative: Erythema Negative: Sore Throat Negative: Chest Pain Negative: Shortness Of Breath, Cough Negative: Abdominal Pain, Vomiting, Nausea Negative: dysuria, hematuria Positive: Myalgia - low back pain. Negative: Edema Negative: Rash Neurological: Other - dizzy Positive: Syncope. Negative: Headache All Other Systems Reviewed And Are Negative: Yes Physical Exam - Summary Physical Exam Summary: Constitutional: Well-developed, Well-nourished, Alert. (-) Distressed Skin: Warm, Dry HENT: Normocephalic; Atraumatic Eyes: Conjunctiva normal Neck: Musculoskeletal ROM normal neck. (-) JVD, (-) Stridor, (-) Tracheal deviation Cardio: Rhythm regular, rate normal, Heart sounds normal; Intact distal pulses; The pedal pulses are 2+ and symmetric. Radial pulses are 2+ and symmetric. (-) Murmur Pulmonary/Chest wall: Effort normal. (-) Respiratory distress, (-) Wheezes, (-) Rales Abd: Soft, (-) tenderness, (-) Distension, (-) Guarding, (-) Rebound Musculoskeletal: (-) Edema, Lower extremity strength is a 5/5 bilaterally Lymph: (-) Cervical adenopathy Neuro: Alert, Oriented x3 Psych: Mood and affect Normal Triage Information Reviewed: Yes Vital Signs On Initial Exam: Initial Vitals Temp Pulse Resp BP Pulse Ox 98.8 F 67 18 108/47 98 02/23/19 11:23 02/23/19 11:23 02/23/19 11:23 02/23/19 11:23 02/23/19 11:23 Vital Signs Reviewed: Yes Diagnostics - Vital Signs Vital Signs Temp Pulse Resp BP Pulse Ox 02/23/19 11:23 98.8 F 67 18 108/47 98 - Laboratory Lab Results: Lab Results 02/23/19 02/23/19 Range/Units 11:56 11:56 WBC 8.5 (3.5-10.8) 10^3/uL RBC 4.24 (4.18-5.48) 10^6 /uL Hgb 14.2 (14.0-18.0) g/dL Hct 42 (42-52) % MCV 99 H (80-94) fL MCH 34 H (27-31) pg MCHC 34 (31-36) g/dL RDW 13 (10-15) % Plt Count 190 (150-450) 10^3/uL MPV 7.5 (7.4-10.4) fL Neut % (Auto) 82.7 % Lymph % (Auto) 10.5 % [place] % (Auto) 6.5 % Eos % (Auto) 0.1 % Baso % (Auto) 0.2 % Absolute Neuts (auto) 7.0 (1.5-7.7) 10^3/ul Absolute Lymphs (auto) 0.9 L (1.0-4.8) 10^3/ul Absolute Monos (auto) 0.6 (0-0.8) 10^3/ul Absolute Eos (auto) 0.0 (0-0.6) 10^3/ul Absolute Basos (auto) 0.0 (0-0.2) 10^3/ul Absolute Nucleated RBC 0.0 10^3/ul Nucleated RBC % 0.0 Sodium 139 (135-145) mmol/L Potassium 3.9 (3.5-5.0) mmol/L Chloride 107 (101-111) mmol/L Carbon Dioxide 27 (22-32) mmol/L Anion Gap 5 (2-11) mmol/L BUN 21 (6-24) mg/dL Creatinine 1.21 H (0.67-1.17) mg/dL Est GFR ( Amer) 76.5 (>60) Est GFR (Non-Af Amer) 63.2 (>60) BUN/Creatinine Ratio 17.4 (8-20) Glucose 116 H (70-100) mg/dL Calcium 8.9 (8.6-10.3) mg/dL Total Bilirubin 0.50 (0.2-1.0) mg/dL AST 18 (13-39) U/L ALT 17 (7-52) U/L Alkaline Phosphatase 95 (34-104) U/L Troponin I 0.00 (<0.04) ng/mL Total Protein 6.9 (6.4-8.9) g/dL Albumin 4.3 (3.2-5.2) g/dL Globulin 2.6 (2-4) g/dL Albumin/Globulin Ratio 1.7 (1-3) Result Diagrams: 02/23/19 11:56 02/23/19 11:56 Lab Statement: Any lab studies that have been ordered have been reviewed, and results considered in the medical decision making process. - EKG 1129 Cardiac Rate: Bradycardia - [address] Segment: Normal Ectopy: None Summary of EKG Findings: Normal EKG. NSR with a rate of 59 BPM and Normal [place] , Normal Interval, Normal ST, no STEMI. Interpreted by Dr. Chaidez at 1222 . Course/Dx Course Of Treatment: This patient is a 53 year old M presenting to [facility] with a chief complaint of syncope following low back pain since 199902/22/19. He stated that he was unable to stand and when he went to the bathroom the next morning that night he had a syncopal episode due to pain which is rated a 9/10. The condition has been worsening since this morning when 2 syncopal episodes occurred. His PE found that he has Lower extremity strength is a 5/5 bilaterally and is otherwise a normal exam. His EKG showed no abnormal findings and was interpreted as a normal EKG: NSR with a rate of 59 BPM and Normal [place], Normal Interval, Normal ST, no STEMI. Dr. Rodriguez, hospitalist, was contacted and Dx the pt with multiple syncopal episodes. The pt will be admitted for further investigations. - Diagnoses Provider Diagnoses: Syncopal episodes - Physician Notifications Discussed Care of Patient With: Phoenix Rodriguez Time Discussed With Above Provider: 13:37 Instructed by Provider To: Admit As Inpatient Discharge - Sign-Out/Discharge Documenting (check all that apply): Patient Departure - admitted Patient Received Moderate/Deep Sedation with Procedure: No - Discharge Plan Condition: Stable Disposition: ADMITTED TO [facility] Referrals: Maxwell Suero MD [Primary Care Provider] - - Attestation Statements Document Initiated by Scribe: Yes Documenting Scribe: Morris Del Rio Provider For Whom Scribe is Documenting (Include Credential): Shubham Chaidez MD Scribe Attestation: Morris Concepcion, scribed for Shubham Chaidez MD on 02/23/19 at 1335. Status of Scribe Document: Ready
[2019-02-23] MEDS ORDERED: Albuterol HFA INHALER* 8 gm MDI INH PRN (14:20)
--- NOTE | 2019-02-23 14:53 | ADMNOTE ---
Subjective Date of Service: 02/23/19 Interval History: ADMISSION HISTORY AND PHYSICAL EXAM: Allergies Allergy/AdvReac Type Severity Reaction Status Date / Time shellfish derived Allergy Unknown Verified 10/03/17 22:13 Reaction Details Home Medications Medication Instructions Recorded Confirmed Type Mirtazapine TAB* [Remeron TAB*] 30 mg PO BEDTIME #15 tab 10/10/17 02/23/19 Rx Albuterol HFA INHALER* [Ventolin 1 - 2 puff INH Q6H PRN 02/23/19 02/23/19 History HFA Inhaler*] Gabapentin CAP(*) [Neurontin 300 300 mg PO TID 02/23/19 02/23/19 History CAP(*)] Lansoprazole SOLUTAB* [Prevacid 30 mg SL DAILY 02/23/19 02/23/19 History Solutab*] Tiotropium CAP.INH* [Spiriva 1 cap.inh INH DAILY 02/23/19 02/23/19 History CAP.INH*] clonazePAM TAB(*) [KlonoPIN TAB(*)] 0.5 mg PO BID PRN 02/23/19 02/23/19 History HPI: Yesterday the patient was in his usual state of health until he picked up a 25 lb toolbox and strained his back. He had severe pain throughout last night, at times radiating down his R leg. He took ibuprofen 600 mg last night and again this AM. He woke at 4 AM to go to the BR. He was in a lot of pain. After urinating he went back to bed but passed out before he got to bed. A housemate helped him get up and back to bed. About 8 AM he woke and went to the BR again. He was still in a lot of pain. He had syncope again after urinating. He has had many episodes of back pain before, sometimes radiating down his R leg , never requiring hospitalization for the pain. He never had syncope before. Family History: Findings - Father of lung disease and [place], mother of ALS. Brother A&W. Social History: Findings - Single, lives with housemates. Brother Carlos Marion is his SDM. No children. Chews tobacco, no alcohol use. 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 Past Medical History: Findings - Hospitalized for depression once, still sees a psychiatrist. No surgery. Review of Systems - Measurements Intake and Output: Intake and Output Last 24 Hours 02/21/19 02/22/19 02/23/19 02/24/19 06:59 06:59 06:59 06:59 Weight 132 lb - Review of Systems Constitutional Symptoms: Negative: Weight Gain, Weight Loss, Weakness, Fatigue, Fever, Night Sweats, Unexplained Falls, Other Dermatology: Positive: Normal HEENT: Positive: Normal Eyes: Positive: Normal Thyroid: Positive: Normal Pulmonary: Positive: Normal Cardiology: Positive: Normal Gastroenterology: Positive: Normal Genital - Urinary: Positive: Normal Genitourinary - Male: Negative: Prostatism, Erectile Dysfunction, Family Hx of Prostate Cancer, Other Musculoskeletal: Positive: Low Back Pain Endocrinology: Positive: Normal Hematologic/Lymphatic: Negative: Anemia, Easy Bruising, Hx Leukemia, Hx Lymphoma, Use of Anticoagulant, Use of Antiplatelet Drugs, Other Neurology: Positive: Normal Psychiatry: Positive: Depression Allergic/Immunologic: Negative: Hx Anaphylaxis, Hx Angioedema, Hx Environmental, Hx Seasonal, Asthma, Hx HIV, Immunocompromise, Swollen Glands LymphNodes, Other Objective Active Medications: Albuterol (Ventolin Hfa Inhaler*) 2 puff INH Q4H PRN PRN Reason: SHORTNESS OF BREATH Clonazepam (Klonopin Tab(*)) 0.5 mg PO 0900,1400 PRN PRN Reason: ANXIETY Clonazepam (Klonopin Tab(*)) 1 mg PO BEDTIME ANTONY Enoxaparin Sodium (Lovenox(*)) 40 mg SUBCUT Q24H ANTONY Gabapentin (Neurontin Cap(*)) 300 mg PO TID [facility] Sodium Chloride (Ns 0.9% 1000 Ml) 2,000 mls @ 1,000 mls/hr IV .PER RATE ONE Stop: 02/23/19 14:45 Last Admin: 02/23/19 13:22 Dose: 1,000 mls/hr Lansoprazole (Prevacid Solutab*) 30 mg PO DAILY [facility] Vital Signs - 8 hr 02/23/19 02/23/19 02/23/19 11:23 13:27 13:29 Temperature 98.8 F Pulse Rate 67 52 62 Respiratory 18 Rate Blood Pressure 108/47 99/60 (mmHg) O2 Sat by Pulse 98 97 95 Oximetry 02/23/19 02/23/19 02/23/19 13:31 13:34 13:41 Temperature Pulse Rate 70 60 Respiratory Rate Blood Pressure 98/60 97/60 97/60 (mmHg) O2 Sat by Pulse 99 Oximetry Oxygen Devices in Use Now: None Appearance: Alert, supine on ED stretcher. In good spirits, looks comfortable. Pain level 0 -1. Eyes: No Scleral Icterus Neck: NL Appearance and Movements; NL JVP, No Thyroid Enlargement, Masses Respiratory: Symmetrical Chest Expansion and Respiratory Effort, Clear to Auscultation, Clear to Percussion Cardiovascular: NL Sounds; No Murmurs; No JVD, RRR, No Edema, - Abdominal: NL Sounds; No Tenderness; No Distention, No Hepatosplenomegaly, - Extremities: No Edema, No Clubbing, Cyanosis, - Skin: No Rash or Ulcers, No Nodules or Sclerosis, - Neurological: Alert and Oriented x 3, NL Sensation, - - Able to lift both legs off bed well. Foot dorsiflexion and plantar flexion strong BL. No tremor. Result Diagrams: 02/23/19 11:56 02/23/19 11:56 Additional Lab and Data: Lab Results 02/23/19 02/23/19 Range/Units 11:56 11:56 WBC 8.5 (3.5-10.8) 10^3/uL RBC 4.24 (4.18-5.48) 10^6 /uL Hgb 14.2 (14.0-18.0) g/dL Hct 42 (42-52) % MCV 99 H (80-94) fL MCH 34 H (27-31) pg MCHC 34 (31-36) g/dL RDW 13 (10-15) % Plt Count 190 (150-450) 10^3/uL MPV 7.5 (7.4-10.4) fL Neut % (Auto) 82.7 % Lymph % (Auto) 10.5 % [place] % (Auto) 6.5 % Eos % (Auto) 0.1 % Baso % (Auto) 0.2 % Absolute Neuts (auto) 7.0 (1.5-7.7) 10^3/ul Absolute Lymphs (auto) 0.9 L (1.0-4.8) 10^3/ul Absolute Monos (auto) 0.6 (0-0.8) 10^3/ul Absolute Eos (auto) 0.0 (0-0.6) 10^3/ul Absolute Basos (auto) 0.0 (0-0.2) 10^3/ul Absolute Nucleated RBC 0.0 10^3/ul Nucleated RBC % 0.0 Sodium 139 (135-145) mmol/L Potassium 3.9 (3.5-5.0) mmol/L Chloride 107 (101-111) mmol/L Carbon Dioxide 27 (22-32) mmol/L Anion Gap 5 (2-11) mmol/L BUN 21 (6-24) mg/dL Creatinine 1.21 H (0.67-1.17) mg/dL Est GFR ( Amer) 76.5 (>60) Est GFR (Non-Af Amer) 63.2 (>60) BUN/Creatinine Ratio 17.4 (8-20) Glucose 116 H (70-100) mg/dL Calcium 8.9 (8.6-10.3) mg/dL Total Bilirubin 0.50 (0.2-1.0) mg/dL AST 18 (13-39) U/L ALT 17 (7-52) U/L Alkaline Phosphatase 95 (34-104) U/L Troponin I 0.00 (<0.04) ng/mL Total Protein 6.9 (6.4-8.9) g/dL Albumin 4.3 (3.2-5.2) g/dL Globulin 2.6 (2-4) g/dL Albumin/Globulin Ratio 1.7 (1-3) Assess/Plan/Problems-Billing Assessment: - Patient Problems (1) Syncope Current Visit: Yes Status: Acute Code(s): R55 - SYNCOPE AND COLLAPSE SNOMED Code(s): 439498333 Comment: May be micturition syncope, exacerbated by pain. Echo, tele. Encourage ambulation. (2) Former smoker Current Visit: No Status: Acute Code(s): Z87.891 - PERSONAL HISTORY OF NICOTINE DEPENDENCE SNOMED Code(s): 5516093 Comment: Nicotine gum PRN at pt request. (3) Major depressive disorder, single episode, unspecified Current Visit: No Status: Acute Code(s): F32.9 - MAJOR DEPRESSIVE DISORDER, SINGLE EPISODE, UNSPECIFIED SNOMED Code(s): 82854994 Comment: Continue mirtazapine and clonazepam at home doses. Pt has regular outpt psychiatric care. (4) Chronic GERD Current Visit: No Status: Acute Code(s): K21.9 - GASTRO-ESOPHAGEAL REFLUX DISEASE WITHOUT ESOPHAGITIS SNOMED Code(s): 022821777 Comment: Home lansoprazole ordered.
[2019-02-23] MEDS ORDERED: Enoxaparin(*) 40 MG/0.4 ML SYR SUBCUT SCH (15:00)
[2019-02-23] MEDS: Ibuprofen TAB* 600 MG PO PRN (16:17)
[2019-02-23] MEDS: clonazePAM TAB(*) 0.5 MG PO PRN (16:17)
[2019-02-23] MEDS: Nicotine* 2MG (FRUIT FLAVOR) GUM PO PRN ×2 (16:18→19:30)
[2019-02-23] MEDS: Gabapentin CAP(*) 300 MG PO SCH ×2 (16:22→21:11)
[2019-02-23 18:07] LABS: TSH (Thyroid Stimulating Horm) 2.43 mcIU/mL (0.34-5.60)
[2019-02-23] MEDS ORDERED: Mirtazapine TAB* 15 MG PO SCH (21:00)
[2019-02-23] MEDS ORDERED: clonazePAM TAB(*) 1 MG PO SCH (21:00)
--- NOTE | 2019-02-24 05:33 | ECHO ---
*[facility]* [place] [address] Fax #: [phone] Transthoracic Echocardiogram Patient: Magno Marion : 1965 Study Date: 02/23/2019 Age: 53 Gender: M HR: 59 bpm Height: 67 in /170.2 cm BSA: 1.69 m^2 Weight: 131.7 lb /59.9 kg BMI: 20.7 kg/m^2 *Cooker Mechanic: * Ana Rosa Eldridge [facility] *Referring Physician: * Phoenix Rodriguez *Reading Physician: * Kris Gregg MD Indications: Abnormal EKG. History: COPD,anxiety-depression. Syncope. Former smoker. Conclusions Summary: - Left ventricle: Systolic function is normal. The estimated ejection fraction is 55-60%. - Tricuspid valve: There is trace to mild regurgitation. Study data: Transthoracic echocardiogram. Procedure: Transthoracic echocardiography was performed. Image quality was suboptimal. The study was technically limited due to COPD. The parasternal window was low, thus no M-mode measurements were recorded. Intravenous Definity , 4 mlswas administered. Image enhancement administered by Complete 2D, spectral Doppler, and color flow Doppler. Location: Emergency department. Patient status: Inpatient. No prior study is available for comparison. Rhythm: Bradycardia. Findings Left ventricle: The cavity size is normal. Wall thickness is normal. Systolic function is normal. The estimated ejection fraction is 55-60%. Wall motion is normal; there are no regional wall motion abnormalities. Left ventricular diastolic function parameters are normal. Right ventricle: Poorly visualized. The cavity size is normal. Wall thickness is normal. Systolic function is normal. Systolic pressure is within the normal range. Ventricular septum: Well visualized. Left atrium: Not well visualized. The atrium is normal in size. Right atrium: Not well visualized. The atrium is normal in size. Atrial septum: Well visualized. Mitral valve: Well visualized. The leaflets are mildly thickened. No echocardiographic evidence for prolapse. There is no significant regurgitation. Aortic valve: Not well visualized. The valve is trileaflet. The leaflets are normal thickness. There is no evidence of stenosis. There is no significant regurgitation. Tricuspid valve: Not well visualized. The leaflets are normal thickness. There is no evidence of stenosis. There is trace to mild regurgitation. Pulmonic valve: Not well visualized. Aorta: The aorta is well visualized, normal size, and noncalcified. The aortic root appears normal. The aortic arch appears normal. Pericardium: There is no pericardial effusion. No evidence of pleural fluid accumulation. Pulmonary arteries: Systolic pressure is within the normal range. Systemic veins: Inferior vena cava: The vessel is normal in size. There is (>= 50%) respiratory change in the IVC dimension. Pulmonary veins: Not well visualized. Measurements Left ventricle Value Ref Aortic valve continued Value Ref ROSHAN, LAX 4.2 cm 4.2 - 5.8 VTI, S 26.2 cm ----- ESD, LAX 3.0 cm 2.5 - 4.0 Mean grad, S 2.0 mm Hg ----- FS, LAX 29 % 25 - 43 Peak grad, S 5.0 mm Hg ----- PW, ED, LAX 0.8 cm 0.6 - 1.0 LVOT/AV, VTI ratio 0.8 ----- FS 29 % 25 - 43 Mid-wall FS 15 % --------- Mitral valve Value Ref PW, ED 0.8 cm 0.6 - 1.0 Peak E 0.73 m/sec ----- PW/ID, ED 0.19 --------- Peak A 0.47 m/sec ----- E', lat blanca, TDI 12.2 cm/sec >=10.0 Decel time 215 ms ----- E/e', lat blanca, TDI 6 --------- Peak grad, D 2.1 mm Hg --- -- E', med blanca, TDI 13.6 cm/sec >=7.0 Peak E/A ratio 1.6 ----- E/e', med blanca, TDI 5 --------- E', avg, TDI 12.9 cm/sec --------- Pulmonic valve Value Ref E/e', avg, TDI 6 <=14 Peak v, S 0.82 m/sec ----- Peak grad, S 3.0 mm Hg ----- LVOT Value Ref Peak quiana, S 0.7 m/sec --------- Tricuspid valve Value Ref VTI, S 21.0 cm --------- TR peak v 2.17 m/sec <=2.8 Mean grad, S 1 mm Hg --------- Peak RV-RA grad, S 19 mm Hg ----- Max TR quiana 2.17 m/sec ----- Ventricular septum Value Ref IVS, ED 0.6 cm 0.6 - 1.0 Aortic root Value Ref Root diam 2.3 cm <3.9 Right ventricle Value Ref Root max diam, ED 2.3 cm <3.9 ROSHAN, LAX 2.4 cm --------- Aortic arch Value Ref Right atrium Value Ref Arch diam 2.0 cm ----- Estimated RAP 3 mm Hg --------- Decending aorta Value Ref Aortic valve Value Ref Víctor peak quiana 1.27 m/sec ----- Blanca diam, ED 1.5 cm --------- Blanca diam/bsa, ED 0.9 cm/m^2 --------- Inferior vena cava Value Ref Peak v, S 1.07 m/sec --------- Diam 1.7 cm ----- Legend: (L) and (H) kylie values outside specified reference range. Prepared and electronically signed by Kris Gregg MD 02/24/2019 05:33
[2019-02-24] MEDS: Gabapentin CAP(*) 300 MG PO SCH (08:18)
[2019-02-24] MEDS: Ibuprofen TAB* 600 MG PO PRN (08:18)
[2019-02-24] MEDS: Nicotine* 2MG (FRUIT FLAVOR) GUM PO PRN (08:43)
[2019-02-24] MEDS: clonazePAM TAB(*) 0.5 MG PO PRN (08:43)
[2019-02-24] MEDS ORDERED: Tiotropium CAP.INH* CAP.INH/18 MCG (USE ORDER SET !) INH SCH (09:00)
[2019-02-24] MEDS ORDERED: Spiriva Inhaler DEVICE* 1 EACH DEVICE INH ONE (09:00)
[2019-02-24] MEDS ORDERED: Lansoprazole SOLUTAB* 30 MG PO SCH (09:00)
--- NOTE | 2019-02-24 10:33 | DS ---
CC: Dr. Suero DISCHARGE SUMMARY: DATE OF ADMISSION: 02/23/19 DATE OF DISCHARGE: 02/24/19 HISTORY OF PRESENT ILLNESS: This 53-year-old man presented with 2 episodes to syncope, one was at 4 a.m., he had gone to the bathroom. The night before he had strained his back picking up a 25-pound t ool box, he was in lot of pain when he went to the bathroom. After urinating, he did not make it dimitri k to the bed. He passed out and fell to the floor. A housemate helped him get back into bed. About 8 a.m., he again was still in lot of pain, went to the bathroom and had another syncopal episode. H is [id number] drove him to the hospital. He is still having a fair amount of pain but not as bad as the acute episode. He says he has had a dozen of these episodes of back pain, he does not recall ever having syncope before. He was admitted to a monitored bed. He had some bradycardia down to 40 for an hour or two on arrival at the floor but this resolved. On the morning of discharge, his vital signs were good. His heart rate was 63. He felt well except for some residual back pain which he describes as stiff back. His echocardiogram was unremarkable. He had a TSH of 2.43 on admission. Other labs were unremarkabl e except for mean corpuscular volume of 99. I note his mean corpuscular volume has often been simila r elevation going back to 2010, possibly a B12 and folate level could be done as an outpatient. FINAL DIAGNOSES: 1. Post micturition syncope. 2. Low back strain. 3. Nicotine dependence chewing tobacco. 4. Chronic obstructive pulmonary disease. 5. History of major depression. 6. Gastroesophageal reflux disease. DISCHARGE MEDICATIONS: 1. Clonazepam 1 mg at bedtime 0.5 mg a.m. and afternoon. 2. Ibuprofen 600 mg every 6 hours p.r.n. 3. Mirtazapine 30 mg h.s. 4. Albuterol inhaler p.r.n. 5. Lansoprazole 30 mg daily. 6. Gabapentin 300 mg t.i.d. 7. Tiotropium one capsule daily. CONDITION ON DISCHARGE: Stable. DISPOSITION ON DISCHARGE: Discharged home. [id number]/[facility] [place] #: [id number]
[2019-02-24 11:55] VITALS: BP 99/53
== END 2019-02-24 12:27 | disposition home or self-care (01) ==
LOC: ED 11:22 → MEDTELE 12:22 → UNDOADMOB 12:22 → MEDTELE 13:49
PROVIDERS: ADMIT Internal Medicine; ATTEND Internal Medicine
DX: R55 Syncope and collapse (principal); R39.198 Other difficulties with micturition; S39.012A Strain of muscle, fascia and tendon of lower back, initial encounter; X50.0XXA Overexertion from strenuous movement or load, initial encounter; Y92.9 Unspecified place or not applicable; F17.220 Nicotine dependence, chewing tobacco, uncomplicated; F32.9 Major depressive disorder, single episode, unspecified; K21.9 Gastro-esophageal reflux disease without esophagitis; Z79.899 Other long term (current) drug therapy; J44.9 Chronic obstructive pulmonary disease, unspecified; R00.1 Bradycardia, unspecified
CPT/HCPCS: 36415; 80053; 83605; 84443; 84484; 85025; 93005; 93306; 94640; 96360; 96361; 99284; A9270-GY; C8929; G0378